=== PATIENT | male | born 1975 | race African-American/Black ===

== ENCOUNTER 2019-08-19 15:38 | Inpatient (IN) | payer OTHER ==
[~2019-08-19] VITALS: Ht 195.6 cm; Wt 115.0 kg
[2019-08-19] MEDS ORDERED: NITROGLYCERIN SUBLINGUAL 0.4 MG BOTTLE OF 25. SL STA (16:07)
--- NOTE | 2019-08-19 16:14 | PHYS DOC ---
Past Medical History Past Medical History: High Cholesterol, Hypertension, CA Past Surgical History: Other Additional Past Surgical Histo: 2 cardiac stents Alcohol Use: None Drug Use: None Adult General Chief Complaint Chief Complaint: CHEST PAIN HPI HPI Patient is a 44 year old -year-old male that states she's been having chest pain for the last couple days that got severe this morning. The patient states that he's also been having left arm pain this been ongoing for several days. Rates his pain as 8 out of 10 in severity. The patient has a history of an CA, hypertension, and dyslipidemia. He quit smoking 2 years ago. Review of Systems Review of Systems Constitutional: Denies fever or chills [] Eyes: Denies change in visual acuity, redness, or eye pain [] HENT: Denies nasal congestion or sore throat [] Respiratory: Denies cough or shortness of breath [] Cardiovascular: No additional information not addressed in HPI [] GI: Denies abdominal pain, nausea, vomiting, bloody stools or diarrhea [] : Denies dysuria or hematuria [] Musculoskeletal: Reports L arm pain. Integument: Denies rash or skin lesions [] Neurologic: Denies headache, focal weakness or sensory changes [] Endocrine: Denies polyuria or polydipsia [] Complete systems were reviewed and found to be within normal limits, except as documented in this note. Current Medications Current Medications Current Medications Medications (Trade) Dose Ordered Sig/[facility] Start Time Stop Time Status Last Admin Dose Admin Aspirin (Children'S Aspirin) 324 mg 1X ONCE 08/19/19 16:15 08/19/19 16:14 DC Morphine Sulfate (Morphine Sulfate) 4 mg 1X ONCE 08/19/19 16:30 08/19/19 16:31 DC 08/19/19 16:29 4 MG Nitroglycerin (Nitrostat) 0.4 mg PRN Q5MIN STAT 08/19/19 16:07 08/19/19 16:14 DC Sodium Chloride 1,000 ml @ 1,000 mls/hr 1X ONCE 08/19/19 16:15 08/19/19 17:14 DC 08/19/19 16:29 1,000 MLS/HR Allergies Allergies Allergies Coded Allergies Type Severity Reaction Last Updated Verified No Known Drug Allergies 08/19/19 No Physical Exam Physical Exam Constitutional: Well developed, well nourished, no acute distress, non-toxic appearance. [] HENT: Normocephalic, atraumatic, bilateral external ears normal, oropharynx mo ist, no oral exudates, nose normal. [] Eyes: PERRLA, EOMI, conjunctiva normal, no discharge. [] Neck: Normal range of motion, no tenderness, supple, no stridor. [] Cardiovascular:Heart rate regular rhythm, no murmur [] Lungs & Thorax: Bilateral breath sounds clear to auscultation [] Abdomen: Bowel sounds normal, soft, no tenderness, no masses, no pulsatile masses. [] Skin: Warm, dry, no erythema, no rash. [] Back: No tenderness, no CVA tenderness. [] Extremities: No tenderness, no cyanosis, no clubbing, ROM intact, no edema. [] Neurologic: Alert and oriented X 3, normal motor function, normal sensory function, no focal deficits noted. [] Psychologic: Affect normal, judgement normal, mood normal. [] Current Patient Data Vital Signs Vital Signs Date Time Temp Pulse Resp B/P (MAP) Pulse Ox O2 Delivery O2 Flow Rate FiO2 08/19/19 16:29 15 99 Room Air 08/19/19 15:46 98.5 70 167/94 (118) 2.0 98.5 Lab Values Laboratory Tests Test 08/19/19 15:49 White Blood Count 6.6 x10^3/uL (4.0-11.0) Red Blood Count 4.96 x10^6/uL (4.30-5.70) Hemoglobin 15.3 g/dL (13.0-17.5) Hematocrit 45.4 % (39.0-53.0) Mean Corpuscular Volume 92 fL (79-100) Mean Corpuscular Hemoglobin 31 pg (25-35) Mean Corpuscular Hemoglobin Concent 34 g/dL (31-37) Red Cell Distribution Width 13.5 % (11.5-14.5) Platelet Count 196 x10^3/uL (140-400) Neutrophils (%) (Auto) 70 % (31-73) Lymphocytes (%) (Auto) 22 % (24-48) L Monocytes (%) (Auto) 6 % (0-9) Eosinophils (%) (Auto) 1 % (0-3) Basophils (%) (Auto) 0 % (0-3) Neutrophils # (Auto) 4.7 x10^3/uL (1.8-7.7) Lymphocytes # (Auto) 1.5 x10^3/uL (1.0-4.8) Monocytes # (Auto) 0.4 x10^3/uL (0.0-1.1) Eosinophils # (Auto) 0.1 x10^3/uL (0.0-0.7) Basophils # (Auto) 0.0 x10^3/uL (0.0-0.2) Prothrombin Time 12.6 SEC (11.7-14.0) Prothrombin Time INR 1.0 (0.8-1.1) Activated Partial Thromboplast Time 30 SEC (24-38) Sodium Level 142 mmol/L (136-145) Potassium Level 4.6 mmol/L (3.5-5.1) Chloride Level 106 mmol/L (98-107) Carbon Dioxide Level 31 mmol/L (21-32) Anion Gap 5 (6-14) L Blood Urea Nitrogen 11 mg/dL (8-26) Creatinine 1.0 mg/dL (0.7-1.3) Estimated GFR (Cockcroft-Gault) 97.8 BUN/Creatinine Ratio 11 (6-20) Glucose Level 120 mg/dL (70-99) H Calcium Level 9.6 mg/dL (8.5-10.1) Total Bilirubin 0.3 mg/dL (0.2-1.0) Aspartate Amino Transferase (AST) 31 U/L (15-37) Alanine Aminotransferase (ALT) 47 U/L (16-63) Alkaline Phosphatase 99 U/L (46-116) Creatine Kinase 296 U/L (39-308) Creatine Kinase MB (Mass) 1.2 ng/mL (0.0-3.6) Creatine Kinase MB Relative Index 0.4 % (0-4) Troponin I Quantitative 0.039 ng/mL (0.000-0.055) Total Protein 7.3 g/dL (6.4-8.2) Albumin 4.2 g/dL (3.4-5.0) Albumin/Globulin Ratio 1.4 (1.0-1.7) Laboratory Tests 08/19/19 15:49 Laboratory Tests 08/19/19 15:49 EKG EKG EKG interpreted by Dr. Joseph Leftward axis, Sinus with rate of 45. No STEMI.[] Radiology/Procedures Radiology/Procedures [][facility] [address] [place] [address] IMAGING REPORT Signed PATIENT: BANDAR PASTRANA ACCOUNT: [id number] : 1975 LOCATION: ER AGE: 44 SEX: M EXAM STATUS: REG ER ORD. PHYSICIAN: CHRISTOPHER LAZCANO APRN REASON: chest pain PROCEDURE: CHEST PA & LATERAL CHEST PA LATERAL INDICATION: Chest pain. COMPARISON STUDY: None. FINDINGS: Lungs: Low lung volume. No consolidation. Prominent interstitial markings. Pleura: No pleural effusion or pneumothorax. Heart and Mediastinum: Mild cardiomegaly. The great vessels of the thorax are normal. Bones and Soft Tissues: The bones and soft tissues are within normal limits. IMPRESSION: Low lung volume with prominent interstitial markings, which may reflect mild interstitial edema. No confluent consolidation. Electronically signed by: Olena Kemp MD (08/19/2019 4:50 PM) [facility] DICTATED and SIGNED BY: OLENA KEMP MD DATE: 08/19/19 672 Course & Med Decision Making Course & Med Decision Making Pertinent Labs and Imaging studies reviewed. (See chart for details) Will get labs, chest x-ray, EKG, Patient was given asa and nitro x 4 on ambulance which did not help his pain. Initial labs are negative. Discussed with Dr. Coles and he accepts admission to hospital. Consulted Cards and ordered serial Cardiac Enzymes. Dragon Disclaimer Dragon Disclaimer This electronic medical record was generated, in whole or in part, using a voice recognition dictation system. Departure Departure Impression: Primary Impression: Chest pain Disposition: ADMITTED INPATIENT Admitting Physician: HIMJeffry Condition: GUARDED Referrals: NO PCP (PCP) The HEART Score for CP Pts HEART Score for Chest Pain: HEART Score for Chest Pain Response (Comments) Value History Highly Suspicious 2 ECG Normal 0 Age >45 - < 65 1 Risk Factors >3 Risk Factors or Hx CAD 2 Troponin < Normal Limit 0 Total 5 Risk Factors: Risk Factors: DM, Current or recent (<one month) smoker, HTN, HLP, family history of CAD, obesity. Risk Scores: Score 0 - 3: 2.5% MACE over next 6 weeks - Discharge Home Score 4 - 6: 20.3% MACE over next 6 weeks - Admit for Clinical Observation Score 7 - 10: 72.7% MACE over next 6 weeks - Early Invasive Strategies Problem Qualifiers Primary Impression: Chest pain Chest pain type: unspecified Qualified Codes: R07.9 - Chest pain, unspecified CHRISTOPHER LAZCANO APRN Aug 19, 2019 16:14
[2019-08-19] MEDS ORDERED: IV NORMAL SALINE 1000ML BAG 1,000 ML IV ONE (16:15)
[2019-08-19] MEDS ORDERED: ASPIRIN CHEWABLE 81 MG TABLET. PO ONE (16:15)
[2019-08-19 16:17] LABS: BASO % 0 % (0-3); EOS # 0.1 x10^3/uL (0.0-0.7); EOS % 1 % (0-3); HEMATOCRIT 45.4 % (39.0-53.0); HEMOGLOBIN 15.3 g/dL (13.0-17.5); LYMPH # 1.5 x10^3/uL (1.0-4.8); LYMPH % 22 % (24-48); MEAN CORPUSCULAR HEMOGLOBIN 31 pg (25-35); MEAN CORPUSCULAR HGB CONC 34 g/dL (31-37); MEAN CORPUSCULAR VOLUME 92 fL (79-100); MONO # 0.4 x10^3/uL (0.0-1.1); MONO % 6 % (0-9); NEUT # 4.7 x10^3/uL (1.8-7.7); NEUT % 70 % (31-73); PLATELET COUNT 196 x10^3/uL (140-400); RED BLOOD COUNT 4.96 x10^6/uL (4.30-5.70); RED CELL DISTRIBUTION WIDTH 13.5 % (11.5-14.5); WHITE BLOOD COUNT 6.6 x10^3/uL (4.0-11.0)
[2019-08-19 16:23] LABS: CALCIUM 9.6 mg/dL (8.5-10.1); GFR 97.8; POTASSIUM 4.6 mmol/L (3.5-5.1)
--- NOTE | 2019-08-19 16:24 | EKG ---
[facility] [address] [place] [address] Test Date: 2019-08-19 Test Time: 15:42:38 Pat Name: BANDAR PASTRANA Department: Room: Gender: M Quick Print Operator: : 1975 Requested By: CHRISTOPHER LAZCANO Order Number: [id number] Reading MD: Kiko Payne MD Measurements Intervals [place] Rate: 69 P: 0 DE: 168 QRS: -18 QRSD: 104 T: 59 QT: 410 QTc: 440 Interpretive Statements SINUS RHYTHM NON-SPECIFIC ST/T CHANGES Electronically Signed On 08-19-2019 22:57:34 CDT by Kiko Payne MD
[2019-08-19 16:26] LABS: PROTHROMBIN TIME PATIENT 12.6 SEC (11.7-14.0)
[2019-08-19 16:29] LABS: ALBUMIN 4.2 g/dL (3.4-5.0); ALBUMIN/GLOBULIN RATIO 1.4 (1.0-1.7); TOTAL BILIRUBIN 0.3 mg/dL (0.2-1.0); TOTAL PROTEIN 7.3 g/dL (6.4-8.2)
[2019-08-19] MEDS ORDERED: MORPHINE SULFATE 4 MG/ML VIAL. IV ONE (16:30)
--- NOTE | 2019-08-19 16:53 | RAD ---
CHEST PA LATERAL INDICATION: Chest pain. COMPARISON STUDY: None. FINDINGS: Lungs: Low lung volume. No consolidation. Prominent interstitial markings. Pleura: No pleural effusion or pneumothorax. Heart and Mediastinum: Mild cardiomegaly. The great vessels of the thorax are normal. Bones and Soft Tissues: The bones and soft tissues are within normal limits. IMPRESSION: Low lung volume with prominent interstitial markings, which may reflect mild interstitial edema. No confluent consolidation. Electronically signed by: Sam Kemp MD (08/19/2019 4:50 PM) [facility]
[2019-08-19] MEDS ORDERED: ONDANSETRON PF 4 MG/2 ML VIAL. IVP PRN ×2 (17:30→20:45)
--- NOTE | 2019-08-19 17:34 | PDOC1 ---
History and Physical Date of Admission Date of Admission DATE: 08/19/19 TIME: 17:34 History of Present Illness History of Present Illness Mr Gan is a 44 yo M inmate w/ PMHx HLD, HTN, CAD with prior IL and x2 stent who arrives with 2 corrections officers with progressive sharp chest pain. Pain is left sided in his chest 8/10 in intensity, sharp in quality. He notes radiation into his left arm and jaw as well as associated nausea. He has been having chest pain for the last couple days that got severe this morning. 2 nights ago the pain began and it remitted with x2 NTG and yesterday with x1 NTG, this morning took 2x NTG but the pain immediately returned. He was sent to ED for further care and received 4 additional NTG en route. He felt his pain improved with fentanyl and morphine. He quit smoking 2 years ago. He does not use illicit drugs EKG shows sinus rhythm with leftward axis. No ST segmental changes. Initial troponin was 0.039, second was 0.09 and CXR shows low lung volumes. Due to his prior history and elevated troponin he will be admitted for further care Past Medical History Cardiovascular: CAD, HTN, Hyperlipidemia Pulmonary: No pertinent hx GI: No pertinent hx Heme/Onc: No pertinent hx Hepatobiliary: No pertinent hx Psych: No pertinent hx Rheumatologic: No pertinent hx Infectious disease: No pertinent hx ENT: No pertinent hx Renal/: No pertinent hx Endocrine: No pertinent hx Dermatology: No pertinent hx Past Surgical History Past Surgical History: No pertinent history Family History Family History: High Cholestrol, Hypertension Social History Smoke: Quit ALCOHOL: none Drugs: None Current Problem List Problem List Problems Medical Problems: (1) Chest pain Status: Acute Current Medications Current Medications Current Medications Sodium Chloride 1,000 ml @ 1,000 mls/hr 1X ONCE IV Last administered on 08/19/19at 16:29; Start 08/19/19 at 16:15; Stop 08/19/19 at 17:14; Status DC Aspirin (Children'S Aspirin) 324 mg 1X ONCE PO ; Start 08/19/19 at 16:15; Stop 08/19/19 at 16:14; Status DC Nitroglycerin (Nitrostat) 0.4 mg PRN Q5MIN STAT SL ; Start 08/19/19 at 16:07; Stop 08/19/19 at 16:14; Status DC Morphine Sulfate (Morphine Sulfate) 4 mg 1X ONCE IV Last administered on 08/19/19at 16:29; Start 08/19/19 at 16:30; Stop 08/19/19 at 16:31; Status DC Ondansetron HCl (Zofran) 4 mg PRN Q8HRS PRN IVP NAUSEA/VOMITING; Start 08/19/19 at 17:30; Stop 08/20/19 at 17:29 Allergies Allergies: Coded Allergies: No Known Drug Allergies (Unverified , 08/19/19) ROS General: YES: Fatigue, Malaise; No: Chills, Night Sweats, Appetite, Other PSYCHOLOGICAL ROS: No: Anxiety, Behavioral Disorder, Concentration difficultie, Decreased libido, Depression, Disorientation, Hallucinations, Hostility, Irritablity, Memory difficulties, Mood Swings, Obsessive thoughts, Physical abuse, Sexual abuse, Sleep disturbances, Suicidal ideation, Other Eyes: No Blurry vision, No Decreased vision, No Double vision, No Dry eyes, No Excessive tearing, No Eye Pain, No Itchy Eyes, No Loss of vision, No Photophobia, No Scotomata, No Uses contacts, No Uses glasses, No Other HEENT: No: Heacaches, Visual Changes, Hearing change, Nasal congestion, Nasal discharge, Oral lesions, Sinus pain, Sore Throat, Epistaxis, Sneezing, Snoring, Tinnitus, Vertigo, Vocal changes, Other ALLERGY AND IMMUNOLOGY: No: Hives, Insect Bite Sensitivity, Itchy/Watery Eyes, Nasal Congestion, Post Nasal Drip, Seasonal Allergies, Other Hematological and Lymphatic: No: Bleeding Problems, Blood Clots, Blood Transfusions, Brusing, Night Sweats, Pallor, Swollen Lymph Nodes, Other ENDOCRINE: No: Breast Changes, Galactorrhea, Hair Pattern Changes, Hot Flashes, Malaise/lethargy, Mood Swings, Palpitations, Polydipsia/polyuria, Skin Changes, Temperature Intolerance, Unexpected Weight Changes, Other Breast: No New/Changing Breast Lumps, No Nipple changes, No Nipple discharge, No Other Respiratory: YES: Shortness of breath; No: Cough, Hemoptysis, Orthopnea, Pleuritic Pain, SOB with excertion, Sputum Changes, Stridor, Tachypnea, Wheezing, Other Cardiovascular: yes Chest Pain; No Palpitations, No Orthopnea, No Paroxysmal Noc. Dyspnea, No Edema, No Lt Headedness, No Other Gastrointestinal: Yes Nausea; No Vomiting, No Abdominal Pain, No Diarrhea, No Constipation, No Melena, No Hematochezia, No Other Genitourinary: No Dysuria, No Frequency, No Incontinence, No Hematuria, No Retention, No Discharge, No Urgency, No Pain, No Flank Pain, No Other, No , No , No , No , No , No , No Musculoskeletal: No Gait Disturbance, No Joint Pain, No Joint Stiffness, No Joint Swelling, No Muscle Pain, No Muscular Weakness, No Pain In:, No Swelling In:, No Other Neurological: No Behavorial Changes, No Bowel/Bladder ControlChng, No Confusion, No Dizziness, No Gait Disturbance, No Headaches, No Impaired Coord/balance, No Memory Loss, No Numbness/Tingling, No Seizures, No Speech Problems, No Tremors, No Visual Changes, No Weakness, No Other Skin: No Dry Skin, No Eczema, No Hair Changes, No Lumps, No Mole Changes, No Mottling, No Nail Changes, No Pruritus, No Rash, No Skin Lesion Changes, No Other, No Acne Physical Exam General: Alert, Oriented X3, Cooperative, No acute distress HEENT: Atraumatic, PERRLA, EOMI, Mucous membr. moist/pink Lungs: Clear to auscultation, Normal air movement Heart: S1S2, RRR, no gallops, no murmurs Abdomen: Normal bowel sounds, Soft, No tenderness, No hepatosplenomegaly, No masses Rectal Exam: not examined Extremities: No clubbing, No cyanosis, No edema, Normal pulses, No tenderness/swelling Skin: No rashes, No breakdown, No significant lesion Neuro: Normal gait, Normal speech, Strength at 5/5 X4 ext, Normal tone, Sensation intact, Cranial nerves 3-12 NL, Reflexes 2+ Psych/Mental Status: Mental status NL, Mood NL Vitals Vitals Vital Signs Date Time Temp Pulse Resp B/P (MAP) Pulse Ox O2 Delivery O2 Flow Rate FiO2 08/19/19 16:29 15 99 Room Air 08/19/19 15:46 98.5 70 167/94 (118) 2.0 98.5 Labs Labs Laboratory Tests Test 08/19/19 15:49 White Blood Count 6.6 x10^3/uL (4.0-11.0) Red Blood Count 4.96 x10^6/uL (4.30-5.70) Hemoglobin 15.3 g/dL (13.0-17.5) Hematocrit 45.4 % (39.0-53.0) Mean Corpuscular Volume 92 fL (79-100) Mean Corpuscular Hemoglobin 31 pg (25-35) Mean Corpuscular Hemoglobin Concent 34 g/dL (31-37) Red Cell Distribution Width 13.5 % (11.5-14.5) Platelet Count 196 x10^3/uL (140-400) Neutrophils (%) (Auto) 70 % (31-73) Lymphocytes (%) (Auto) 22 % (24-48) Monocytes (%) (Auto) 6 % (0-9) Eosinophils (%) (Auto) 1 % (0-3) Basophils (%) (Auto) 0 % (0-3) Neutrophils # (Auto) 4.7 x10^3/uL (1.8-7.7) Lymphocytes # (Auto) 1.5 x10^3/uL (1.0-4.8) Monocytes # (Auto) 0.4 x10^3/uL (0.0-1.1) Eosinophils # (Auto) 0.1 x10^3/uL (0.0-0.7) Basophils # (Auto) 0.0 x10^3/uL (0.0-0.2) Prothrombin Time 12.6 SEC (11.7-14.0) Prothromb Time International Ratio 1.0 (0.8-1.1) Activated Partial Thromboplast Time 30 SEC (24-38) Sodium Level 142 mmol/L (136-145) Potassium Level 4.6 mmol/L (3.5-5.1) Chloride Level 106 mmol/L (98-107) Carbon Dioxide Level 31 mmol/L (21-32) Anion Gap 5 (6-14) Blood Urea Nitrogen 11 mg/dL (8-26) Creatinine 1.0 mg/dL (0.7-1.3) Estimated GFR (Cockcroft-Gault) 97.8 BUN/Creatinine Ratio 11 (6-20) Glucose Level 120 mg/dL (70-99) Calcium Level 9.6 mg/dL (8.5-10.1) Total Bilirubin 0.3 mg/dL (0.2-1.0) Aspartate Amino Transf (AST/SGOT) 31 U/L (15-37) Alanine Aminotransferase (ALT/SGPT) 47 U/L (16-63) Alkaline Phosphatase 99 U/L (46-116) Creatine Kinase 296 U/L (39-308) Creatine Kinase MB (Mass) 1.2 ng/mL (0.0-3.6) Creatine Kinase MB Relative Index 0.4 % (0-4) Troponin I Quantitative 0.039 ng/mL (0.000-0.055) Total Protein 7.3 g/dL (6.4-8.2) Albumin 4.2 g/dL (3.4-5.0) Albumin/Globulin Ratio 1.4 (1.0-1.7) Laboratory Tests Test 08/19/19 15:49 White Blood Count 6.6 x10^3/uL (4.0-11.0) Red Blood Count 4.96 x10^6/uL (4.30-5.70) Hemoglobin 15.3 g/dL (13.0-17.5) Hematocrit 45.4 % (39.0-53.0) Mean Corpuscular Volume 92 fL (79-100) Mean Corpuscular Hemoglobin 31 pg (25-35) Mean Corpuscular Hemoglobin Concent 34 g/dL (31-37) Red Cell Distribution Width 13.5 % (11.5-14.5) Platelet Count 196 x10^3/uL (140-400) Neutrophils (%) (Auto) 70 % (31-73) Lymphocytes (%) (Auto) 22 % (24-48) Monocytes (%) (Auto) 6 % (0-9) Eosinophils (%) (Auto) 1 % (0-3) Basophils (%) (Auto) 0 % (0-3) Neutrophils # (Auto) 4.7 x10^3/uL (1.8-7.7) Lymphocytes # (Auto) 1.5 x10^3/uL (1.0-4.8) Monocytes # (Auto) 0.4 x10^3/uL (0.0-1.1) Eosinophils # (Auto) 0.1 x10^3/uL (0.0-0.7) Basophils # (Auto) 0.0 x10^3/uL (0.0-0.2) Prothrombin Time 12.6 SEC (11.7-14.0) Prothromb Time International Ratio 1.0 (0.8-1.1) Activated Partial Thromboplast Time 30 SEC (24-38) Sodium Level 142 mmol/L (136-145) Potassium Level 4.6 mmol/L (3.5-5.1) Chloride Level 106 mmol/L (98-107) Carbon Dioxide Level 31 mmol/L (21-32) Anion Gap 5 (6-14) Blood Urea Nitrogen 11 mg/dL (8-26) Creatinine 1.0 mg/dL (0.7-1.3) Estimated GFR (Cockcroft-Gault) 97.8 BUN/Creatinine Ratio 11 (6-20) Glucose Level 120 mg/dL (70-99) Calcium Level 9.6 mg/dL (8.5-10.1) Total Bilirubin 0.3 mg/dL (0.2-1.0) Aspartate Amino Transf (AST/SGOT) 31 U/L (15-37) Alanine Aminotransferase (ALT/SGPT) 47 U/L (16-63) Alkaline Phosphatase 99 U/L (46-116) Creatine Kinase 296 U/L (39-308) Creatine Kinase MB (Mass) 1.2 ng/mL (0.0-3.6) Creatine Kinase MB Relative Index 0.4 % (0-4) Troponin I Quantitative 0.039 ng/mL (0.000-0.055) Total Protein 7.3 g/dL (6.4-8.2) Albumin 4.2 g/dL (3.4-5.0) Albumin/Globulin Ratio 1.4 (1.0-1.7) Images Images CXR - Low lung volume with prominent interstitial markings, which may reflect mild interstitial edema. No confluent consolidation. VTE Prophylaxis Ordered VTE Prophylaxis Devices: No VTE Pharmacological Prophylaxi: Yes Assessment/Plan Assessment/Plan A/P: Chest pain - with high risk ACS and elevated troponin this is NSTEMI, heparin GT T, asa, O2, morphine, NTG prn. NPO after midnight, consult cardiology, trend out trops Elevated fasting blood glucose - no DM in history, will check TSH and A1c, fasting lipids as well HTN - will cont BP meds, monitor HLD - cont statin, check fasting lipids CAD - with 2 prior stents Abnormal CXR - low lung volumes could be poor inspiratory effort. He is not hypoxic, will check BNP. No immediate indication for diuretics FEN -NPO PPX - heparin GTT, Protonix IV x1 FULL CODE Dispo - Inpatient for high risk ACS/NSTEMI ADA HERNANDEZ MD Aug 19, 2019 17:34
[2019-08-19] MEDS ORDERED: HEPARIN for IV BOLUS 10,000 UNIT/10 ML VIAL. IV ONE (18:43)
[2019-08-19] MEDS ORDERED: HEPARIN for IV BOLUS 10,000 UNIT/10 ML VIAL. IV PRN (18:43)
[2019-08-19] MEDS ORDERED: HEPARIN 25,000UTS/500ML PREMIX 500 ML IV PRN (18:45)
[2019-08-19 19:50] VITALS: BP 160/85
--- NOTE | 2019-08-19 19:52 | NUR ---
A 44 YO MALE ADMITTED WITH CHEST PAIN, ADMISSION PACKET GIVEN, ORIENTED TO UNIT AND STAFF, CALL LIGHT IN PLACE WILL CONT TO MONITOR PT STATUS AND SAFETY. PT IS FROM [facility] WITH 2GUARDS WITH SHACKLES ON ARMS AND ANKLES. PMRN
[2019-08-19] MEDS ORDERED: ASPI-630 PO (20:40)
[2019-08-19] MEDS ORDERED: ATOR40TA PO (20:40)
[2019-08-19] MEDS ORDERED: METO25TA4 PO (20:40)
[2019-08-19] MEDS ORDERED: BISM262T6 PO (20:40)
[2019-08-19] MEDS ORDERED: CALC200T3 PO (20:40)
[2019-08-19] MEDS ORDERED: NITR0.4T22 SL (20:40)
[2019-08-19] MEDS ORDERED: NITROGLYCERIN SUBLINGUAL 0.4 MG BOTTLE OF 25. SL PRN (20:45)
[2019-08-19] MEDS ORDERED: CALCIUM CARBONATE 500 MG TAB.CHEW PO PRN (20:45)
[2019-08-19] MEDS ORDERED: DEXTROSE 50% 25 GM / 50ML DISP.SYRIN. IV PRN (21:00)
[2019-08-19] MEDS ORDERED: PANTOPRAZOLE IV PUSH 40 MG VIAL. IVP ONE (21:00)
[2019-08-19] MEDS: ATORVASTATIN CALCIUM 40 MG TABLET. PO SCH (22:16)
[2019-08-19] MEDS: METOPROLOL TART IMMED RELEASE 25 MG TABLET. PO SCH (22:17)
[2019-08-19] MEDS: MORPHINE SULFATE 4 MG/ML VIAL. IV PRN (22:18)
[2019-08-19 22:53] VITALS: BP 129/79
[2019-08-19] MEDS ORDERED: NITROGLYCERIN PREMIX 250 ML IV PRN (23:00)
--- NOTE | 2019-08-19 23:00 | NUR ---
DR MCKENZIE NOTIFIED OF ELEVATED TROPONIN ORDER GIVEN TO START NITRO GTT AT 20, KEEP SBP LESS THAN 140, 02 AT 2L, HEPARIN GTT INFUSING PER ORDER, VSS STABLE AT THIS TIME, PT C/O PRESSURE WILL CONT TO MONITOR PT. PMRN
[2019-08-19 23:53] VITALS: BP 124/75
[2019-08-20] VITALS (21 sets, daily range): BP systolic 98–147; BP diastolic 55–89
[2019-08-20] MEDS ORDERED: ACETAMINOPHEN 325 MG TABLET. PO PRN ×2 (00:15→17:15)
[2019-08-20 07:48] LABS: CALCIUM 9.1 mg/dL (8.5-10.1); CREATININE 0.9 mg/dL (0.7-1.3); GFR 110.4; POTASSIUM 3.8 mmol/L (3.5-5.1)
[2019-08-20 07:53] LABS: CHOLESTEROL/HDL RATIO 3.4
[2019-08-20] MEDS ORDERED: INSULIN LISPRO 300 UNITS/3 ML VIAL. SQ SCH (08:00)
[2019-08-20] MEDS: BISMUTH SUBSALICYLATE 262 MG/15 ML ORAL.SUSP 236ML BOTTLE. PO SCH (08:03)
[2019-08-20 08:51] LABS: HEMOGLOBIN 14.7 g/dL (13.0-17.5); RED BLOOD COUNT 4.83 x10^6/uL (4.30-5.70); RED CELL DISTRIBUTION WIDTH 13.6 % (11.5-14.5); WHITE BLOOD COUNT 7.6 x10^3/uL (4.0-11.0)
--- NOTE | 2019-08-20 08:51 | PDOC2 ---
CARDIAC CONSULT DATE OF CONSULT Date of Consult DATE: 08/20/19 TIME: 08:39 REASON FOR CONSULT Reason for Consult: Chest pain REFERRING PHYSICIAN Referring Physician: Gunjan SOURCE Source: Chart review, Patient HISTORY OF PRESENT ILLNESS HISTORY OF PRESENT ILLNESS This is a 44 yo male admitted for complains of chest pain. In the last 1-2 months he has been having exertional CP and [place]. In the last 2 days these have intensified. Reports that yesterday he had mid chest pressure that radiated to his left arm in the morning and it went away, it came back and stayed. He received 2 NTG which helped then returned then another NTG and stayed on. Associated symptoms include nausea, SOA, diaphoresis. No recent falls, injury, bleeding problems nor blood clots. He had 2 stents in 2016 and stress test in 2017 in [place]. He has been taking BP meds, ASA and statin. He resides in the correctional facility. PAST MEDICAL HISTORY Cardiovascular: CAD, HTN, Hyperlipidemia Pulmonary: No pertinent hx CENTRAL NERVOUS SYSTEM: Other (No pertinent history) GI: No pertinent hx Heme/Onc: No pertinent hx Hepatobiliary: No pertinent hx Psych: No pertinent hx Musculoskeletal: Other (none pertinent ) Rheumatologic: No pertinent hx Infectious disease: No pertinent hx ENT: No pertinent hx Renal/: No pertinent hx Endocrine: No pertinent hx Dermatology: No pertinent hx PAST SURGICAL HISTORY Past Surgical History: Other (PCI) FAMILY HISTORY Family History noncontributory SOCIAL HISTORY Smoke: Quit ALCOHOL: none Drugs: None Lives: Alone (correctional facility) CURRENT MEDICATIONS CURRENT MEDICATIONS Current Medications Medications (Trade) Dose Ordered Sig/Elisa Route PRN Reason Start Time Stop Time Status Last Admin Dose Admin Sodium Chloride 1,000 ml @ 1,000 mls/hr 1X ONCE IV 08/19/19 16:15 08/19/19 17:14 DC 08/19/19 16:29 Morphine Sulfate (Morphine Sulfate) 4 mg 1X ONCE IV 08/19/19 16:30 08/19/19 16:31 DC 08/19/19 16:29 Heparin Sodium (Porcine) (Heparin Sodium) 4,000 unit 1X ONCE IV 08/19/19 18:43 08/19/19 18:46 DC 08/19/19 18:50 Heparin Sodium/ Dextrose 500 ml @ 20 mls/hr CONT PRN IV PER PROTOCOL 08/19/19 18:45 08/19/19 18:51 Atorvastatin Calcium (Lipitor) 40 mg QHS PO 08/19/19 21:00 08/19/19 22:16 Metoprolol Tartrate (Lopressor) 25 mg BID PO 08/19/19 21:00 08/19/19 22:17 Morphine Sulfate (Morphine Sulfate) 4 mg PRN Q2HR PRN IV MODERATE TO SEVERE PAIN 08/19/19 20:45 08/19/19 22:18 Pantoprazole Sodium (PROTONIX VIAL for IV PUSH) 40 mg 1X ONCE IVP 08/19/19 21:00 08/19/19 21:01 DC 08/19/19 22:46 Nitroglycerin/ Dextrose 250 ml @ 1.5 mls/hr CONT PRN IV SEE I/O RECORD 08/19/19 23:00 08/19/19 23:26 ALLERGIES ALLERGIES: Coded Allergies: No Known Drug Allergies (Unverified , 08/19/19) ROS Review of System 14 point ROS evaluated with pertinent positives noted per HPI PHYSICAL EXAM General: Alert, Oriented X3, Cooperative, No acute distress HEENT: Atraumatic, Mucous membr. moist/pink Lungs: Clear to auscultation, Normal air movement Heart: Regular rate (SR), Normal S1, Normal S2, No murmurs Abdomen: Soft, No tenderness Extremities: No cyanosis, No edema Skin: No breakdown Neuro: Normal speech, Sensation intact Psych/Mental Status: Mental status NL, Other (flat affect) MUSCULOSKELETAL: Osteoarthritic changes both hands VITALS/I&O VITALS/I&O: Vital Signs Date Time Temp Pulse Resp B/P (MAP) Pulse Ox O2 Delivery O2 Flow Rate FiO2 08/20/19 07:24 98.3 66 18 108/67 (81) 97 Nasal Cannula 2.0 98.3 I & O 08/19/19 08/19/19 08/20/19 15:00 23:00 07:00 Intake Total 540 ml 550 ml Output Total 625 ml Balance -85 ml 550 ml LABS Lab: Laboratory Tests Test 08/19/19 15:49 08/19/19 18:12 08/19/19 20:40 08/20/19 00:00 White Blood Count 6.6 x10^3/uL (4.0-11.0) Red Blood Count 4.96 x10^6/uL (4.30-5.70) Hemoglobin 15.3 g/dL (13.0-17.5) Hematocrit 45.4 % (39.0-53.0) Mean Corpuscular Volume 92 fL (79-100) Mean Corpuscular Hemoglobin 31 pg (25-35) Mean Corpuscular Hemoglobin Concent 34 g/dL (31-37) Red Cell Distribution Width 13.5 % (11.5-14.5) Platelet Count 196 x10^3/uL (140-400) Neutrophils (%) (Auto) 70 % (31-73) Lymphocytes (%) (Auto) 22 % (24-48) L Monocytes (%) (Auto) 6 % (0-9) Eosinophils (%) (Auto) 1 % (0-3) Basophils (%) (Auto) 0 % (0-3) Neutrophils # (Auto) 4.7 x10^3/uL (1.8-7.7) Lymphocytes # (Auto) 1.5 x10^3/uL (1.0-4.8) Monocytes # (Auto) 0.4 x10^3/uL (0.0-1.1) Eosinophils # (Auto) 0.1 x10^3/uL (0.0-0.7) Basophils # (Auto) 0.0 x10^3/uL (0.0-0.2) Prothrombin Time 12.6 SEC (11.7-14.0) Prothrombin Time INR 1.0 (0.8-1.1) Activated Partial Thromboplast Time 30 SEC (24-38) Sodium Level 142 mmol/L (136-145) Potassium Level 4.6 mmol/L (3.5-5.1) Chloride Level 106 mmol/L (98-107) Carbon Dioxide Level 31 mmol/L (21-32) Anion Gap 5 (6-14) L Blood Urea Nitrogen 11 mg/dL (8-26) Creatinine 1.0 mg/dL (0.7-1.3) Estimated GFR (Cockcroft-Gault) 97.8 BUN/Creatinine Ratio 11 (6-20) Glucose Level 120 mg/dL (70-99) H Calcium Level 9.6 mg/dL (8.5-10.1) Total Bilirubin 0.3 mg/dL (0.2-1.0) Aspartate Amino Transferase (AST) 31 U/L (15-37) Alanine Aminotransferase (ALT) 47 U/L (16-63) Alkaline Phosphatase 99 U/L (46-116) Creatine Kinase 296 U/L (39-308) 301 U/L (39-308) 341 U/L (39-308) H Creatine Kinase MB (Mass) 1.2 ng/mL (0.0-3.6) 2.2 ng/mL (0.0-3.6) 12.3 ng/mL (0.0-3.6) H Creatine Kinase MB Relative Index 0.4 % (0-4) 0.7 % (0-4) 3.6 % (0-4) Troponin I Quantitative 0.039 ng/mL (0.000-0.055) 0.093 ng/mL (0.000-0.055) 0.733 ng/mL (0.000-0.055) OD-Ftc-D-Type Natriuretic Peptide 8 pg/mL (0-124) Total Protein 7.3 g/dL (6.4-8.2) Albumin 4.2 g/dL (3.4-5.0) Albumin/Globulin Ratio 1.4 (1.0-1.7) Thyroid Stimulating Hormone (TSH) 1.734 uIU/mL (0.358-3.74) Heparin Anti-Xa Act, Unfractionated 0.48 IU/mL (0.30-0.70) Test 08/20/19 06:25 08/20/19 07:32 Heparin Anti-Xa Act, Unfractionated 0.54 IU/mL (0.30-0.70) Sodium Level 143 mmol/L (136-145) Potassium Level 3.8 mmol/L (3.5-5.1) Chloride Level 108 mmol/L (98-107) H Carbon Dioxide Level 27 mmol/L (21-32) Anion Gap 8 (6-14) Blood Urea Nitrogen 10 mg/dL (8-26) Creatinine 0.9 mg/dL (0.7-1.3) Estimated GFR (Cockcroft-Gault) 110.4 Glucose Level 90 mg/dL (70-99) Calcium Level 9.1 mg/dL (8.5-10.1) Triglycerides Level 91 mg/dL (0-150) Cholesterol Level 135 mg/dL (0-200) LDL Cholesterol, Calculated 77 mg/dL (0-100) VLDL Cholesterol, Calculated 18 mg/dL (0-40) Non-HDL Cholesterol Calculated 95 mg/dL (0-129) HDL Cholesterol 40 mg/dL (40-60) Cholesterol/HDL Ratio 3.4 Glucose (Fingerstick) 90 mg/dL (70-99) Laboratory Tests 08/19/19 15:49 Laboratory Tests 08/19/19 15:49 08/20/19 06:25 ASSESSMENT/PLAN ASSESSMENT/PLAN 1. NSTEMI 2. CAD: past stents 3. HTN: controlled 4. HLP: controlled 5. Obesity Recommendations 1. ASA, Heparin drip 2. TTE 3. LHC today, risks and benefits discussed, agreeable to proceed. 4. Continue with statin and BB. ANA SHARMA APRN Aug 20, 2019 08:51
[2019-08-20] MEDS ORDERED: ASPIRIN CHEWABLE 81 MG TABLET. PO SCH (09:00)
[2019-08-20] MEDS: METOPROLOL TART IMMED RELEASE 25 MG TABLET. PO SCH ×2 (09:22→21:03)
--- NOTE | 2019-08-20 11:20 | CARD ---
MR#: [id number] Date of Study: 08/20/2019 Ordering Physician: ADA HERNANDEZ, Referring Physician: ADA HERNANDEZ, Tech: Tammy Biswas APPROVED REPORT EXAM: Two-dimensional and M-mode echocardiogram with Doppler and color Doppler. Other Information Quality : AverageHR: 66bpm INDICATION Non STEMI 2D DIMENSIONS RVDd3.2 (2.9-3.5cm)Left Atrium(2D)4.2 (1.6-4.0cm) IVSd1.3 (0.7-1.1cm)Aortic Root(2D)3.4 (2.0-3.7cm) LVDd5.0 (3.9-5.9cm)LVOT Diameter2.3 (1.8-2.4cm) PWd1.2 (0.7-1.1cm)LVDs3.8 (2.5-4.0cm) FS (%) 23.1 %SV54.1 ml Aortic Valve AoV Peak Wyatt.96.5cm/sAoV VTI18.3cm AO Peak GR.3.7mmHgLVOT VTI 20.53cm AO Mean GR.3mmHg Mitral Valve MV E Pyxvcaxy50.6cm/sMV DECEL [id number] MV A Uamvcfry56.7cm/sE/A Ratio1.1 TDI Lateral E' P. V10.17cm/sMedial E' P. V5.92cm/s E/Lateral E'4.8E/Medial E'8.2 Pulmonary Vein S1 Grskqbzh22.9cm/sS2 Esjruiyt24.80cm/s D2 Acjibcuj87.8cm/sPVa [id number] LEFT VENTRICLE The left ventricle is normal size. There is mild concentric left ventricular hypertrophy. The left ve ntricular systolic function is low normal. The Ejection Fraction is 50-55%. There is normal LV segmen corby wall motion. Transmitral Doppler flow pattern is Grade I-abnormal relaxation pattern. RIGHT VENTRICLE The right ventricle is borderline dilated. There is normal right ventricular wall thickness. The righ t ventricular systolic function is normal. ATRIA The left atrium size is normal. The right atrium size is normal. The interatrial septum is intact wit h no evidence for an atrial septal defect or patent foramen ovale as noted on 2-D or Doppler imaging. AORTIC VALVE The aortic valve is normal in structure and function. Doppler and Color Flow revealed no significant aortic regurgitation. There is no significant aortic valvular stenosis. MITRAL VALVE The mitral valve is normal in structure and function. There is no evidence of mitral valve prolapse. There is no mitral valve stenosis. Doppler and Color Flow revealed trace mitral valve regurgitation. TRICUSPID VALVE The tricuspid valve is normal in structure and function. Doppler and Color Flow revealed no tricuspid valve regurgitation noted. There is no tricuspid valve prolapse or vegetation. There is no tricuspid valve stenosis. PULMONIC VALVE The pulmonary valve is normal in structure and function. Doppler and Color Flow revealed trace pulmon ic valvular regurgitation. GREAT VESSELS The aortic root is normal in size. The IVC was not visualized. PERICARDIAL EFFUSION There is no evidence of significant pericardial effusion. Critical Notification Critical Value: No <Conclusion> The left ventricle is normal size. The left ventricular systolic function is low normal. The Ejection Fraction is 50-55%. There is normal LV segmental wall motion. There is mild concentric left ventricular hypertrophy. There is no significant aortic valvular stenosis. Doppler and Color Flow revealed no significant aortic regurgitation. Doppler and Color Flow revealed trace mitral valve regurgitation. Doppler and Color Flow revealed no tricuspid valve regurgitation noted. Signed by : Hernandez Vann MD Electronically Approved : 08/20/2019 11:20:13
[2019-08-20] MEDS: ANTI-COAG MONITOR BY PHARMACY. MC PRN (13:42)
[2019-08-20] MEDS ORDERED: LIDOCAINE 1% Multi-Dose 20 ML VIAL. ONE (14:07)
[2019-08-20] MEDS ORDERED: IOHEXOL 300 MG/ML 100ML VIAL. ONE (14:19)
[2019-08-20] MEDS ORDERED: fentaNYL PF VIAL 100 MCG/2 ML VIAL ONE (14:21)
[2019-08-20] MEDS ORDERED: MIDAZOLAM HCL/PF 2 MG/2 ML VIAL. ONE ×2 (14:22→14:53)
[2019-08-20] MEDS ORDERED: HEPARIN for IV BOLUS 10,000 UNIT/10 ML VIAL. ONE (15:37)
[2019-08-20] MEDS ORDERED: HEPARIN 25,000UTS/500ML PREMIX 500 ML IV ONE (15:37)
[2019-08-20] MEDS ORDERED: HEPARIN for IV BOLUS 10,000 UNIT/10 ML VIAL. IV PRN (15:45)
[2019-08-20] MEDS ORDERED: HEPARIN for IV BOLUS 10,000 UNIT/10 ML VIAL. IV ONE (15:45)
[2019-08-20] MEDS ORDERED: TIROFIBAN 12.5MG -0.9% NS 250 ML IV ONE (15:48)
[2019-08-20] MEDS ORDERED: MIDAZOLAM HCL/PF 2 MG/2 ML VIAL. IV ONE (16:00)
[2019-08-20] MEDS ORDERED: LIDOCAINE 1% Multi-Dose 20 ML VIAL. INJ ONE (16:00)
[2019-08-20] MEDS ORDERED: fentaNYL PF VIAL 100 MCG/2 ML VIAL IV ONE (16:00)
[2019-08-20] MEDS ORDERED: IOHEXOL 300 MG/ML 100ML VIAL. IART ONE (16:00)
[2019-08-20] MEDS: TIROFIBAN 12.5MG -0.9% NS 250 ML IV PRN ×2 (16:02→23:02)
[2019-08-20] MEDS: HEPARIN 25,000UTS/500ML PREMIX 500 ML IV PRN ×2 (16:04→19:31)
--- NOTE | 2019-08-20 17:04 | CARD ---
MR#: [id number] Date of Study: 08/20/2019 Ordering Physician: ANA SHARMA, Referring Physician: ANA SHARMA Tech: Keturah Baez RT (R) APPROVED REPORT Procedures Selective coronary angiogram The patient is a 44-year-old male with a history of coronary artery disease and previous stents. He d eveloped chest pain at his correctional facility and was transferred to the hospital. He was initiall y treated with heparin and nitroglycerin and became pain free. Peak troponin was 0.8. In this setting heart catheterization was recommended. Risks and benefits were discussed with the patient. He agreed to proceed. After informed consent was obtained the patient was brought to the heart catheterization lab. The are a of the right femoral artery was prepared the usual manner with Betadine, sterile draping and local anesthetic. An 18-gauge needle was used to enter the right femoral artery, a wire placed and a 6 Fren ch sheath placed over the wire. With the assistance of a J-wire, a 6 Qatari JL4 and then a 6 Qatari J L 5 diagnostic catheters were advanced to the ascending aorta and used to engage the left system. Seq uential injections in various views were obtained. A 6 Qatari Nathan right diagnostic catheter was then used to engage the right coronary artery system. Sequential injections in various views were obt ained. Imaging showed a proximal 70% lesion in a left circumflex branch. However it also showed a mid sized right coronary artery with a severe mid lesion and very heavy thrombus burden post-lesion. Leeann ges were reviewed and discussed. At this time we'll not proceed with attempted intervention the right coronary artery due to the significantly high risk of distal embolization with such a large thrombus load. The sheath was removed and sealed with an angioseal product. We'll treat with heparin, IIb III a inhibitors and platelet inhibitors. We'll closely monitor the patient. We'll then returned to the l for revascularize of the right coronary artery in several days. Results of the test and plan were discussed with the patient. Risks and benefits were also discussed. He remains pain-free in the labor atory. Findings. Hemodynamics. Aortic root pressure of 102/70. Coronaries. Left main. Left main was a large vessel with no lesions. Left anterior descending. The LAD was a moderate size vessel with normal distribution. It had a mid w idely patent stent. In another area it had a mid 35-40% lesion. Left circumflex. The left circumflex is a moderate size vessel. In a branch vessel there was a 60-70% lesion. Right coronary artery. The right coronary was a moderate size vessel. As noted above it had a severe mid lesion with a very heavy thrombus burden. <Conclusion> Severe right coronary artery lesion as above. Patent LAD stent and moderate disease in the remaining LAD. Borderline lesion in a left circumflex branch. Signed by : Hernandez Vann MD Electronically Approved : 08/20/2019 17:04:01
[2019-08-20] MEDS ORDERED: IV NORMAL SALINE 1000ML BAG 1,000 ML IV SCH (17:08)
[2019-08-20] MEDS ORDERED: fentaNYL PF VIAL 100 MCG/2 ML VIAL IV PRN (17:15)
[2019-08-20] MEDS ORDERED: NITROGLYCERIN SUBLINGUAL 0.4 MG BOTTLE OF 25. SL PRN (17:15)
[2019-08-20] MEDS ORDERED: 0.9 % SODIUM CHLORIDE 10 ML DISP.SYRIN. IV PRN (17:15)
[2019-08-20] MEDS ORDERED: TICAGRELOR 90 MG TABLET. PO ONE (17:30)
--- NOTE | 2019-08-20 18:12 | PDOC ---
PROGRESS NOTES Chief Complaint Chief Complaint Chest pain - NSTEMI, heparin GTT, cardiac cath today dm2 HTN - will cont BP meds, monitor HLD - cont statin, check fasting lipids CAD - with 2 prior stents History of Present Illness History of Present Illness pain better ready for cath no new complaints guards assist with history, pt at [facility] lucían[place] Vitals Vitals Vital Signs Date Time Temp Pulse Resp B/P (MAP) Pulse Ox O2 Delivery O2 Flow Rate FiO2 08/20/19 18:00 91 147/64 (91) 97 Nasal Cannula 2.0 08/20/19 16:07 16 08/20/19 10:26 98.3 98.3 Physical Exam General: Alert, Oriented X3, Cooperative, No acute distress Heart: Regular rate (SR), Normal S1, Normal S2, No murmurs Abdomen: Soft, No tenderness Extremities: No cyanosis, No edema Skin: No breakdown Labs LABS Laboratory Tests Test 08/19/19 18:12 08/19/19 20:40 08/20/19 00:00 08/20/19 06:25 Creatine Kinase 301 U/L (39-308) 341 U/L (39-308) Creatine Kinase MB (Mass) 2.2 ng/mL (0.0-3.6) 12.3 ng/mL (0.0-3.6) Creatine Kinase MB Relative Index 0.7 % (0-4) 3.6 % (0-4) Troponin I Quantitative 0.093 ng/mL (0.000-0.055) 0.733 ng/mL (0.000-0.055) Heparin Anti-Xa Act, Unfractionated 0.48 IU/mL (0.30-0.70) 0.54 IU/mL (0.30-0.70) White Blood Count 7.6 x10^3/uL (4.0-11.0) Red Blood Count 4.83 x10^6/uL (4.30-5.70) Hemoglobin 14.7 g/dL (13.0-17.5) Hematocrit 44.0 % (39.0-53.0) Mean Corpuscular Volume 91 fL (79-100) Mean Corpuscular Hemoglobin 30 pg (25-35) Mean Corpuscular Hemoglobin Concent 33 g/dL (31-37) Red Cell Distribution Width 13.6 % (11.5-14.5) Platelet Count 199 x10^3/uL (140-400) Sodium Level 143 mmol/L (136-145) Potassium Level 3.8 mmol/L (3.5-5.1) Chloride Level 108 mmol/L (98-107) Carbon Dioxide Level 27 mmol/L (21-32) Anion Gap 8 (6-14) Blood Urea Nitrogen 10 mg/dL (8-26) Creatinine 0.9 mg/dL (0.7-1.3) Estimated GFR (Cockcroft-Gault) 110.4 Glucose Level 90 mg/dL (70-99) Calcium Level 9.1 mg/dL (8.5-10.1) Triglycerides Level 91 mg/dL (0-150) Cholesterol Level 135 mg/dL (0-200) LDL Cholesterol, Calculated 77 mg/dL (0-100) VLDL Cholesterol, Calculated 18 mg/dL (0-40) Non-HDL Cholesterol Calculated 95 mg/dL (0-129) HDL Cholesterol 40 mg/dL (40-60) Cholesterol/HDL Ratio 3.4 Test 08/20/19 07:32 08/20/19 11:25 Glucose (Fingerstick) 90 mg/dL (70-99) 92 mg/dL (70-99) Assessment and Plan Assessmemt and Plan Problems Medical Problems: (1) Chest pain Status: Acute Comment Review of Relevant I have reviewed the following items hernan (where applicable) has been applied. Labs Laboratory Tests Test 08/19/19 15:49 08/19/19 18:12 08/19/19 20:40 08/20/19 00:00 White Blood Count 6.6 x10^3/uL (4.0-11.0) Red Blood Count 4.96 x10^6/uL (4.30-5.70) Hemoglobin 15.3 g/dL (13.0-17.5) Hematocrit 45.4 % (39.0-53.0) Mean Corpuscular Volume 92 fL (79-100) Mean Corpuscular Hemoglobin 31 pg (25-35) Mean Corpuscular Hemoglobin Concent 34 g/dL (31-37) Red Cell Distribution Width 13.5 % (11.5-14.5) Platelet Count 196 x10^3/uL (140-400) Neutrophils (%) (Auto) 70 % (31-73) Lymphocytes (%) (Auto) 22 % (24-48) Monocytes (%) (Auto) 6 % (0-9) Eosinophils (%) (Auto) 1 % (0-3) Basophils (%) (Auto) 0 % (0-3) Neutrophils # (Auto) 4.7 x10^3/uL (1.8-7.7) Lymphocytes # (Auto) 1.5 x10^3/uL (1.0-4.8) Monocytes # (Auto) 0.4 x10^3/uL (0.0-1.1) Eosinophils # (Auto) 0.1 x10^3/uL (0.0-0.7) Basophils # (Auto) 0.0 x10^3/uL (0.0-0.2) Prothrombin Time 12.6 SEC (11.7-14.0) Prothromb Time International Ratio 1.0 (0.8-1.1) Activated Partial Thromboplast Time 30 SEC (24-38) Sodium Level 142 mmol/L (136-145) Potassium Level 4.6 mmol/L (3.5-5.1) Chloride Level 106 mmol/L (98-107) Carbon Dioxide Level 31 mmol/L (21-32) Anion Gap 5 (6-14) Blood Urea Nitrogen 11 mg/dL (8-26) Creatinine 1.0 mg/dL (0.7-1.3) Estimated GFR (Cockcroft-Gault) 97.8 BUN/Creatinine Ratio 11 (6-20) Glucose Level 120 mg/dL (70-99) Calcium Level 9.6 mg/dL (8.5-10.1) Total Bilirubin 0.3 mg/dL (0.2-1.0) Aspartate Amino Transf (AST/SGOT) 31 U/L (15-37) Alanine Aminotransferase (ALT/SGPT) 47 U/L (16-63) Alkaline Phosphatase 99 U/L (46-116) Creatine Kinase 296 U/L (39-308) 301 U/L (39-308) 341 U/L (39-308) Creatine Kinase MB (Mass) 1.2 ng/mL (0.0-3.6) 2.2 ng/mL (0.0-3.6) 12.3 ng/mL (0.0-3.6) Creatine Kinase MB Relative Index 0.4 % (0-4) 0.7 % (0-4) 3.6 % (0-4) Troponin I Quantitative 0.039 ng/mL (0.000-0.055) 0.093 ng/mL (0.000-0.055) 0.733 ng/mL (0.000-0.055) SX-Jwn-O-Type Natriuretic Peptide 8 pg/mL (0-124) Total Protein 7.3 g/dL (6.4-8.2) Albumin 4.2 g/dL (3.4-5.0) Albumin/Globulin Ratio 1.4 (1.0-1.7) Thyroid Stimulating Hormone (TSH) 1.734 uIU/mL (0.358-3.74) Heparin Anti-Xa Act, Unfractionated 0.48 IU/mL (0.30-0.70) Test 08/20/19 06:25 08/20/19 07:32 08/20/19 11:25 White Blood Count 7.6 x10^3/uL (4.0-11.0) Red Blood Count 4.83 x10^6/uL (4.30-5.70) Hemoglobin 14.7 g/dL (13.0-17.5) Hematocrit 44.0 % (39.0-53.0) Mean Corpuscular Volume 91 fL (79-100) Mean Corpuscular Hemoglobin 30 pg (25-35) Mean Corpuscular Hemoglobin Concent 33 g/dL (31-37) Red Cell Distribution Width 13.6 % (11.5-14.5) Platelet Count 199 x10^3/uL (140-400) Heparin Anti-Xa Act, Unfractionated 0.54 IU/mL (0.30-0.70) Sodium Level 143 mmol/L (136-145) Potassium Level 3.8 mmol/L (3.5-5.1) Chloride Level 108 mmol/L (98-107) Carbon Dioxide Level 27 mmol/L (21-32) Anion Gap 8 (6-14) Blood Urea Nitrogen 10 mg/dL (8-26) Creatinine 0.9 mg/dL (0.7-1.3) Estimated GFR (Cockcroft-Gault) 110.4 Glucose Level 90 mg/dL (70-99) Calcium Level 9.1 mg/dL (8.5-10.1) Triglycerides Level 91 mg/dL (0-150) Cholesterol Level 135 mg/dL (0-200) LDL Cholesterol, Calculated 77 mg/dL (0-100) VLDL Cholesterol, Calculated 18 mg/dL (0-40) Non-HDL Cholesterol Calculated 95 mg/dL (0-129) HDL Cholesterol 40 mg/dL (40-60) Cholesterol/HDL Ratio 3.4 Glucose (Fingerstick) 90 mg/dL (70-99) 92 mg/dL (70-99) Laboratory Tests Test 08/19/19 18:12 08/19/19 20:40 08/20/19 00:00 08/20/19 06:25 Creatine Kinase 301 U/L (39-308) 341 U/L (39-308) Creatine Kinase MB (Mass) 2.2 ng/mL (0.0-3.6) 12.3 ng/mL (0.0-3.6) Creatine Kinase MB Relative Index 0.7 % (0-4) 3.6 % (0-4) Troponin I Quantitative 0.093 ng/mL (0.000-0.055) 0.733 ng/mL (0.000-0.055) Heparin Anti-Xa Act, Unfractionated 0.48 IU/mL (0.30-0.70) 0.54 IU/mL (0.30-0.70) White Blood Count 7.6 x10^3/uL (4.0-11.0) Red Blood Count 4.83 x10^6/uL (4.30-5.70) Hemoglobin 14.7 g/dL (13.0-17.5) Hematocrit 44.0 % (39.0-53.0) Mean Corpuscular Volume 91 fL (79-100) Mean Corpuscular Hemoglobin 30 pg (25-35) Mean Corpuscular Hemoglobin Concent 33 g/dL (31-37) Red Cell Distribution Width 13.6 % (11.5-14.5) Platelet Count 199 x10^3/uL (140-400) Sodium Level 143 mmol/L (136-145) Potassium Level 3.8 mmol/L (3.5-5.1) Chloride Level 108 mmol/L (98-107) Carbon Dioxide Level 27 mmol/L (21-32) Anion Gap 8 (6-14) Blood Urea Nitrogen 10 mg/dL (8-26) Creatinine 0.9 mg/dL (0.7-1.3) Estimated GFR (Cockcroft-Gault) 110.4 Glucose Level 90 mg/dL (70-99) Calcium Level 9.1 mg/dL (8.5-10.1) Triglycerides Level 91 mg/dL (0-150) Cholesterol Level 135 mg/dL (0-200) LDL Cholesterol, Calculated 77 mg/dL (0-100) VLDL Cholesterol, Calculated 18 mg/dL (0-40) Non-HDL Cholesterol Calculated 95 mg/dL (0-129) HDL Cholesterol 40 mg/dL (40-60) Cholesterol/HDL Ratio 3.4 Test 08/20/19 07:32 08/20/19 11:25 Glucose (Fingerstick) 90 mg/dL (70-99) 92 mg/dL (70-99) Medications Current Medications Sodium Chloride 1,000 ml @ 1,000 mls/hr 1X ONCE IV Last administered on 08/19/19at 16:29; Start 08/19/19 at 16:15; Stop 08/19/19 at 17:14; Status DC Aspirin (Children'S Aspirin) 324 mg 1X ONCE PO ; Start 08/19/19 at 16:15; Stop 08/19/19 at 16:14; Status DC Nitroglycerin (Nitrostat) 0.4 mg PRN Q5MIN STAT SL ; Start 08/19/19 at 16:07; Stop 08/19/19 at 16:14; Status DC Morphine Sulfate (Morphine Sulfate) 4 mg 1X ONCE IV Last administered on 08/19/19at 16:29; Start 08/19/19 at 16:30; Stop 08/19/19 at 16:31; Status DC Ondansetron HCl (Zofran) 4 mg PRN Q8HRS PRN IVP NAUSEA/VOMITING; Start 08/19/19 at 17:30; Stop 08/19/19 at 20:45; Status DC Heparin Sodium (Porcine) (Heparin Sodium) 4,000 unit 1X ONCE IV Last administered on 08/19/19at 18:50; Start 08/19/19 at 18:43; Stop 08/19/19 at 18:46; Status DC Heparin Sodium/ Dextrose 500 ml @ 20 mls/hr CONT PRN IV PER PROTOCOL Last administered on 08/19/19at 18:51; Start 08/19/19 at 18:45; Stop 08/20/19 at 15:59; Status DC Heparin Sodium (Porcine) (Heparin Sodium) 2,850 unit PRN Q6HRS PRN IV FOR UFH LEVEL LESS THAN 0.2; Start 08/19/19 at 18:43 Ondansetron HCl (Zofran) 4 mg PRN Q6HRS PRN IVP NAUSEA/VOMITING; Start 08/19/19 at 20:45 Aspirin (Children'S Aspirin) 81 mg DAILY PO Last administered on 08/20/19at 09:22; Start 08/20/19 at 09:00; Stop 08/20/19 at 17:14; Status DC Atorvastatin Calcium (Lipitor) 40 mg QHS PO Last administered on 08/19/19at 22:16; Start 08/19/19 at 21:00 Calcium Carbonate/ Glycine (Tums) 500 mg PRN BID PRN PO INDIGESTION; Start 08/19/19 at 20:45 Metoprolol Tartrate (Lopressor) 25 mg BID PO Last administered on 08/20/19at 09:22; Start 08/19/19 at 21:00 Nitroglycerin (Nitrostat) 0.4 mg PRN Q5MIN PRN SL chest pain; Start 08/19/19 at 20:45 Bismuth Subsalicylate (Pepto-Bismol) 262 mg DAILY PO ; Start 08/20/19 at 09:00 Morphine Sulfate (Morphine Sulfate) 4 mg PRN Q2HR PRN IV MODERATE TO SEVERE PAIN Last administered on 08/19/19at 22:18; Start 08/19/19 at 20:45 Pantoprazole Sodium (PROTONIX VIAL for IV PUSH) 40 mg 1X ONCE IVP Last administered on 08/19/19at 22:46; Start 08/19/19 at 21:00; Stop 08/19/19 at 21:0 1; Status DC Insulin Human Lispro (HumaLOG) 0-5 UNITS TIDWMEALS SQ ; Start 08/20/19 at 08:00; Stop 08/20/19 at 11:41; Status DC Dextrose (Dextrose 50%-Water Syringe) 12.5 gm PRN Q15MIN PRN IV SEE COMMENTS; Start 08/19/19 at 21:00; Stop 08/20/19 at 11:41; Status DC Nitroglycerin/ Dextrose 250 ml @ 1.5 mls/hr CONT PRN IV SEE I/O RECORD Last administered on 08/19/19at 23:26; Start 08/19/19 at 23:00 Acetaminophen (Tylenol) 650 mg PRN Q6HRS PRN PO PAIN; Start 08/20/19 at 00:15; Stop 08/20/19 at 17:15; Status DC Info (Anti-Coagulation Monitoring By Pharmacy) 1 each PRN DAILY PRN MC SEE COMMENTS Last administered on 08/20/19at 13:42; Start 08/20/19 at 13:30 Lidocaine HCl (Lidocaine 1% 20ml Vial) 20 ml STK-MED ONCE .ROUTE ; Start 08/20/19 at 14:07; Stop 08/20/19 at 14:07; Status DC Heparin Sodium/ Sodium Chloride 1,000 ml @ As Directed STK-MED ONCE .ROUTE ; Start 08/20/19 at 14:07; Stop 08/20/19 at 14:07; Status DC Iohexol (Omnipaque 300 Mg/ml) 100 ml STK-MED ONCE .ROUTE ; Start 08/20/19 at 14:19; Stop 08/20/19 at 14:20; Status DC Fentanyl Citrate (Fentanyl 2ml Vial) 100 mcg STK-MED ONCE .ROUTE ; Start 08/20/19 at 14:21; Stop 08/20/19 at 14:22; Status DC Midazolam HCl (Versed) 2 mg STK-MED ONCE .ROUTE ; Start 08/20/19 at 14:22; Stop 08/20/19 at 14:22; Status DC Midazolam HCl (Versed) 2 mg STK-MED ONCE .ROUTE ; Start 08/20/19 at 14:53; Stop 08/20/19 at 14:53; Status DC Heparin Sodium/ Dextrose 500 ml @ As Directed STK-MED ONCE IV ; Start 08/20/19 at 15:37; Stop 08/20/19 at 15:37; Status DC Heparin Sodium (Porcine) (Heparin Sodium) 10,000 unit STK-MED ONCE .ROUTE ; Start 08/20/19 at 15:37; Stop 08/20/19 at 15:38; Status DC Tirofiban/Sodium Chloride 250 ml @ As Directed STK-MED ONCE IV ; Start 08/20/19 at 15:48; Stop 08/20/19 at 15:48; Status DC Heparin Sodium/ Dextrose 500 ml @ 0 mls/hr CONT PRN IV PER PROTOCOL Last administered on 08/20/19at 16:04; Start 08/20/19 at 15:45 Heparin Sodium (Porcine) (Heparin Sodium) 3,050 unit PRN Q6HRS PRN IV FOR UFH LEVEL LESS THAN 0.2; Start 08/20/19 at 15:45 Heparin Sodium (Porcine) (Heparin Sodium) 3,000 unit 1X ONCE IV Last administered on 08/20/19at 16:03; Start 08/20/19 at 15:45; Stop 08/20/19 at 16:00; Status DC Tirofiban/Sodium Chloride 250 ml @ 0 mls/hr CONT PRN IV SEE COMMENTS Last administered on 08/20/19at 16:02; Start 08/20/19 at 15:45; Stop 08/21/19 at 09:44 Heparin Sodium/ Sodium Chloride (HEPARIN for ARTERIAL LINE FLUSH) 1,000 unit 1X ONCE IART Last administered on 08/20/19 16:04; Start 08/20/19 at 16:00; Stop 08/20/19 at 16:01; Status DC Heparin Sodium/ Sodium Chloride (HEPARIN for ARTERIAL LINE FLUSH) 1,000 unit 1X ONCE IART Last administered on 08/20/19 16:05; Start 08/20/19 at 16:00; Stop 08/20/19 at 16:01; Status DC Midazolam HCl (Versed) 2 mg 1X ONCE IV Last administered on 08/20/19 16:06; Start 08/20/19 at 16:00; Stop 08/20/19 at 16:01; Status DC Fentanyl Citrate (Fentanyl 2ml Vial) 100 mcg 1X ONCE IV Last administered on 08/20/19 16:06; Start 08/20/19 at 16:00; Stop 08/20/19 at 16:01; Status DC Iohexol (Omnipaque 300 Mg/ml) 100 ml 1X ONCE IART Last administered on 08/20/19at 16:05; Start 08/20/19 at 16:00; Stop 08/20/19 at 16:01; Status DC Lidocaine HCl (Lidocaine 1% 20ml Vial) 20 ml 1X ONCE INJ Last administered on 08/20/19at 16:05; Start 08/20/19 at 16:00; Stop 08/20/19 at 16:01; Status DC Sodium Chloride (Normal Saline Flush) 3 ml QSHIFT PRN IV AFTER MEDS AND BLOOD DRAWS; Start 08/20/19 at 17:15 Sodium Chloride 1,000 ml @ 60 mls/hr [id number] IV ; Start 08/20/19 at 17:08; Stop 08/20/19 at 23:07 Aspirin (Ecotrin) 81 mg DAILYWBKFT PO ; Start 08/21/19 at 08:00 Acetaminophen (Tylenol) 650 mg PRN Q6HRS PRN PO MILD PAIN 1-3; Start 08/20/19 at 17:15 Fentanyl Citrate (Fentanyl 2ml Vial) 50 mcg PRN Q1HR PRN IV Moderate or severe pain; Start 08/20/19 at 17:15 Nitroglycerin (Nitrostat) 0.4 mg PRN Q5MIN PRN SL CHEST PAIN; Start 08/20/19 at 17:15 Ticagrelor (Brilinta) 180 mg 1X ONCE PO ; Start 08/20/19 at 17:30; Stop 08/20/19 at 17:31; Status DC Ticagrelor (Brilinta) 90 mg BID PO ; Start 08/21/19 at 09:00 Active Scripts Active Reported Tums (Calcium Carbonate) 200 Mg Tab.chew 500 Mg PO PRN BID PRN NITROGLYCERIN SubLingual (Nitroglycerin) 0.4 Mg Tab.subl 1 Tab SL UD Metoprolol Tartrate 25 Mg Tablet 1 Tab PO BID Bismatrol (Bismuth Subsalicylate) 262 Mg Tab.chew 262 Mg PO DAILY Lipitor (Atorvastatin Calcium) 40 Mg Tablet 1 Tab PO QHS Aspirin 81 Mg Tab.chew 1 Tab PO DAILY Vitals/I & O Vital Sign - Last 24 Hours 08/19/19 08/19/19 08/19/19 08/19/19 19:00 19:30 19:50 20:15 Temp 98.8 98.8 Pulse 68 68 70 Resp 18 B/P (MAP) 151/78 (102) 150/84 (106) 160/85 (110) Pulse Ox 99 99 98 O2 Delivery Nasal Cannula Nasal Cannula Room Air Nasal Cannula O2 Flow Rate 1.0 1.0 1.0 08/19/19 08/19/19 08/19/19 08/19/19 22:17 22:18 22:53 23:53 Temp 98.4 98.4 Pulse 69 71 70 Resp 18 B/P (MAP) 160/85 129/79 (96) 124/75 (91) Pulse Ox 98 O2 Delivery Nasal Cannula Nasal Cannula O2 Flow Rate 1.0 2.0 2.0 08/20/19 08/20/19 08/20/19 08/20/19 00:23 01:25 03:00 03:23 Temp 98.3 98.3 Pulse 76 66 70 67 Resp 18 B/P (MAP) 127/78 (94) 136/80 (98) 119/72 (88) 125/71 (89) Pulse Ox 98 O2 Delivery Nasal Cannula Nasal Cannula Nasal Cannula Nasal Cannula O2 Flow Rate 2.0 2.0 2.0 08/20/19 08/20/19 08/20/19 08/20/19 04:48 05:23 06:23 07:24 Temp 98.3 98.3 Pulse 63 61 66 66 Resp 18 B/P (MAP) 112/68 (83) 98/55 (69) 108/67 (81) 108/67 (81) Pulse Ox 97 O2 Delivery Nasal Cannula Nasal Cannula Nasal Cannula Nasal Cannula O2 Flow Rate 2.0 2.0 2.0 2.0 08/20/19 08/20/19 08/20/19 08/20/19 08:00 09:22 10:26 16:06 Temp 98.3 98.3 Pulse 72 64 Resp 18 21 B/P (MAP) 114/76 114/76 (89) Pulse Ox 97 97 O2 Delivery Room Air Nasal Cannula Nasal Cannula O2 Flow Rate 2.0 2.0 08/20/19 08/20/19 08/20/19 08/20/19 16:07 16:15 16:30 16:45 Pulse 72 84 84 74 Resp 16 B/P (MAP) 118/80 (93) 119/82 (94) 132/89 (103) Pulse Ox 98 99 98 97 O2 Delivery Nasal Cannula Nasal Cannula Nasal Cannula Nasal Cannula O2 Flow Rate 2.0 2.0 2.0 2.0 08/20/19 08/20/19 08/20/19 17:00 17:30 18:00 Pulse 73 76 91 B/P (MAP) 135/84 (101) 123/75 (91) 147/64 (91) Pulse Ox 99 97 97 O2 Delivery Nasal Cannula Nasal Cannula Nasal Cannula O2 Flow Rate 2.0 2.0 2.0 Intake and Output 08/19/19 08/19/19 08/20/19 15:00 23:00 07:00 Intake Total 540 ml 550 ml Output Total 625 ml Balance -85 ml 550 ml YASEMIN ALBERTO MD Aug 20, 2019 18:12
[2019-08-20] MEDS: ATORVASTATIN CALCIUM 40 MG TABLET. PO SCH (21:03)
[2019-08-20 23:12] LABS: HEMOGLOBIN A1C 5.9 % (4.8-5.6)
[2019-08-21] VITALS (24 sets, daily range): BP systolic 100–150; BP diastolic 54–86
[2019-08-21] MEDS: MORPHINE SULFATE 4 MG/ML VIAL. IV PRN (00:04)
[2019-08-21 01:38] LABS: BASO % 1 % (0-3); EOS # 0.1 x10^3/uL (0.0-0.7); EOS % 2 % (0-3); HEMATOCRIT 43.1 % (39.0-53.0); HEMOGLOBIN 14.4 g/dL (13.0-17.5); LYMPH # 2.6 x10^3/uL (1.0-4.8); LYMPH % 41 % (24-48); MEAN CORPUSCULAR HEMOGLOBIN 30 pg (25-35); MEAN CORPUSCULAR HGB CONC 33 g/dL (31-37); MEAN CORPUSCULAR VOLUME 91 fL (79-100); MONO # 0.5 x10^3/uL (0.0-1.1); MONO % 8 % (0-9); NEUT % 48 % (31-73); PLATELET COUNT 185 x10^3/uL (140-400); RED BLOOD COUNT 4.75 x10^6/uL (4.30-5.70); RED CELL DISTRIBUTION WIDTH 13.8 % (11.5-14.5); WHITE BLOOD COUNT 6.2 x10^3/uL (4.0-11.0)
[2019-08-21 01:49] LABS: CALCIUM 8.8 mg/dL (8.5-10.1); GFR 97.8; POTASSIUM 3.8 mmol/L (3.5-5.1)
[2019-08-21] MEDS: ASPIRIN ENTERIC COATED 81 MG TABLET.DR. PO SCH (08:06)
[2019-08-21] MEDS: BISMUTH SUBSALICYLATE 262 MG/15 ML ORAL.SUSP 236ML BOTTLE. PO SCH (08:07)
[2019-08-21] MEDS: METOPROLOL TART IMMED RELEASE 25 MG TABLET. PO SCH ×2 (08:07→20:25)
[2019-08-21] MEDS: TICAGRELOR 90 MG TABLET. PO SCH ×2 (08:07→20:25)
[2019-08-21] MEDS: ANTI-COAG MONITOR BY PHARMACY. MC PRN (08:33)
[2019-08-21] MEDS: HEPARIN 25,000UTS/500ML PREMIX 500 ML IV PRN (09:36)
[2019-08-21] MEDS: TIROFIBAN 12.5MG -0.9% NS 250 ML IV PRN ×2 (09:37→19:05)
[2019-08-21] MEDS ORDERED: POTASSIUM CHLORIDE 20 MEQ TABLET.ER. PO ONE (09:45)
--- NOTE | 2019-08-21 14:24 | PDOC ---
PROGRESS NOTES Chief Complaint Chief Complaint Chest pain - NSTEMI, heparin GTT, dm2 HTN - will cont BP meds, monitor HLD - cont statin, check fasting lipids CAD - with 2 prior stents obese, BMI 32 History of Present Illness History of Present Illness cath yesterday, unable to stent RCA, plan to re-try on friday cont Aggrastat. pt pain is better, feels well pain better could not sleep, would like an ambien tonight, guards assist with history, pt at [facility] [place] Vitals Vitals Vital Signs Date Time Temp Pulse Resp B/P (MAP) Pulse Ox O2 Delivery O2 Flow Rate FiO2 08/21/19 12:00 Room Air 08/21/19 11:00 86 27 142/69 (93) 92 08/21/19 08:00 98.6 98.6 08/21/19 05:00 2.0 Physical Exam General: Alert, Oriented X3, Cooperative, No acute distress Heart: Regular rate (SR), Normal S1, Normal S2, No murmurs Abdomen: Soft, No tenderness Extremities: No cyanosis, No edema Skin: No breakdown Labs LABS Laboratory Tests Test 08/20/19 19:00 08/21/19 01:25 08/21/19 08:20 Heparin Anti-Xa Act, Unfractionated 0.63 IU/mL (0.30-0.70) 0.58 IU/mL (0.30-0.70) 0.40 IU/mL (0.30-0.70) White Blood Count 6.2 x10^3/uL (4.0-11.0) Red Blood Count 4.75 x10^6/uL (4.30-5.70) Hemoglobin 14.4 g/dL (13.0-17.5) Hematocrit 43.1 % (39.0-53.0) Mean Corpuscular Volume 91 fL (79-100) Mean Corpuscular Hemoglobin 30 pg (25-35) Mean Corpuscular Hemoglobin Concent 33 g/dL (31-37) Red Cell Distribution Width 13.8 % (11.5-14.5) Platelet Count 185 x10^3/uL (140-400) Neutrophils (%) (Auto) 48 % (31-73) Lymphocytes (%) (Auto) 41 % (24-48) Monocytes (%) (Auto) 8 % (0-9) Eosinophils (%) (Auto) 2 % (0-3) Basophils (%) (Auto) 1 % (0-3) Neutrophils # (Auto) 3.0 x10^3/uL (1.8-7.7) Lymphocytes # (Auto) 2.6 x10^3/uL (1.0-4.8) Monocytes # (Auto) 0.5 x10^3/uL (0.0-1.1) Eosinophils # (Auto) 0.1 x10^3/uL (0.0-0.7) Basophils # (Auto) 0.0 x10^3/uL (0.0-0.2) Sodium Level 141 mmol/L (136-145) Potassium Level 3.8 mmol/L (3.5-5.1) Chloride Level 106 mmol/L (98-107) Carbon Dioxide Level 28 mmol/L (21-32) Anion Gap 7 (6-14) Blood Urea Nitrogen 10 mg/dL (8-26) Creatinine 1.0 mg/dL (0.7-1.3) Estimated GFR (Cockcroft-Gault) 97.8 Glucose Level 95 mg/dL (70-99) Calcium Level 8.8 mg/dL (8.5-10.1) Magnesium Level 2.0 mg/dL (1.8-2.4) Assessment and Plan Assessmemt and Plan Problems Medical Problems: (1) Chest pain Status: Acute Comment Review of Relevant I have reviewed the following items hernan (where applicable) has been applied. Labs Laboratory Tests Test 08/19/19 15:49 08/19/19 18:12 08/19/19 20:40 08/20/19 00:00 White Blood Count 6.6 x10^3/uL (4.0-11.0) Red Blood Count 4.96 x10^6/uL (4.30-5.70) Hemoglobin 15.3 g/dL (13.0-17.5) Hematocrit 45.4 % (39.0-53.0) Mean Corpuscular Volume 92 fL (79-100) Mean Corpuscular Hemoglobin 31 pg (25-35) Mean Corpuscular Hemoglobin Concent 34 g/dL (31-37) Red Cell Distribution Width 13.5 % (11.5-14.5) Platelet Count 196 x10^3/uL (140-400) Neutrophils (%) (Auto) 70 % (31-73) Lymphocytes (%) (Auto) 22 % (24-48) Monocytes (%) (Auto) 6 % (0-9) Eosinophils (%) (Auto) 1 % (0-3) Basophils (%) (Auto) 0 % (0-3) Neutrophils # (Auto) 4.7 x10^3/uL (1.8-7.7) Lymphocytes # (Auto) 1.5 x10^3/uL (1.0-4.8) Monocytes # (Auto) 0.4 x10^3/uL (0.0-1.1) Eosinophils # (Auto) 0.1 x10^3/uL (0.0-0.7) Basophils # (Auto) 0.0 x10^3/uL (0.0-0.2) Prothrombin Time 12.6 SEC (11.7-14.0) Prothromb Time International Ratio 1.0 (0.8-1.1) Activated Partial Thromboplast Time 30 SEC (24-38) Sodium Level 142 mmol/L (136-145) Potassium Level 4.6 mmol/L (3.5-5.1) Chloride Level 106 mmol/L (98-107) Carbon Dioxide Level 31 mmol/L (21-32) Anion Gap 5 (6-14) Blood Urea Nitrogen 11 mg/dL (8-26) Creatinine 1.0 mg/dL (0.7-1.3) Estimated GFR (Cockcroft-Gault) 97.8 BUN/Creatinine Ratio 11 (6-20) Glucose Level 120 mg/dL (70-99) Hemoglobin A1c 5.9 % (4.8-5.6) Calcium Level 9.6 mg/dL (8.5-10.1) Total Bilirubin 0.3 mg/dL (0.2-1.0) Aspartate Amino Transf (AST/SGOT) 31 U/L (15-37) Alanine Aminotransferase (ALT/SGPT) 47 U/L (16-63) Alkaline Phosphatase 99 U/L (46-116) Creatine Kinase 296 U/L (39-308) 301 U/L (39-308) 341 U/L (39-308) Creatine Kinase MB (Mass) 1.2 ng/mL (0.0-3.6) 2.2 ng/mL (0.0-3.6) 12.3 ng/mL (0.0-3.6) Creatine Kinase MB Relative Index 0.4 % (0-4) 0.7 % (0-4) 3.6 % (0-4) Troponin I Quantitative 0.039 ng/mL (0.000-0.055) 0.093 ng/mL (0.000-0.055) 0.733 ng/mL (0.000-0.055) CW-Bim-R-Type Natriuretic Peptide 8 pg/mL (0-124) Total Protein 7.3 g/dL (6.4-8.2) Albumin 4.2 g/dL (3.4-5.0) Albumin/Globulin Ratio 1.4 (1.0-1.7) Thyroid Stimulating Hormone (TSH) 1.734 uIU/mL (0.358-3.74) Heparin Anti-Xa Act, Unfractionated 0.48 IU/mL (0.30-0.70) Test 08/20/19 06:25 08/20/19 07:32 08/20/19 11:25 08/20/19 19:00 White Blood Count 7.6 x10^3/uL (4.0-11.0) Red Blood Count 4.83 x10^6/uL (4.30-5.70) Hemoglobin 14.7 g/dL (13.0-17.5) Hematocrit 44.0 % (39.0-53.0) Mean Corpuscular Volume 91 fL (79-100) Mean Corpuscular Hemoglobin 30 pg (25-35) Mean Corpuscular Hemoglobin Concent 33 g/dL (31-37) Red Cell Distribution Width 13.6 % (11.5-14.5) Platelet Count 199 x10^3/uL (140-400) Heparin Anti-Xa Act, Unfractionated 0.54 IU/mL (0.30-0.70) 0.63 IU/mL (0.30-0.70) Sodium Level 143 mmol/L (136-145) Potassium Level 3.8 mmol/L (3.5-5.1) Chloride Level 108 mmol/L (98-107) Carbon Dioxide Level 27 mmol/L (21-32) Anion Gap 8 (6-14) Blood Urea Nitrogen 10 mg/dL (8-26) Creatinine 0.9 mg/dL (0.7-1.3) Estimated GFR (Cockcroft-Gault) 110.4 Glucose Level 90 mg/dL (70-99) Calcium Level 9.1 mg/dL (8.5-10.1) Triglycerides Level 91 mg/dL (0-150) Cholesterol Level 135 mg/dL (0-200) LDL Cholesterol, Calculated 77 mg/dL (0-100) VLDL Cholesterol, Calculated 18 mg/dL (0-40) Non-HDL Cholesterol Calculated 95 mg/dL (0-129) HDL Cholesterol 40 mg/dL (40-60) Cholesterol/HDL Ratio 3.4 Glucose (Fingerstick) 90 mg/dL (70-99) 92 mg/dL (70-99) Test 08/21/19 01:25 08/21/19 08:20 White Blood Count 6.2 x10^3/uL (4.0-11.0) Red Blood Count 4.75 x10^6/uL (4.30-5.70) Hemoglobin 14.4 g/dL (13.0-17.5) Hematocrit 43.1 % (39.0-53.0) Mean Corpuscular Volume 91 fL (79-100) Mean Corpuscular Hemoglobin 30 pg (25-35) Mean Corpuscular Hemoglobin Concent 33 g/dL (31-37) Red Cell Distribution Width 13.8 % (11.5-14.5) Platelet Count 185 x10^3/uL (140-400) Neutrophils (%) (Auto) 48 % (31-73) Lymphocytes (%) (Auto) 41 % (24-48) Monocytes (%) (Auto) 8 % (0-9) Eosinophils (%) (Auto) 2 % (0-3) Basophils (%) (Auto) 1 % (0-3) Neutrophils # (Auto) 3.0 x10^3/uL (1.8-7.7) Lymphocytes # (Auto) 2.6 x10^3/uL (1.0-4.8) Monocytes # (Auto) 0.5 x10^3/uL (0.0-1.1) Eosinophils # (Auto) 0.1 x10^3/uL (0.0-0.7) Basophils # (Auto) 0.0 x10^3/uL (0.0-0.2) Heparin Anti-Xa Act, Unfractionated 0.58 IU/mL (0.30-0.70) 0.40 IU/mL (0.30-0.70) Sodium Level 141 mmol/L (136-145) Potassium Level 3.8 mmol/L (3.5-5.1) Chloride Level 106 mmol/L (98-107) Carbon Dioxide Level 28 mmol/L (21-32) Anion Gap 7 (6-14) Blood Urea Nitrogen 10 mg/dL (8-26) Creatinine 1.0 mg/dL (0.7-1.3) Estimated GFR (Cockcroft-Gault) 97.8 Glucose Level 95 mg/dL (70-99) Calcium Level 8.8 mg/dL (8.5-10.1) Magnesium Level 2.0 mg/dL (1.8-2.4) Laboratory Tests Test 08/20/19 19:00 08/21/19 01:25 08/21/19 08:20 Heparin Anti-Xa Act, Unfractionated 0.63 IU/mL (0.30-0.70) 0.58 IU/mL (0.30-0.70) 0.40 IU/mL (0.30-0.70) White Blood Count 6.2 x10^3/uL (4.0-11.0) Red Blood Count 4.75 x10^6/uL (4.30-5.70) Hemoglobin 14.4 g/dL (13.0-17.5) Hematocrit 43.1 % (39.0-53.0) Mean Corpuscular Volume 91 fL (79-100) Mean Corpuscular Hemoglobin 30 pg (25-35) Mean Corpuscular Hemoglobin Concent 33 g/dL (31-37) Red Cell Distribution Width 13.8 % (11.5-14.5) Platelet Count 185 x10^3/uL (140-400) Neutrophils (%) (Auto) 48 % (31-73) Lymphocytes (%) (Auto) 41 % (24-48) Monocytes (%) (Auto) 8 % (0-9) Eosinophils (%) (Auto) 2 % (0-3) Basophils (%) (Auto) 1 % (0-3) Neutrophils # (Auto) 3.0 x10^3/uL (1.8-7.7) Lymphocytes # (Auto) 2.6 x10^3/uL (1.0-4.8) Monocytes # (Auto) 0.5 x10^3/uL (0.0-1.1) Eosinophils # (Auto) 0.1 x10^3/uL (0.0-0.7) Basophils # (Auto) 0.0 x10^3/uL (0.0-0.2) Sodium Level 141 mmol/L (136-145) Potassium Level 3.8 mmol/L (3.5-5.1) Chloride Level 106 mmol/L (98-107) Carbon Dioxide Level 28 mmol/L (21-32) Anion Gap 7 (6-14) Blood Urea Nitrogen 10 mg/dL (8-26) Creatinine 1.0 mg/dL (0.7-1.3) Estimated GFR (Cockcroft-Gault) 97.8 Glucose Level 95 mg/dL (70-99) Calcium Level 8.8 mg/dL (8.5-10.1) Magnesium Level 2.0 mg/dL (1.8-2.4) Medications Current Medications Sodium Chloride 1,000 ml @ 1,000 mls/hr 1X ONCE IV Last administered on 08/19/19at 16:29; Start 08/19/19 at 16:15; Stop 08/19/19 at 17:14; Status DC Aspirin (Children'S Aspirin) 324 mg 1X ONCE PO ; Start 08/19/19 at 16:15; Stop 08/19/19 at 16:14; Status DC Nitroglycerin (Nitrostat) 0.4 mg PRN Q5MIN STAT SL ; Start 08/19/19 at 16:07; Stop 08/19/19 at 16:14; Status DC Morphine Sulfate (Morphine Sulfate) 4 mg 1X ONCE IV Last administered on 08/19/19at 16:29; Start 08/19/19 at 16:30; Stop 08/19/19 at 16:31; Status DC Ondansetron HCl (Zofran) 4 mg PRN Q8HRS PRN IVP NAUSEA/VOMITING; Start 08/19/19 at 17:30; Stop 08/19/19 at 20:45; Status DC Heparin Sodium (Porcine) (Heparin Sodium) 4,000 unit 1X ONCE IV Last administered on 08/19/19at 18:50; Start 08/19/19 at 18:43; Stop 08/19/19 at 18:46; Status DC Heparin Sodium/ Dextrose 500 ml @ 20 mls/hr CONT PRN IV PER PROTOCOL Last administered on 08/19/19at 18:51; Start 08/19/19 at 18:45; Stop 08/20/19 at 15:59; Status DC Heparin Sodium (Porcine) (Heparin Sodium) 2,850 unit PRN Q6HRS PRN IV FOR UFH LEVEL LESS THAN 0.2; Start 08/19/19 at 18:43 Ondansetron HCl (Zofran) 4 mg PRN Q6HRS PRN IVP NAUSEA/VOMITING; Start 08/19/19 at 20:45 Aspirin (Children'S Aspirin) 81 mg DAILY PO Last administered on 08/20/19at 09:22; Start 08/20/19 at 09:00; Stop 08/20/19 at 17:14; Status DC Atorvastatin Calcium (Lipitor) 40 mg QHS PO Last administered on 08/20/19at 21:03; Start 08/19/19 at 21:00 Calcium Carbonate/ Glycine (Tums) 500 mg PRN BID PRN PO INDIGESTION; Start 08/19/19 at 20:45 Metoprolol Tartrate (Lopressor) 25 mg BID PO Last administered on 08/21/19at 08:07; Start 08/19/19 at 21:00 Nitroglycerin (Nitrostat) 0.4 mg PRN Q5MIN PRN SL chest pain; Start 08/19/19 at 20:45; Stop 08/21/19 at 08:39; Status DC Bismuth Subsalicylate (Pepto-Bismol) 262 mg DAILY PO ; Start 08/20/19 at 09:00 Morphine Sulfate (Morphine Sulfate) 4 mg PRN Q2HR PRN IV MODERATE PAIN Last administered on 08/21/19at 00:04; Start 08/19/19 at 20:45 Pantoprazole Sodium (PROTONIX VIAL for IV PUSH) 40 mg 1X ONCE IVP Last administered on 08/19/19at 22:46; Start 08/19/19 at 21:00; Stop 08/19/19 at 21:01; Status DC Insulin Human Lispro (HumaLOG) 0-5 UNITS TIDWMEALS SQ ; Start 08/20/19 at 08:00; Stop 08/20/19 at 11:41; Status DC Dextrose (Dextrose 50%-Water Syringe) 12.5 gm PRN Q15MIN PRN IV SEE COMMENTS; Start 08/19/19 at 21:00; Stop 08/20/19 at 11:41; Status DC Nitroglycerin/ Dextrose 250 ml @ 1.5 mls/hr CONT PRN IV SEE I/O RECORD Last administered on 08/19/19at 23:26; Start 08/19/19 at 23:00 Acetaminophen (Tylenol) 650 mg PRN Q6HRS PRN PO PAIN; Start 08/20/19 at 00:15; Stop 08/20/19 at 17:15; Status DC Info (Anti-Coagulation Monitoring By Pharmacy) 1 each PRN DAILY PRN MC SEE COMMENTS Last administered on 08/21/19at 08:33; Start 08/20/19 at 13:30 Lidocaine HCl (Lidocaine 1% 20ml Vial) 20 ml STK-MED ONCE .ROUTE ; Start 08/20/19 at 14:07; Stop 08/20/19 at 14:07; Status DC Heparin Sodium/ Sodium Chloride 1,000 ml @ As Directed STK-MED ONCE .ROUTE ; Start 08/20/19 at 14:07; Stop 08/20/19 at 14:07; Status DC Iohexol (Omnipaque 300 Mg/ml) 100 ml STK-MED ONCE .ROUTE ; Start 08/20/19 at 14:19; Stop 08/20/19 at 14:20; Status DC Fentanyl Citrate (Fentanyl 2ml Vial) 100 mcg STK-MED ONCE .ROUTE ; Start 08/20/19 at 14:21; Stop 08/20/19 at 14:22; Status DC Midazolam HCl (Versed) 2 mg STK-MED ONCE .ROUTE ; Start 08/20/19 at 14:22; Stop 08/20/19 at 14:22; Status DC Midazolam HCl (Versed) 2 mg STK-MED ONCE .ROUTE ; Start 08/20/19 at 14:53; Stop 08/20/19 at 14:53; Status DC Heparin Sodium/ Dextrose 500 ml @ As Directed STK-MED ONCE IV ; Start 08/20/19 at 15:37; Stop 08/20/19 at 15:37; Status DC Heparin Sodium (Porcine) (Heparin Sodium) 10,000 unit STK-MED ONCE .ROUTE ; Start 08/20/19 at 15:37; Stop 08/20/19 at 15:38; Status DC Tirofiban/Sodium Chloride 250 ml @ As Directed STK-MED ONCE IV ; Start 08/20/19 at 15:48; Stop 08/20/19 at 15:48; Status DC Heparin Sodium/ Dextrose 500 ml @ 0 mls/hr CONT PRN IV PER PROTOCOL Last administered on 08/21/19at 09:36; Start 08/20/19 at 15:45 Heparin Sodium (Porcine) (Heparin Sodium) 3,050 unit PRN Q6HRS PRN IV FOR UFH LEVEL LESS THAN 0.2; Start 08/20/19 at 15:45 Heparin Sodium (Porcine) (Heparin Sodium) 3,000 unit 1X ONCE IV Last administered on 08/20/19at 16:03; Start 08/20/19 at 15:45; Stop 08/20/19 at 16:00; Status DC Tirofiban/Sodium Chloride 250 ml @ 0 mls/hr CONT PRN IV SEE COMMENTS Last administered on 08/21/19at 09:37; Start 08/20/19 at 15:45; Stop 08/21/19 at 09:44; Status DC Heparin Sodium/ Sodium Chloride (HEPARIN for ARTERIAL LINE FLUSH) 1,000 unit 1X ONCE IART Last administered on 08/20/19at 16:04; Start 08/20/19 at 16:00; Stop 08/20/19 at 16:01; Status DC Heparin Sodium/ Sodium Chloride (HEPARIN for ARTERIAL LINE FLUSH) 1,000 unit 1X ONCE IART Last administered on 08/20/19at 16:05; Start 08/20/19 at 16:00; Stop 08/20/19 at 16:01; Status DC Midazolam HCl (Versed) 2 mg 1X ONCE IV Last administered on 08/20/19at 16:06; Start 08/20/19 at 16:00; Stop 08/20/19 at 16:01; Status DC Fentanyl Citrate (Fentanyl 2ml Vial) 100 mcg 1X ONCE IV Last administered on 08/20/19 16:06; Start 08/20/19 at 16:00; Stop 08/20/19 at 16:01; Status DC Iohexol (Omnipaque 300 Mg/ml) 100 ml 1X ONCE IART Last administered on 08/20/19at 16:05; Start 08/20/19 at 16:00; Stop 08/20/19 at 16:01; Status DC Lidocaine HCl (Lidocaine 1% 20ml Vial) 20 ml 1X ONCE INJ Last administered on 08/20/19at 16:05; Start 08/20/19 at 16:00; Stop 08/20/19 at 16:01; Status DC Sodium Chloride (Normal Saline Flush) 3 ml QSHIFT PRN IV AFTER MEDS AND BLOOD DRAWS; Start 08/20/19 at 17:15 Sodium Chloride 1,000 ml @ 60 mls/hr [id number] IV Last administered on 08/20/19at 19:34; Start 08/20/19 at 17:08; Stop 08/20/19 at 23:07; Status DC Aspirin (Ecotrin) 81 mg [id number] PO Last administered on 08/21/19at 08:06; Start 08/21/19 at 08:00 Acetaminophen (Tylenol) 650 mg PRN Q6HRS PRN PO MILD PAIN 1-3; Start 08/20/19 at 17:15 Fentanyl Citrate (Fentanyl 2ml Vial) 50 mcg PRN Q1HR PRN IV Severe pain; Start 08/20/19 at 17:15 Nitroglycerin (Nitrostat) 0.4 mg PRN Q5MIN PRN SL CHEST PAIN; Start 08/20/19 at 17:15 Ticagrelor (Brilinta) 180 mg 1X ONCE PO Last administered on 08/20/19at 18:45; Start 08/20/19 at 17:30; Stop 08/20/19 at 17:31; Status DC Ticagrelor (Brilinta) 90 mg BID PO Last administered on 08/21/19at 08:07; Start 08/21/19 at 09:00 Potassium Chloride (Klor-Con) 20 meq 1X ONCE PO Last administered on 08/21/19at 10:33; Start 08/21/19 at 09:45; Stop 08/21/19 at 09:46; Status DC Zolpidem Tartrate (Ambien) 5 mg HS PO ; Start 08/21/19 at 21:00 Active Scripts Active Reported Tums (Calcium Carbonate) 200 Mg Tab.chew 500 Mg PO PRN BID PRN NITROGLYCERIN SubLingual (Nitroglycerin) 0.4 Mg Tab.subl 1 Tab SL UD Metoprolol Tartrate 25 Mg Tablet 1 Tab PO BID Bismatrol (Bismuth Subsalicylate) 262 Mg Tab.chew 262 Mg PO DAILY Lipitor (Atorvastatin Calcium) 40 Mg Tablet 1 Tab PO QHS Aspirin 81 Mg Tab.chew 1 Tab PO DAILY Vitals/I & O Vital Sign - Last 24 Hours 08/20/19 08/20/19 08/20/19 08/20/19 16:06 16:07 16:15 16:30 Pulse 72 84 84 Resp 21 16 B/P (MAP) 118/80 (93) 119/82 (94) Pulse Ox 97 98 99 98 O2 Delivery Nasal Cannula Nasal Cannula Nasal Cannula Nasal Cannula O2 Flow Rate 2.0 2.0 2.0 2.0 08/20/19 08/20/19 08/20/19 08/20/19 16:45 17:00 17:30 18:00 Pulse 74 73 76 91 B/P (MAP) 132/89 (103) 135/84 (101) 123/75 (91) 147/64 (91) Pulse Ox 97 99 97 97 O2 Delivery Nasal Cannula Nasal Cannula Nasal Cannula Nasal Cannula O2 Flow Rate 2.0 2.0 2.0 2.0 08/20/19 08/20/19 08/20/19 08/20/19 19:00 19:20 20:00 20:00 Temp 99.1 99.1 Pulse 80 84 Resp 16 B/P (MAP) 130/74 (92) 119/74 (89) Pulse Ox 96 96 O2 Delivery Nasal Cannula Nasal Cannula Room Air O2 Flow Rate 2.0 2.0 2.0 08/20/19 08/20/19 08/20/19 08/20/19 21:00 21:03 22:00 23:00 Pulse 76 75 76 78 Resp 18 18 18 B/P (MAP) 123/68 (86) 123/68 137/74 (95) 133/75 (94) Pulse Ox 97 97 98 O2 Delivery Nasal Cannula Nasal Cannula Nasal Cannula O2 Flow Rate 2.0 2.0 2.0 08/21/19 08/21/19 08/21/19 08/21/19 00:00 00:00 00:04 00:34 Temp 98.7 98.7 Pulse 68 Resp 18 20 16 B/P (MAP) 131/75 (93) Pulse Ox 97 O2 Delivery Room Air Nasal Cannula O2 Flow Rate 2.0 2.0 08/21/19 08/21/19 08/21/19 08/21/19 01:00 02:00 03:00 04:00 Temp 98.4 98.4 Pulse 84 68 72 70 Resp 16 16 16 16 B/P (MAP) 123/73 (90) 105/57 (73) 117/72 (87) 140/71 (94) Pulse Ox 96 95 93 95 O2 Delivery Nasal Cannula Nasal Cannula Nasal Cannula Nasal Cannula O2 Flow Rate 2.0 2.0 2.0 2.0 08/21/19 08/21/19 08/21/19 08/21/19 04:00 05:00 06:00 07:00 Pulse 70 72 66 Resp 18 18 8 B/P (MAP) 125/79 (94) 100/54 (69) 140/73 (95) Pulse Ox 96 94 94 O2 Delivery Room Air Nasal Cannula Room Air Room Air O2 Flow Rate 2.0 2.0 08/21/19 08/21/19 08/21/19 08/21/19 08:00 08:00 08:07 09:00 Temp 98.6 98.6 Pulse 76 70 Resp 14 8 B/P (MAP) 140/76 (97) 140/73 122/61 (81) Pulse Ox 97 92 O2 Delivery Room Air Room Air Room Air 08/21/19 08/21/19 08/21/19 10:00 11:00 12:00 Pulse 70 86 Resp 11 27 B/P (MAP) 126/68 (87) 142/69 (93) Pulse Ox 92 92 O2 Delivery Room Air Room Air Room Air Intake and Output 08/20/19 08/20/19 08/21/19 14:59 22:59 06:59 Intake Total 0 ml 1305 ml 865 ml Output Total 800 ml Balance 0 ml 1305 ml 65 ml YASEMIN ALBERTO MD Aug 21, 2019 14:24
--- NOTE | 2019-08-21 14:28 | PDOC ---
PROGRESS NOTES Subjective Subjective Patient seen and examined Objective Objective Vital Signs Date Time Temp Pulse Resp B/P (MAP) Pulse Ox O2 Delivery O2 Flow Rate FiO2 08/21/19 12:00 Room Air 08/21/19 11:00 86 27 142/69 (93) 92 08/21/19 08:00 98.6 98.6 08/21/19 05:00 2.0 Intake and Output 08/21/19 06:59 Intake Total 2170 ml Output Total 800 ml Balance 1370 ml Intake Oral 840 ml IV Total 1330 ml Output Urine Total 800 ml Physical Exam Abdomen: Normal bowel sounds Heart: Regular rate General: No acute distress HEENT: Atraumatic Lungs: Clear to auscultation Assessment Assessment Problems Medical Problems: (1) Chest pain Status: Acute 1. Non-ST elevated myocardial infarction. Peak troponin of 0.7. Catheter yesterday with severe RCA lesion with heavy thrombus burden. Deferred intervention until Friday. Continue treatment with heparin, 2B3A inhibitor and platelet inhibitors. Remains pain-free. 2. Hypertension. Continue IV nitroglycerin. 3. Hyperlipidemia. Continue statin. Comment Review of Relevant I have reviewed the following items hernan (where applicable) has been applied. Labs Laboratory Tests Test 08/19/19 15:49 08/19/19 18:12 08/19/19 20:40 08/20/19 00:00 White Blood Count 6.6 x10^3/uL (4.0-11.0) Red Blood Count 4.96 x10^6/uL (4.30-5.70) Hemoglobin 15.3 g/dL (13.0-17.5) Hematocrit 45.4 % (39.0-53.0) Mean Corpuscular Volume 92 fL (79-100) Mean Corpuscular Hemoglobin 31 pg (25-35) Mean Corpuscular Hemoglobin Concent 34 g/dL (31-37) Red Cell Distribution Width 13.5 % (11.5-14.5) Platelet Count 196 x10^3/uL (140-400) Neutrophils (%) (Auto) 70 % (31-73) Lymphocytes (%) (Auto) 22 % (24-48) Monocytes (%) (Auto) 6 % (0-9) Eosinophils (%) (Auto) 1 % (0-3) Basophils (%) (Auto) 0 % (0-3) Neutrophils # (Auto) 4.7 x10^3/uL (1.8-7.7) Lymphocytes # (Auto) 1.5 x10^3/uL (1.0-4.8) Monocytes # (Auto) 0.4 x10^3/uL (0.0-1.1) Eosinophils # (Auto) 0.1 x10^3/uL (0.0-0.7) Basophils # (Auto) 0.0 x10^3/uL (0.0-0.2) Prothrombin Time 12.6 SEC (11.7-14.0) Prothromb Time International Ratio 1.0 (0.8-1.1) Activated Partial Thromboplast Time 30 SEC (24-38) Sodium Level 142 mmol/L (136-145) Potassium Level 4.6 mmol/L (3.5-5.1) Chloride Level 106 mmol/L (98-107) Carbon Dioxide Level 31 mmol/L (21-32) Anion Gap 5 (6-14) Blood Urea Nitrogen 11 mg/dL (8-26) Creatinine 1.0 mg/dL (0.7-1.3) Estimated GFR (Cockcroft-Gault) 97.8 BUN/Creatinine Ratio 11 (6-20) Glucose Level 120 mg/dL (70-99) Hemoglobin A1c 5.9 % (4.8-5.6) Calcium Level 9.6 mg/dL (8.5-10.1) Total Bilirubin 0.3 mg/dL (0.2-1.0) Aspartate Amino Transf (AST/SGOT) 31 U/L (15-37) Alanine Aminotransferase (ALT/SGPT) 47 U/L (16-63) Alkaline Phosphatase 99 U/L (46-116) Creatine Kinase 296 U/L (39-308) 301 U/L (39-308) 341 U/L (39-308) Creatine Kinase MB (Mass) 1.2 ng/mL (0.0-3.6) 2.2 ng/mL (0.0-3.6) 12.3 ng/mL (0.0-3.6) Creatine Kinase MB Relative Index 0.4 % (0-4) 0.7 % (0-4) 3.6 % (0-4) Troponin I Quantitative 0.039 ng/mL (0.000-0.055) 0.093 ng/mL (0.000-0.055) 0.733 ng/mL (0.000-0.055) HO-Dzm-R-Type Natriuretic Peptide 8 pg/mL (0-124) Total Protein 7.3 g/dL (6.4-8.2) Albumin 4.2 g/dL (3.4-5.0) Albumin/Globulin Ratio 1.4 (1.0-1.7) Thyroid Stimulating Hormone (TSH) 1.734 uIU/mL (0.358-3.74) Heparin Anti-Xa Act, Unfractionated 0.48 IU/mL (0.30-0.70) Test 08/20/19 06:25 08/20/19 07:32 08/20/19 11:25 08/20/19 19:00 White Blood Count 7.6 x10^3/uL (4.0-11.0) Red Blood Count 4.83 x10^6/uL (4.30-5.70) Hemoglobin 14.7 g/dL (13.0-17.5) Hematocrit 44.0 % (39.0-53.0) Mean Corpuscular Volume 91 fL (79-100) Mean Corpuscular Hemoglobin 30 pg (25-35) Mean Corpuscular Hemoglobin Concent 33 g/dL (31-37) Red Cell Distribution Width 13.6 % (11.5-14.5) Platelet Count 199 x10^3/uL (140-400) Heparin Anti-Xa Act, Unfractionated 0.54 IU/mL (0.30-0.70) 0.63 IU/mL (0.30-0.70) Sodium Level 143 mmol/L (136-145) Potassium Level 3.8 mmol/L (3.5-5.1) Chloride Level 108 mmol/L (98-107) Carbon Dioxide Level 27 mmol/L (21-32) Anion Gap 8 (6-14) Blood Urea Nitrogen 10 mg/dL (8-26) Creatinine 0.9 mg/dL (0.7-1.3) Estimated GFR (Cockcroft-Gault) 110.4 Glucose Level 90 mg/dL (70-99) Calcium Level 9.1 mg/dL (8.5-10.1) Triglycerides Level 91 mg/dL (0-150) Cholesterol Level 135 mg/dL (0-200) LDL Cholesterol, Calculated 77 mg/dL (0-100) VLDL Cholesterol, Calculated 18 mg/dL (0-40) Non-HDL Cholesterol Calculated 95 mg/dL (0-129) HDL Cholesterol 40 mg/dL (40-60) Cholesterol/HDL Ratio 3.4 Glucose (Fingerstick) 90 mg/dL (70-99) 92 mg/dL (70-99) Test 08/21/19 01:25 08/21/19 08:20 White Blood Count 6.2 x10^3/uL (4.0-11.0) Red Blood Count 4.75 x10^6/uL (4.30-5.70) Hemoglobin 14.4 g/dL (13.0-17.5) Hematocrit 43.1 % (39.0-53.0) Mean Corpuscular Volume 91 fL (79-100) Mean Corpuscular Hemoglobin 30 pg (25-35) Mean Corpuscular Hemoglobin Concent 33 g/dL (31-37) Red Cell Distribution Width 13.8 % (11.5-14.5) Platelet Count 185 x10^3/uL (140-400) Neutrophils (%) (Auto) 48 % (31-73) Lymphocytes (%) (Auto) 41 % (24-48) Monocytes (%) (Auto) 8 % (0-9) Eosinophils (%) (Auto) 2 % (0-3) Basophils (%) (Auto) 1 % (0-3) Neutrophils # (Auto) 3.0 x10^3/uL (1.8-7.7) Lymphocytes # (Auto) 2.6 x10^3/uL (1.0-4.8) Monocytes # (Auto) 0.5 x10^3/uL (0.0-1.1) Eosinophils # (Auto) 0.1 x10^3/uL (0.0-0.7) Basophils # (Auto) 0.0 x10^3/uL (0.0-0.2) Heparin Anti-Xa Act, Unfractionated 0.58 IU/mL (0.30-0.70) 0.40 IU/mL (0.30-0.70) Sodium Level 141 mmol/L (136-145) Potassium Level 3.8 mmol/L (3.5-5.1) Chloride Level 106 mmol/L (98-107) Carbon Dioxide Level 28 mmol/L (21-32) Anion Gap 7 (6-14) Blood Urea Nitrogen 10 mg/dL (8-26) Creatinine 1.0 mg/dL (0.7-1.3) Estimated GFR (Cockcroft-Gault) 97.8 Glucose Level 95 mg/dL (70-99) Calcium Level 8.8 mg/dL (8.5-10.1) Magnesium Level 2.0 mg/dL (1.8-2.4) Laboratory Tests Test 08/20/19 19:00 08/21/19 01:25 08/21/19 08:20 Heparin Anti-Xa Act, Unfractionated 0.63 IU/mL (0.30-0.70) 0.58 IU/mL (0.30-0.70) 0.40 IU/mL (0.30-0.70) White Blood Count 6.2 x10^3/uL (4.0-11.0) Red Blood Count 4.75 x10^6/uL (4.30-5.70) Hemoglobin 14.4 g/dL (13.0-17.5) Hematocrit 43.1 % (39.0-53.0) Mean Corpuscular Volume 91 fL (79-100) Mean Corpuscular Hemoglobin 30 pg (25-35) Mean Corpuscular Hemoglobin Concent 33 g/dL (31-37) Red Cell Distribution Width 13.8 % (11.5-14.5) Platelet Count 185 x10^3/uL (140-400) Neutrophils (%) (Auto) 48 % (31-73) Lymphocytes (%) (Auto) 41 % (24-48) Monocytes (%) (Auto) 8 % (0-9) Eosinophils (%) (Auto) 2 % (0-3) Basophils (%) (Auto) 1 % (0-3) Neutrophils # (Auto) 3.0 x10^3/uL (1.8-7.7) Lymphocytes # (Auto) 2.6 x10^3/uL (1.0-4.8) Monocytes # (Auto) 0.5 x10^3/uL (0.0-1.1) Eosinophils # (Auto) 0.1 x10^3/uL (0.0-0.7) Basophils # (Auto) 0.0 x10^3/uL (0.0-0.2) Sodium Level 141 mmol/L (136-145) Potassium Level 3.8 mmol/L (3.5-5.1) Chloride Level 106 mmol/L (98-107) Carbon Dioxide Level 28 mmol/L (21-32) Anion Gap 7 (6-14) Blood Urea Nitrogen 10 mg/dL (8-26) Creatinine 1.0 mg/dL (0.7-1.3) Estimated GFR (Cockcroft-Gault) 97.8 Glucose Level 95 mg/dL (70-99) Calcium Level 8.8 mg/dL (8.5-10.1) Magnesium Level 2.0 mg/dL (1.8-2.4) Medications Current Medications Sodium Chloride 1,000 ml @ 1,000 mls/hr 1X ONCE IV Last administered on 08/19/19at 16:29; Start 08/19/19 at 16:15; Stop 08/19/19 at 17:14; Status DC Aspirin (Children'S Aspirin) 324 mg 1X ONCE PO ; Start 08/19/19 at 16:15; Stop 08/19/19 at 16:14; Status DC Nitroglycerin (Nitrostat) 0.4 mg PRN Q5MIN STAT SL ; Start 08/19/19 at 16:07; Stop 08/19/19 at 16:14; Status DC Morphine Sulfate (Morphine Sulfate) 4 mg 1X ONCE IV Last administered on 08/19/19at 16:29; Start 08/19/19 at 16:30; Stop 08/19/19 at 16:31; Status DC Ondansetron HCl (Zofran) 4 mg PRN Q8HRS PRN IVP NAUSEA/VOMITING; Start 08/19/19 at 17:30; Stop 08/19/19 at 20:45; Status DC Heparin Sodium (Porcine) (Heparin Sodium) 4,000 unit 1X ONCE IV Last administered on 08/19/19at 18:50; Start 08/19/19 at 18:43; Stop 08/19/19 at 18:46; Status DC Heparin Sodium/ Dextrose 500 ml @ 20 mls/hr CONT PRN IV PER PROTOCOL Last administered on 08/19/19at 18:51; Start 08/19/19 at 18:45; Stop 08/20/19 at 15:59; Status DC Heparin Sodium (Porcine) (Heparin Sodium) 2,850 unit PRN Q6HRS PRN IV FOR UFH LEVEL LESS THAN 0.2; Start 08/19/19 at 18:43 Ondansetron HCl (Zofran) 4 mg PRN Q6HRS PRN IVP NAUSEA/VOMITING; Start 08/19/19 at 20:45 Aspirin (Children'S Aspirin) 81 mg DAILY PO Last administered on 08/20/19at 09:22; Start 08/20/19 at 09:00; Stop 08/20/19 at 17:14; Status DC Atorvastatin Calcium (Lipitor) 40 mg QHS PO Last administered on 08/20/19at 21:03; Start 08/19/19 at 21:00 Calcium Carbonate/ Glycine (Tums) 500 mg PRN BID PRN PO INDIGESTION; Start 08/19/19 at 20:45 Metoprolol Tartrate (Lopressor) 25 mg BID PO Last administered on 08/21/19at 08:07; Start 08/19/19 at 21:00 Nitroglycerin (Nitrostat) 0.4 mg PRN Q5MIN PRN SL chest pain; Start 08/19/19 at 20:45; Stop 08/21/19 at 08:39; Status DC Bismuth Subsalicylate (Pepto-Bismol) 262 mg DAILY PO ; Start 08/20/19 at 09:00 Morphine Sulfate (Morphine Sulfate) 4 mg PRN Q2HR PRN IV MODERATE PAIN Last administered on 08/21/19at 00:04; Start 08/19/19 at 20:45 Pantoprazole Sodium (PROTONIX VIAL for IV PUSH) 40 mg 1X ONCE IVP Last adminis tered on 08/19/19at 22:46; Start 08/19/19 at 21:00; Stop 08/19/19 at 21:01; Status DC Insulin Human Lispro (HumaLOG) 0-5 UNITS TIDWMEALS SQ ; Start 08/20/19 at 08:00; Stop 08/20/19 at 11:41; Status DC Dextrose (Dextrose 50%-Water Syringe) 12.5 gm PRN Q15MIN PRN IV SEE COMMENTS; Start 08/19/19 at 21:00; Stop 08/20/19 at 11:41; Status DC Nitroglycerin/ Dextrose 250 ml @ 1.5 mls/hr CONT PRN IV SEE I/O RECORD Last administered on 08/19/19at 23:26; Start 08/19/19 at 23:00 Acetaminophen (Tylenol) 650 mg PRN Q6HRS PRN PO PAIN; Start 08/20/19 at 00:15; Stop 08/20/19 at 17:15; Status DC Info (Anti-Coagulation Monitoring By Pharmacy) 1 each PRN DAILY PRN MC SEE COMMENTS Last administered on 08/21/19at 08:33; Start 08/20/19 at 13:30 Lidocaine HCl (Lidocaine 1% 20ml Vial) 20 ml STK-MED ONCE .ROUTE ; Start 08/20/19 at 14:07; Stop 08/20/19 at 14:07; Status DC Heparin Sodium/ Sodium Chloride 1,000 ml @ As Directed STK-MED ONCE .ROUTE ; Start 08/20/19 at 14:07; Stop 08/20/19 at 14:07; Status DC Iohexol (Omnipaque 300 Mg/ml) 100 ml STK-MED ONCE .ROUTE ; Start 08/20/19 at 14:19; Stop 08/20/19 at 14:20; Status DC Fentanyl Citrate (Fentanyl 2ml Vial) 100 mcg STK-MED ONCE .ROUTE ; Start 08/20/19 at 14:21; Stop 08/20/19 at 14:22; Status DC Midazolam HCl (Versed) 2 mg STK-MED ONCE .ROUTE ; Start 08/20/19 at 14:22; Stop 08/20/19 at 14:22; Status DC Midazolam HCl (Versed) 2 mg STK-MED ONCE .ROUTE ; Start 08/20/19 at 14:53; Stop 08/20/19 at 14:53; Status DC Heparin Sodium/ Dextrose 500 ml @ As Directed STK-MED ONCE IV ; Start 08/20/19 at 15:37; Stop 08/20/19 at 15:37; Status DC Heparin Sodium (Porcine) (Heparin Sodium) 10,000 unit STK-MED ONCE .ROUTE ; Start 08/20/19 at 15:37; Stop 08/20/19 at 15:38; Status DC Tirofiban/Sodium Chloride 250 ml @ As Directed STK-MED ONCE IV ; Start 08/20/19 at 15:48; Stop 08/20/19 at 15:48; Status DC Heparin Sodium/ Dextrose 500 ml @ 0 mls/hr CONT PRN IV PER PROTOCOL Last administered on 08/21/19at 09:36; Start 08/20/19 at 15:45 Heparin Sodium (Porcine) (Heparin Sodium) 3,050 unit PRN Q6HRS PRN IV FOR UFH LEVEL LESS THAN 0.2; Start 08/20/19 at 15:45 Heparin Sodium (Porcine) (Heparin Sodium) 3,000 unit 1X ONCE IV Last administered on 08/20/19at 16:03; Start 08/20/19 at 15:45; Stop 08/20/19 at 16:00; Status DC Tirofiban/Sodium Chloride 250 ml @ 0 mls/hr CONT PRN IV SEE COMMENTS Last administered on 08/21/19at 09:37; Start 08/20/19 at 15:45; Stop 08/21/19 at 09:44; Status DC Heparin Sodium/ Sodium Chloride (HEPARIN for ARTERIAL LINE FLUSH) 1,000 unit 1X ONCE IART Last administered on 08/20/19 16:04; Start 08/20/19 at 16:00; Stop 08/20/19 at 16:01; Status DC Heparin Sodium/ Sodium Chloride (HEPARIN for ARTERIAL LINE FLUSH) 1,000 unit 1X ONCE IART Last administered on 08/20/19 16:05; Start 08/20/19 at 16:00; Stop 08/20/19 at 16:01; Status DC Midazolam HCl (Versed) 2 mg 1X ONCE IV Last administered on 08/20/19 16:06; Start 08/20/19 at 16:00; Stop 08/20/19 at 16:01; Status DC Fentanyl Citrate (Fentanyl 2ml Vial) 100 mcg 1X ONCE IV Last administered on 08/20/19 16:06; Start 08/20/19 at 16:00; Stop 08/20/19 at 16:01; Status DC Iohexol (Omnipaque 300 Mg/ml) 100 ml 1X ONCE IART Last administered on 08/20/19at 16:05; Start 08/20/19 at 16:00; Stop 08/20/19 at 16:01; Status DC Lidocaine HCl (Lidocaine 1% 20ml Vial) 20 ml 1X ONCE INJ Last administered on 08/20/19at 16:05; Start 08/20/19 at 16:00; Stop 08/20/19 at 16:01; Status DC Sodium Chloride (Normal Saline Flush) 3 ml QSHIFT PRN IV AFTER MEDS AND BLOOD DRAWS; Start 08/20/19 at 17:15 Sodium Chloride 1,000 ml @ 60 mls/hr [id number] IV Last administered on 08/20/19at 19:34; Start 08/20/19 at 17:08; Stop 08/20/19 at 23:07; Status DC Aspirin (Ecotrin) 81 mg [id number] PO Last administered on 08/21/19at 08:06; Start 08/21/19 at 08:00 Acetaminophen (Tylenol) 650 mg PRN Q6HRS PRN PO MILD PAIN 1-3; Start 08/20/19 at 17:15 Fentanyl Citrate (Fentanyl 2ml Vial) 50 mcg PRN Q1HR PRN IV Severe pain; Start 08/20/19 at 17:15 Nitroglycerin (Nitrostat) 0.4 mg PRN Q5MIN PRN SL CHEST PAIN; Start 08/20/19 at 17:15 Ticagrelor (Brilinta) 180 mg 1X ONCE PO Last administered on 08/20/19at 18:45; Start 08/20/19 at 17:30; Stop 08/20/19 at 17:31; Status DC Ticagrelor (Brilinta) 90 mg BID PO Last administered on 08/21/19at 08:07; Start 08/21/19 at 09:00 Potassium Chloride (Klor-Con) 20 meq 1X ONCE PO Last administered on 08/21/19at 10:33; Start 08/21/19 at 09:45; Stop 08/21/19 at 09:46; Status DC Zolpidem Tartrate (Ambien) 5 mg HS PO ; Start 08/21/19 at 21:00 Active Scripts Active Reported Tums (Calcium Carbonate) 200 Mg Tab.chew 500 Mg PO PRN BID PRN NITROGLYCERIN SubLingual (Nitroglycerin) 0.4 Mg Tab.subl 1 Tab SL UD Metoprolol Tartrate 25 Mg Tablet 1 Tab PO BID Bismatrol (Bismuth Subsalicylate) 262 Mg Tab.chew 262 Mg PO DAILY Lipitor (Atorvastatin Calcium) 40 Mg Tablet 1 Tab PO QHS Aspirin 81 Mg Tab.chew 1 Tab PO DAILY Vitals/I & O Vital Sign - Last 24 Hours 08/20/19 08/20/19 08/20/19 08/20/19 16:06 16:07 16:15 16:30 Pulse 72 84 84 Resp 21 16 B/P (MAP) 118/80 (93) 119/82 (94) Pulse Ox 97 98 99 98 O2 Delivery Nasal Cannula Nasal Cannula Nasal Cannula Nasal Cannula O2 Flow Rate 2.0 2.0 2.0 2.0 08/20/19 08/20/19 08/20/19 08/20/19 16:45 17:00 17:30 18:00 Pulse 74 73 76 91 B/P (MAP) 132/89 (103) 135/84 (101) 123/75 (91) 147/64 (91) Pulse Ox 97 99 97 97 O2 Delivery Nasal Cannula Nasal Cannula Nasal Cannula Nasal Cannula O2 Flow Rate 2.0 2.0 2.0 2.0 08/20/19 08/20/19 08/20/19 08/20/19 19:00 19:20 20:00 20:00 Temp 99.1 99.1 Pulse 80 84 Resp 16 B/P (MAP) 130/74 (92) 119/74 (89) Pulse Ox 96 96 O2 Delivery Nasal Cannula Nasal Cannula Room Air O2 Flow Rate 2.0 2.0 2.0 08/20/19 08/20/19 08/20/19 08/20/19 21:00 21:03 22:00 23:00 Pulse 76 75 76 78 Resp 18 18 18 B/P (MAP) 123/68 (86) 123/68 137/74 (95) 133/75 (94) Pulse Ox 97 97 98 O2 Delivery Nasal Cannula Nasal Cannula Nasal Cannula O2 Flow Rate 2.0 2.0 2.0 08/21/19 08/21/19 08/21/19 08/21/19 00:00 00:00 00:04 00:34 Temp 98.7 98.7 Pulse 68 Resp 18 20 16 B/P (MAP) 131/75 (93) Pulse Ox 97 O2 Delivery Room Air Nasal Cannula O2 Flow Rate 2.0 2.0 08/21/19 08/21/19 08/21/19 08/21/19 01:00 02:00 03:00 04:00 Temp 98.4 98.4 Pulse 84 68 72 70 Resp 16 16 16 16 B/P (MAP) 123/73 (90) 105/57 (73) 117/72 (87) 140/71 (94) Pulse Ox 96 95 93 95 O2 Delivery Nasal Cannula Nasal Cannula Nasal Cannula Nasal Cannula O2 Flow Rate 2.0 2.0 2.0 2.0 08/21/19 08/21/19 08/21/19 08/21/19 04:00 05:00 06:00 07:00 Pulse 70 72 66 Resp 18 18 8 B/P (MAP) 125/79 (94) 100/54 (69) 140/73 (95) Pulse Ox 96 94 94 O2 Delivery Room Air Nasal Cannula Room Air Room Air O2 Flow Rate 2.0 2.0 08/21/19 08/21/19 08/21/19 08/21/19 08:00 08:00 08:07 09:00 Temp 98.6 98.6 Pulse 76 70 Resp 14 8 B/P (MAP) 140/76 (97) 140/73 122/61 (81) Pulse Ox 97 92 O2 Delivery Room Air Room Air Room Air 08/21/19 08/21/19 08/21/19 10:00 11:00 12:00 Pulse 70 86 Resp 11 27 B/P (MAP) 126/68 (87) 142/69 (93) Pulse Ox 92 92 O2 Delivery Room Air Room Air Room Air Intake and Output 08/20/19 08/20/19 08/21/19 14:59 22:59 06:59 Intake Total 0 ml 1305 ml 865 ml Output Total 800 ml Balance 0 ml 1305 ml 65 ml HARISH GONZALEZ MD Aug 21, 2019 14:28
[2019-08-21] MEDS: ATORVASTATIN CALCIUM 40 MG TABLET. PO SCH (20:25)
[2019-08-21] MEDS: ZOLPIDEM 5 MG TABLET. PO SCH (20:25)
[2019-08-22] VITALS (24 sets, daily range): BP systolic 97–152; BP diastolic 58–88
[2019-08-22] MEDS: HEPARIN 25,000UTS/500ML PREMIX 500 ML IV PRN ×2 (02:33→18:40)
[2019-08-22 04:51] LABS: BASO % 0 % (0-3); EOS # 0.1 x10^3/uL (0.0-0.7); EOS % 2 % (0-3); HEMATOCRIT 42.8 % (39.0-53.0); LYMPH # 2.3 x10^3/uL (1.0-4.8); LYMPH % 40 % (24-48); MEAN CORPUSCULAR HEMOGLOBIN 30 pg (25-35); MEAN CORPUSCULAR HGB CONC 33 g/dL (31-37); MEAN CORPUSCULAR VOLUME 92 fL (79-100); MONO # 0.4 x10^3/uL (0.0-1.1); MONO % 7 % (0-9); NEUT % 50 % (31-73); PLATELET COUNT 194 x10^3/uL (140-400); RED BLOOD COUNT 4.63 x10^6/uL (4.30-5.70); WHITE BLOOD COUNT 5.9 x10^3/uL (4.0-11.0)
[2019-08-22 05:28] LABS: ALBUMIN 3.4 g/dL (3.4-5.0); ALBUMIN/GLOBULIN RATIO 1.1 (1.0-1.7); CALCIUM 8.9 mg/dL (8.5-10.1); CREATININE 1.1 mg/dL (0.7-1.3); GFR 87.6; TOTAL BILIRUBIN 0.2 mg/dL (0.2-1.0); TOTAL PROTEIN 6.5 g/dL (6.4-8.2)
[2019-08-22] MEDS: METOPROLOL TART IMMED RELEASE 25 MG TABLET. PO SCH ×2 (08:10→21:42)
[2019-08-22] MEDS: ASPIRIN ENTERIC COATED 81 MG TABLET.DR. PO SCH (08:10)
[2019-08-22] MEDS: TICAGRELOR 90 MG TABLET. PO SCH ×2 (08:10→21:41)
[2019-08-22] MEDS: BISMUTH SUBSALICYLATE 262 MG/15 ML ORAL.SUSP 236ML BOTTLE. PO SCH (08:11)
[2019-08-22] MEDS: TIROFIBAN 12.5MG -0.9% NS 250 ML IV PRN ×2 (08:19→19:44)
[2019-08-22] MEDS: ANTI-COAG MONITOR BY PHARMACY. MC PRN (10:49)
--- NOTE | 2019-08-22 14:36 | PDOC ---
PROGRESS NOTES Chief Complaint Chief Complaint Chest pain - NSTEMI, heparin GTT, dm2 HTN - will cont BP meds, monitor HLD - cont statin, check fasting lipids CAD - with 2 prior stents obese, BMI 32 History of Present Illness History of Present Illness plan to repreat cardiac cath tomorrow, , unable to stent RCA, cont Aggrastat. pt pain is better, feels well pain better slept much better with ambien Vitals Vitals Vital Signs Date Time Temp Pulse Resp B/P (MAP) Pulse Ox O2 Delivery O2 Flow Rate FiO2 08/22/19 13:00 72 16 127/79 (95) 95 Room Air 08/22/19 12:00 98.2 98.2 Physical Exam General: No acute distress Heart: Regular rate Abdomen: Normal bowel sounds Extremities: No cyanosis, No edema Skin: No breakdown Labs LABS Laboratory Tests Test 08/21/19 20:40 08/22/19 00:25 08/22/19 05:30 Heparin Anti-Xa Act, Unfractionated 0.44 IU/mL (0.30-0.70) 0.44 IU/mL (0.30-0.70) 0.51 IU/mL (0.30-0.70) White Blood Count 5.9 x10^3/uL (4.0-11.0) Red Blood Count 4.63 x10^6/uL (4.30-5.70) Hemoglobin 14.0 g/dL (13.0-17.5) Hematocrit 42.8 % (39.0-53.0) Mean Corpuscular Volume 92 fL (79-100) Mean Corpuscular Hemoglobin 30 pg (25-35) Mean Corpuscular Hemoglobin Concent 33 g/dL (31-37) Red Cell Distribution Width 14.0 % (11.5-14.5) Platelet Count 194 x10^3/uL (140-400) Neutrophils (%) (Auto) 50 % (31-73) Lymphocytes (%) (Auto) 40 % (24-48) Monocytes (%) (Auto) 7 % (0-9) Eosinophils (%) (Auto) 2 % (0-3) Basophils (%) (Auto) 0 % (0-3) Neutrophils # (Auto) 3.0 x10^3/uL (1.8-7.7) Lymphocytes # (Auto) 2.3 x10^3/uL (1.0-4.8) Monocytes # (Auto) 0.4 x10^3/uL (0.0-1.1) Eosinophils # (Auto) 0.1 x10^3/uL (0.0-0.7) Basophils # (Auto) 0.0 x10^3/uL (0.0-0.2) Sodium Level 143 mmol/L (136-145) Potassium Level 4.0 mmol/L (3.5-5.1) Chloride Level 107 mmol/L (98-107) Carbon Dioxide Level 26 mmol/L (21-32) Anion Gap 10 (6-14) Blood Urea Nitrogen 10 mg/dL (8-26) Creatinine 1.1 mg/dL (0.7-1.3) Estimated GFR (Cockcroft-Gault) 87.6 BUN/Creatinine Ratio 9 (6-20) Glucose Level 176 mg/dL (70-99) Calcium Level 8.9 mg/dL (8.5-10.1) Total Bilirubin 0.2 mg/dL (0.2-1.0) Aspartate Amino Transf (AST/SGOT) 61 U/L (15-37) Alanine Aminotransferase (ALT/SGPT) 39 U/L (16-63) Alkaline Phosphatase 88 U/L (46-116) Total Protein 6.5 g/dL (6.4-8.2) Albumin 3.4 g/dL (3.4-5.0) Albumin/Globulin Ratio 1.1 (1.0-1.7) Assessment and Plan Assessmemt and Plan Problems Medical Problems: (1) Chest pain Status: Acute Comment Review of Relevant I have reviewed the following items hernan (where applicable) has been applied. Labs Laboratory Tests Test 08/20/19 19:00 08/21/19 01:25 08/21/19 08:20 08/21/19 14:20 Heparin Anti-Xa Act, Unfractionated 0.63 IU/mL (0.30-0.70) 0.58 IU/mL (0.30-0.70) 0.40 IU/mL (0.30-0.70) 0.26 IU/mL (0.30-0.70) White Blood Count 6.2 x10^3/uL (4.0-11.0) Red Blood Count 4.75 x10^6/uL (4.30-5.70) Hemoglobin 14.4 g/dL (13.0-17.5) Hematocrit 43.1 % (39.0-53.0) Mean Corpuscular Volume 91 fL (79-100) Mean Corpuscular Hemoglobin 30 pg (25-35) Mean Corpuscular Hemoglobin Concent 33 g/dL (31-37) Red Cell Distribution Width 13.8 % (11.5-14.5) Platelet Count 185 x10^3/uL (140-400) Neutrophils (%) (Auto) 48 % (31-73) Lymphocytes (%) (Auto) 41 % (24-48) Monocytes (%) (Auto) 8 % (0-9) Eosinophils (%) (Auto) 2 % (0-3) Basophils (%) (Auto) 1 % (0-3) Neutrophils # (Auto) 3.0 x10^3/uL (1.8-7.7) Lymphocytes # (Auto) 2.6 x10^3/uL (1.0-4.8) Monocytes # (Auto) 0.5 x10^3/uL (0.0-1.1) Eosinophils # (Auto) 0.1 x10^3/uL (0.0-0.7) Basophils # (Auto) 0.0 x10^3/uL (0.0-0.2) Sodium Level 141 mmol/L (136-145) Potassium Level 3.8 mmol/L (3.5-5.1) Chloride Level 106 mmol/L (98-107) Carbon Dioxide Level 28 mmol/L (21-32) Anion Gap 7 (6-14) Blood Urea Nitrogen 10 mg/dL (8-26) Creatinine 1.0 mg/dL (0.7-1.3) Estimated GFR (Cockcroft-Gault) 97.8 Glucose Level 95 mg/dL (70-99) Calcium Level 8.8 mg/dL (8.5-10.1) Magnesium Level 2.0 mg/dL (1.8-2.4) Test 08/21/19 20:40 08/22/19 00:25 08/22/19 05:30 Heparin Anti-Xa Act, Unfractionated 0.44 IU/mL (0.30-0.70) 0.44 IU/mL (0.30-0.70) 0.51 IU/mL (0.30-0.70) White Blood Count 5.9 x10^3/uL (4.0-11.0) Red Blood Count 4.63 x10^6/uL (4.30-5.70) Hemoglobin 14.0 g/dL (13.0-17.5) Hematocrit 42.8 % (39.0-53.0) Mean Corpuscular Volume 92 fL (79-100) Mean Corpuscular Hemoglobin 30 pg (25-35) Mean Corpuscular Hemoglobin Concent 33 g/dL (31-37) Red Cell Distribution Width 14.0 % (11.5-14.5) Platelet Count 194 x10^3/uL (140-400) Neutrophils (%) (Auto) 50 % (31-73) Lymphocytes (%) (Auto) 40 % (24-48) Monocytes (%) (Auto) 7 % (0-9) Eosinophils (%) (Auto) 2 % (0-3) Basophils (%) (Auto) 0 % (0-3) Neutrophils # (Auto) 3.0 x10^3/uL (1.8-7.7) Lymphocytes # (Auto) 2.3 x10^3/uL (1.0-4.8) Monocytes # (Auto) 0.4 x10^3/uL (0.0-1.1) Eosinophils # (Auto) 0.1 x10^3/uL (0.0-0.7) Basophils # (Auto) 0.0 x10^3/uL (0.0-0.2) Sodium Level 143 mmol/L (136-145) Potassium Level 4.0 mmol/L (3.5-5.1) Chloride Level 107 mmol/L (98-107) Carbon Dioxide Level 26 mmol/L (21-32) Anion Gap 10 (6-14) Blood Urea Nitrogen 10 mg/dL (8-26) Creatinine 1.1 mg/dL (0.7-1.3) Estimated GFR (Cockcroft-Gault) 87.6 BUN/Creatinine Ratio 9 (6-20) Glucose Level 176 mg/dL (70-99) Calcium Level 8.9 mg/dL (8.5-10.1) Total Bilirubin 0.2 mg/dL (0.2-1.0) Aspartate Amino Transf (AST/SGOT) 61 U/L (15-37) Alanine Aminotransferase (ALT/SGPT) 39 U/L (16-63) Alkaline Phosphatase 88 U/L (46-116) Total Protein 6.5 g/dL (6.4-8.2) Albumin 3.4 g/dL (3.4-5.0) Albumin/Globulin Ratio 1.1 (1.0-1.7) Laboratory Tests Test 08/21/19 20:40 08/22/19 00:25 08/22/19 05:30 Heparin Anti-Xa Act, Unfractionated 0.44 IU/mL (0.30-0.70) 0.44 IU/mL (0.30-0.70) 0.51 IU/mL (0.30-0.70) White Blood Count 5.9 x10^3/uL (4.0-11.0) Red Blood Count 4.63 x10^6/uL (4.30-5.70) Hemoglobin 14.0 g/dL (13.0-17.5) Hematocrit 42.8 % (39.0-53.0) Mean Corpuscular Volume 92 fL (79-100) Mean Corpuscular Hemoglobin 30 pg (25-35) Mean Corpuscular Hemoglobin Concent 33 g/dL (31-37) Red Cell Distribution Width 14.0 % (11.5-14.5) Platelet Count 194 x10^3/uL (140-400) Neutrophils (%) (Auto) 50 % (31-73) Lymphocytes (%) (Auto) 40 % (24-48) Monocytes (%) (Auto) 7 % (0-9) Eosinophils (%) (Auto) 2 % (0-3) Basophils (%) (Auto) 0 % (0-3) Neutrophils # (Auto) 3.0 x10^3/uL (1.8-7.7) Lymphocytes # (Auto) 2.3 x10^3/uL (1.0-4.8) Monocytes # (Auto) 0.4 x10^3/uL (0.0-1.1) Eosinophils # (Auto) 0.1 x10^3/uL (0.0-0.7) Basophils # (Auto) 0.0 x10^3/uL (0.0-0.2) Sodium Level 143 mmol/L (136-145) Potassium Level 4.0 mmol/L (3.5-5.1) Chloride Level 107 mmol/L (98-107) Carbon Dioxide Level 26 mmol/L (21-32) Anion Gap 10 (6-14) Blood Urea Nitrogen 10 mg/dL (8-26) Creatinine 1.1 mg/dL (0.7-1.3) Estimated GFR (Cockcroft-Gault) 87.6 BUN/Creatinine Ratio 9 (6-20) Glucose Level 176 mg/dL (70-99) Calcium Level 8.9 mg/dL (8.5-10.1) Total Bilirubin 0.2 mg/dL (0.2-1.0) Aspartate Amino Transf (AST/SGOT) 61 U/L (15-37) Alanine Aminotransferase (ALT/SGPT) 39 U/L (16-63) Alkaline Phosphatase 88 U/L (46-116) Total Protein 6.5 g/dL (6.4-8.2) Albumin 3.4 g/dL (3.4-5.0) Albumin/Globulin Ratio 1.1 (1.0-1.7) Medications Current Medications Sodium Chloride 1,000 ml @ 1,000 mls/hr 1X ONCE IV Last administered on 08/19/19at 16:29; Start 08/19/19 at 16:15; Stop 08/19/19 at 17:14; Status DC Aspirin (Children'S Aspirin) 324 mg 1X ONCE PO ; Start 08/19/19 at 16:15; Stop 08/19/19 at 16:14; Status DC Nitroglycerin (Nitrostat) 0.4 mg PRN Q5MIN STAT SL ; Start 08/19/19 at 16:07; Stop 08/19/19 at 16:14; Status DC Morphine Sulfate (Morphine Sulfate) 4 mg 1X ONCE IV Last administered on 08/19/19at 16:29; Start 08/19/19 at 16:30; Stop 08/19/19 at 16:31; Status DC Ondansetron HCl (Zofran) 4 mg PRN Q8HRS PRN IVP NAUSEA/VOMITING; Start 08/19/19 at 17:30; Stop 08/19/19 at 20:45; Status DC Heparin Sodium (Porcine) (Heparin Sodium) 4,000 unit 1X ONCE IV Last administered on 08/19/19at 18:50; Start 08/19/19 at 18:43; Stop 08/19/19 at 18:46; Status DC Heparin Sodium/ Dextrose 500 ml @ 20 mls/hr CONT PRN IV PER PROTOCOL Last administered on 08/19/19at 18:51; Start 08/19/19 at 18:45; Stop 08/20/19 at 15:59; Status DC Heparin Sodium (Porcine) (Heparin Sodium) 2,850 unit PRN Q6HRS PRN IV FOR UFH LEVEL LESS THAN 0.2; Start 08/19/19 at 18:43 Ondansetron HCl (Zofran) 4 mg PRN Q6HRS PRN IVP NAUSEA/VOMITING; Start 08/19/19 at 20:45 Aspirin (Children'S Aspirin) 81 mg DAILY PO Last administered on 08/20/19at 09:22; Start 08/20/19 at 09:00; Stop 08/20/19 at 17:14; Status DC Atorvastatin Calcium (Lipitor) 40 mg QHS PO Last administered on 08/21/19at 20:25; Start 08/19/19 at 21:00 Calcium Carbonate/ Glycine (Tums) 500 mg PRN BID PRN PO INDIGESTION; Start 08/19/19 at 20:45 Metoprolol Tartrate (Lopressor) 25 mg BID PO Last administered on 08/22/19at 08:10; Start 08/19/19 at 21:00 Nitroglycerin (Nitrostat) 0.4 mg PRN Q5MIN PRN SL chest pain; Start 08/19/19 at 20:45; Stop 08/21/19 at 08:39; Status DC Bismuth Subsalicylate (Pepto-Bismol) 262 mg DAILY PO ; Start 08/20/19 at 09:00 Morphine Sulfate (Morphine Sulfate) 4 mg PRN Q2HR PRN IV MODERATE PAIN Last administered on 08/21/19at 00:04; Start 08/19/19 at 20:45 Pantoprazole Sodium (PROTONIX VIAL for IV PUSH) 40 mg 1X ONCE IVP Last administered on 08/19/19at 22:46; Start 08/19/19 at 21:00; Stop 08/19/19 at 21:01; Status DC Insulin Human Lispro (HumaLOG) 0-5 UNITS TIDWMEALS SQ ; Start 08/20/19 at 08:00; Stop 08/20/19 at 11:41; Status DC Dextrose (Dextrose 50%-Water Syringe) 12.5 gm PRN Q15MIN PRN IV SEE COMMENTS; Start 08/19/19 at 21:00; Stop 08/20/19 at 11:41; Status DC Nitroglycerin/ Dextrose 250 ml @ 1.5 mls/hr CONT PRN IV SEE I/O RECORD Last administered on 08/19/19at 23:26; Start 08/19/19 at 23:00 Acetaminophen (Tylenol) 650 mg PRN Q6HRS PRN PO PAIN; Start 08/20/19 at 00:15; Stop 08/20/19 at 17:15; Status DC Info (Anti-Coagulation Monitoring By Pharmacy) 1 each PRN DAILY PRN MC SEE C OMMENTS Last administered on 08/22/19at 10:49; Start 08/20/19 at 13:30 Lidocaine HCl (Lidocaine 1% 20ml Vial) 20 ml STK-MED ONCE .ROUTE ; Start 08/20/19 at 14:07; Stop 08/20/19 at 14:07; Status DC Heparin Sodium/ Sodium Chloride 1,000 ml @ As Directed STK-MED ONCE .ROUTE ; Start 08/20/19 at 14:07; Stop 08/20/19 at 14:07; Status DC Iohexol (Omnipaque 300 Mg/ml) 100 ml STK-MED ONCE .ROUTE ; Start 08/20/19 at 14:19; Stop 08/20/19 at 14:20; Status DC Fentanyl Citrate (Fentanyl 2ml Vial) 100 mcg STK-MED ONCE .ROUTE ; Start 08/20/19 at 14:21; Stop 08/20/19 at 14:22; Status DC Midazolam HCl (Versed) 2 mg STK-MED ONCE .ROUTE ; Start 08/20/19 at 14:22; Stop 08/20/19 at 14:22; Status DC Midazolam HCl (Versed) 2 mg STK-MED ONCE .ROUTE ; Start 08/20/19 at 14:53; Stop 08/20/19 at 14:53; Status DC Heparin Sodium/ Dextrose 500 ml @ As Directed STK-MED ONCE IV ; Start 08/20/19 at 15:37; Stop 08/20/19 at 15:37; Status DC Heparin Sodium (Porcine) (Heparin Sodium) 10,000 unit STK-MED ONCE .ROUTE ; Start 08/20/19 at 15:37; Stop 08/20/19 at 15:38; Status DC Tirofiban/Sodium Chloride 250 ml @ As Directed STK-MED ONCE IV ; Start 08/20/19 at 15:48; Stop 08/20/19 at 15:48; Status DC Heparin Sodium/ Dextrose 500 ml @ 0 mls/hr CONT PRN IV PER PROTOCOL Last administered on 08/22/19at 02:33; Start 08/20/19 at 15:45 Heparin Sodium (Porcine) (Heparin Sodium) 3,050 unit PRN Q6HRS PRN IV FOR UFH LEVEL LESS THAN 0.2; Start 08/20/19 at 15:45 Heparin Sodium (Porcine) (Heparin Sodium) 3,000 unit 1X ONCE IV Last administered on 08/20/19at 16:03; Start 08/20/19 at 15:45; Stop 08/20/19 at 16:00; Status DC Tirofiban/Sodium Chloride 250 ml @ 0 mls/hr CONT PRN IV SEE COMMENTS Last administered on 08/21/19at 09:37; Start 08/20/19 at 15:45; Stop 08/21/19 at 09:44; Status DC Heparin Sodium/ Sodium Chloride (HEPARIN for ARTERIAL LINE FLUSH) 1,000 unit 1X ONCE IART Last administered on 08/20/19at 16:04; Start 08/20/19 at 16:00; Stop 08/20/19 at 16:01; Status DC Heparin Sodium/ Sodium Chloride (HEPARIN for ARTERIAL LINE FLUSH) 1,000 unit 1X ONCE IART Last administered on 08/20/19at 16:05; Start 08/20/19 at 16:00; Stop 08/20/19 at 16:01; Status DC Midazolam HCl (Versed) 2 mg 1X ONCE IV Last administered on 08/20/19at 16:06; Start 08/20/19 at 16:00; Stop 08/20/19 at 16:01; Status DC Fentanyl Citrate (Fentanyl 2ml Vial) 100 mcg 1X ONCE IV Last administered on 08/20/19at 16:06; Start 08/20/19 at 16:00; Stop 08/20/19 at 16:01; Status DC Iohexol (Omnipaque 300 Mg/ml) 100 ml 1X ONCE IART Last administered on 08/20/19at 16:05; Start 08/20/19 at 16:00; Stop 08/20/19 at 16:01; Status DC Lidocaine HCl (Lidocaine 1% 20ml Vial) 20 ml 1X ONCE INJ Last administered on 08/20/19at 16:05; Start 08/20/19 at 16:00; Stop 08/20/19 at 16:01; Status DC Sodium Chloride (Normal Saline Flush) 3 ml QSHIFT PRN IV AFTER MEDS AND BLOOD DRAWS; Start 08/20/19 at 17:15 Sodium Chloride 1,000 ml @ 60 mls/hr [id number] IV Last administered on 08/20/19at 19:34; Start 08/20/19 at 17:08; Stop 08/20/19 at 23:07; Status DC Aspirin (Ecotrin) 81 mg [id number] PO Last administered on 08/22/19at 08:10; Start 08/21/19 at 08:00 Acetaminophen (Tylenol) 650 mg PRN Q6HRS PRN PO MILD PAIN 1-3; Start 08/20/19 at 17:15 Fentanyl Citrate (Fentanyl 2ml Vial) 50 mcg PRN Q1HR PRN IV Severe pain; Start 08/20/19 at 17:15 Nitroglycerin (Nitrostat) 0.4 mg PRN Q5MIN PRN SL CHEST PAIN; Start 08/20/19 at 17:15 Ticagrelor (Brilinta) 180 mg 1X ONCE PO Last administered on 08/20/19at 18:45; Start 08/20/19 at 17:30; Stop 08/20/19 at 17:31; Status DC Ticagrelor (Brilinta) 90 mg BID PO Last administered on 08/22/19at 08:10; Start 08/21/19 at 09:00 Potassium Chloride (Klor-Con) 20 meq 1X ONCE PO Last administered on 08/21/19at 10:33; Start 08/21/19 at 09:45; Stop 08/21/19 at 09:46; Status DC Zolpidem Tartrate (Ambien) 5 mg HS PO Last administered on 08/21/19at 20:25; Start 08/21/19 at 21:00 Tirofiban/Sodium Chloride 250 ml @ 0 mls/hr CONT PRN IV PER PROTOCOL Last administered on 08/22/19at 08:19; Start 08/21/19 at 17:00 Active Scripts Active Reported Tums (Calcium Carbonate) 200 Mg Tab.chew 500 Mg PO PRN BID PRN NITROGLYCERIN SubLingual (Nitroglycerin) 0.4 Mg Tab.subl 1 Tab SL UD Metoprolol Tartrate 25 Mg Tablet 1 Tab PO BID Bismatrol (Bismuth Subsalicylate) 262 Mg Tab.chew 262 Mg PO DAILY Lipitor (Atorvastatin Calcium) 40 Mg Tablet 1 Tab PO QHS Aspirin 81 Mg Tab.chew 1 Tab PO DAILY Vitals/I & O Vital Sign - Last 24 Hours 08/21/19 08/21/19 08/21/19 08/21/19 15:00 16:00 16:00 17:00 Temp 98.2 98.2 Pulse 72 76 76 Resp 11 16 11 B/P (MAP) 135/70 (91) 121/71 (88) 127/81 (96) Pulse Ox 97 96 97 O2 Delivery Room Air Room Air Room Air Room Air 08/21/19 08/21/19 08/21/19 08/21/19 18:00 19:00 20:00 20:00 Temp 98.8 98.8 Pulse 83 77 81 Resp 14 15 9 B/P (MAP) 125/74 (91) 135/69 (91) 150/77 (101) Pulse Ox 94 95 97 O2 Delivery Room Air Room Air Room Air Room Air 08/21/19 08/21/19 08/21/19 08/21/19 20:25 21:00 22:00 23:00 Pulse 84 81 86 88 Resp 16 13 17 B/P (MAP) 150/77 112/67 (82) 133/75 (94) 110/86 (94) Pulse Ox 93 95 97 O2 Delivery Room Air Room Air Room Air 08/22/19 08/22/19 08/22/19 08/22/19 00:00 00:00 01:00 02:00 Temp 98.7 98.7 Pulse 90 91 79 Resp 14 17 15 B/P (MAP) 97/58 (71) 112/71 (85) 107/66 (80) Pulse Ox 93 91 91 O2 Delivery Room Air Room Air Room Air Room Air 08/22/19 08/22/19 08/22/19 08/22/19 03:00 04:00 04:00 05:00 Temp 98.8 98.8 Pulse 81 77 93 Resp 16 18 25 B/P (MAP) 113/74 (87) 115/72 (86) 140/81 (100) Pulse Ox 91 95 93 O2 Delivery Room Air Room Air Room Air Room Air 08/22/19 08/22/19 08/22/19 08/22/19 06:00 07:00 08:00 08:00 Pulse 68 80 72 Resp 26 18 17 B/P (MAP) 130/79 (96) 115/81 (92) 140/87 (104) Pulse Ox 94 94 94 O2 Delivery Room Air Room Air Room Air Room Air 08/22/19 08/22/19 08/22/19 08/22/19 08:10 09:00 10:00 11:00 Pulse 76 102 86 Resp 15 25 14 B/P (MAP) 140/87 134/65 (88) 117/67 (84) 117/61 (79) Pulse Ox 93 100 96 O2 Delivery Room Air Room Air Room Air 08/22/19 08/22/19 08/22/19 12:00 12:00 13:00 Temp 98.2 98.2 Pulse 76 72 Resp 19 16 B/P (MAP) 113/68 (83) 127/79 (95) Pulse Ox 94 95 O2 Delivery Room Air Room Air Room Air Intake and Output 08/21/19 08/21/19 08/22/19 15:00 23:00 07:00 Intake Total 480 ml 723.3 ml 630.1 ml Output Total 1200 ml 1675 ml 0 ml Balance -720 ml -951.7 ml 630.1 ml YASEMIN ALBERTO MD Aug 22, 2019 14:35
--- NOTE | 2019-08-22 14:55 | PDOC ---
PROGRESS NOTES Subjective Subjective Patient seen and examined Objective Objective Vital Signs Date Time Temp Pulse Resp B/P (MAP) Pulse Ox O2 Delivery O2 Flow Rate FiO2 08/22/19 13:00 72 16 127/79 (95) 95 Room Air 08/22/19 12:00 98.2 98.2 08/21/19 05:00 2.0 Intake and Output 08/22/19 07:00 Intake Total 1833.4 ml Output Total 2875 ml Balance -1041.6 ml Intake Oral 720 ml IV Total 1113.4 ml Output Urine Total 2875 ml Physical Exam Abdomen: Normal bowel sounds Heart: Regular rate General: No acute distress Lungs: Clear to auscultation Assessment Assessment Problems Medical Problems: (1) Chest pain Status: Acute 1. Non-ST elevated myocardial infarction. Peak troponin of 0.7. Catheterization friday with severe RCA lesion with heavy thrombus burden. Deferred intervention until Friday. Continue treatment with heparin, 2B3A inhibitor and platelet inhibitors. Remains pain-free. 2. Hypertension. Continue IV nitroglycerin. 3. Hyperlipidemia. Continue statin. Comment Review of Relevant I have reviewed the following items hernan (where applicable) has been applied. Labs Laboratory Tests Test 08/20/19 19:00 08/21/19 01:25 08/21/19 08:20 08/21/19 14:20 Heparin Anti-Xa Act, Unfractionated 0.63 IU/mL (0.30-0.70) 0.58 IU/mL (0.30-0.70) 0.40 IU/mL (0.30-0.70) 0.26 IU/mL (0.30-0.70) White Blood Count 6.2 x10^3/uL (4.0-11.0) Red Blood Count 4.75 x10^6/uL (4.30-5.70) Hemoglobin 14.4 g/dL (13.0-17.5) Hematocrit 43.1 % (39.0-53.0) Mean Corpuscular Volume 91 fL (79-100) Mean Corpuscular Hemoglobin 30 pg (25-35) Mean Corpuscular Hemoglobin Concent 33 g/dL (31-37) Red Cell Distribution Width 13.8 % (11.5-14.5) Platelet Count 185 x10^3/uL (140-400) Neutrophils (%) (Auto) 48 % (31-73) Lymphocytes (%) (Auto) 41 % (24-48) Monocytes (%) (Auto) 8 % (0-9) Eosinophils (%) (Auto) 2 % (0-3) Basophils (%) (Auto) 1 % (0-3) Neutrophils # (Auto) 3.0 x10^3/uL (1.8-7.7) Lymphocytes # (Auto) 2.6 x10^3/uL (1.0-4.8) Monocytes # (Auto) 0.5 x10^3/uL (0.0-1.1) Eosinophils # (Auto) 0.1 x10^3/uL (0.0-0.7) Basophils # (Auto) 0.0 x10^3/uL (0.0-0.2) Sodium Level 141 mmol/L (136-145) Potassium Level 3.8 mmol/L (3.5-5.1) Chloride Level 106 mmol/L (98-107) Carbon Dioxide Level 28 mmol/L (21-32) Anion Gap 7 (6-14) Blood Urea Nitrogen 10 mg/dL (8-26) Creatinine 1.0 mg/dL (0.7-1.3) Estimated GFR (Cockcroft-Gault) 97.8 Glucose Level 95 mg/dL (70-99) Calcium Level 8.8 mg/dL (8.5-10.1) Magnesium Level 2.0 mg/dL (1.8-2.4) Test 08/21/19 20:40 08/22/19 00:25 08/22/19 05:30 Heparin Anti-Xa Act, Unfractionated 0.44 IU/mL (0.30-0.70) 0.44 IU/mL (0.30-0.70) 0.51 IU/mL (0.30-0.70) White Blood Count 5.9 x10^3/uL (4.0-11.0) Red Blood Count 4.63 x10^6/uL (4.30-5.70) Hemoglobin 14.0 g/dL (13.0-17.5) Hematocrit 42.8 % (39.0-53.0) Mean Corpuscular Volume 92 fL (79-100) Mean Corpuscular Hemoglobin 30 pg (25-35) Mean Corpuscular Hemoglobin Concent 33 g/dL (31-37) Red Cell Distribution Width 14.0 % (11.5-14.5) Platelet Count 194 x10^3/uL (140-400) Neutrophils (%) (Auto) 50 % (31-73) Lymphocytes (%) (Auto) 40 % (24-48) Monocytes (%) (Auto) 7 % (0-9) Eosinophils (%) (Auto) 2 % (0-3) Basophils (%) (Auto) 0 % (0-3) Neutrophils # (Auto) 3.0 x10^3/uL (1.8-7.7) Lymphocytes # (Auto) 2.3 x10^3/uL (1.0-4.8) Monocytes # (Auto) 0.4 x10^3/uL (0.0-1.1) Eosinophils # (Auto) 0.1 x10^3/uL (0.0-0.7) Basophils # (Auto) 0.0 x10^3/uL (0.0-0.2) Sodium Level 143 mmol/L (136-145) Potassium Level 4.0 mmol/L (3.5-5.1) Chloride Level 107 mmol/L (98-107) Carbon Dioxide Level 26 mmol/L (21-32) Anion Gap 10 (6-14) Blood Urea Nitrogen 10 mg/dL (8-26) Creatinine 1.1 mg/dL (0.7-1.3) Estimated GFR (Cockcroft-Gault) 87.6 BUN/Creatinine Ratio 9 (6-20) Glucose Level 176 mg/dL (70-99) Calcium Level 8.9 mg/dL (8.5-10.1) Total Bilirubin 0.2 mg/dL (0.2-1.0) Aspartate Amino Transf (AST/SGOT) 61 U/L (15-37) Alanine Aminotransferase (ALT/SGPT) 39 U/L (16-63) Alkaline Phosphatase 88 U/L (46-116) Total Protein 6.5 g/dL (6.4-8.2) Albumin 3.4 g/dL (3.4-5.0) Albumin/Globulin Ratio 1.1 (1.0-1.7) Laboratory Tests Test 08/21/19 20:40 08/22/19 00:25 08/22/19 05:30 Heparin Anti-Xa Act, Unfractionated 0.44 IU/mL (0.30-0.70) 0.44 IU/mL (0.30-0.70) 0.51 IU/mL (0.30-0.70) White Blood Count 5.9 x10^3/uL (4.0-11.0) Red Blood Count 4.63 x10^6/uL (4.30-5.70) Hemoglobin 14.0 g/dL (13.0-17.5) Hematocrit 42.8 % (39.0-53.0) Mean Corpuscular Volume 92 fL (79-100) Mean Corpuscular Hemoglobin 30 pg (25-35) Mean Corpuscular Hemoglobin Concent 33 g/dL (31-37) Red Cell Distribution Width 14.0 % (11.5-14.5) Platelet Count 194 x10^3/uL (140-400) Neutrophils (%) (Auto) 50 % (31-73) Lymphocytes (%) (Auto) 40 % (24-48) Monocytes (%) (Auto) 7 % (0-9) Eosinophils (%) (Auto) 2 % (0-3) Basophils (%) (Auto) 0 % (0-3) Neutrophils # (Auto) 3.0 x10^3/uL (1.8-7.7) Lymphocytes # (Auto) 2.3 x10^3/uL (1.0-4.8) Monocytes # (Auto) 0.4 x10^3/uL (0.0-1.1) Eosinophils # (Auto) 0.1 x10^3/uL (0.0-0.7) Basophils # (Auto) 0.0 x10^3/uL (0.0-0.2) Sodium Level 143 mmol/L (136-145) Potassium Level 4.0 mmol/L (3.5-5.1) Chloride Level 107 mmol/L (98-107) Carbon Dioxide Level 26 mmol/L (21-32) Anion Gap 10 (6-14) Blood Urea Nitrogen 10 mg/dL (8-26) Creatinine 1.1 mg/dL (0.7-1.3) Estimated GFR (Cockcroft-Gault) 87.6 BUN/Creatinine Ratio 9 (6-20) Glucose Level 176 mg/dL (70-99) Calcium Level 8.9 mg/dL (8.5-10.1) Total Bilirubin 0.2 mg/dL (0.2-1.0) Aspartate Amino Transf (AST/SGOT) 61 U/L (15-37) Alanine Aminotransferase (ALT/SGPT) 39 U/L (16-63) Alkaline Phosphatase 88 U/L (46-116) Total Protein 6.5 g/dL (6.4-8.2) Albumin 3.4 g/dL (3.4-5.0) Albumin/Globulin Ratio 1.1 (1.0-1.7) Medications Current Medications Sodium Chloride 1,000 ml @ 1,000 mls/hr 1X ONCE IV Last administered on 08/19/19at 16:29; Start 08/19/19 at 16:15; Stop 08/19/19 at 17:14; Status DC Aspirin (Children'S Aspirin) 324 mg 1X ONCE PO ; Start 08/19/19 at 16:15; Stop 08/19/19 at 16:14; Status DC Nitroglycerin (Nitrostat) 0.4 mg PRN Q5MIN STAT SL ; Start 08/19/19 at 16:07; Stop 08/19/19 at 16:14; Status DC Morphine Sulfate (Morphine Sulfate) 4 mg 1X ONCE IV Last administered on 08/19/19at 16:29; Start 08/19/19 at 16:30; Stop 08/19/19 at 16:31; Status DC Ondansetron HCl (Zofran) 4 mg PRN Q8HRS PRN IVP NAUSEA/VOMITING; Start 08/19/19 at 17:30; Stop 08/19/19 at 20:45; Status DC Heparin Sodium (Porcine) (Heparin Sodium) 4,000 unit 1X ONCE IV Last admi nistered on 08/19/19at 18:50; Start 08/19/19 at 18:43; Stop 08/19/19 at 18:46; Status DC Heparin Sodium/ Dextrose 500 ml @ 20 mls/hr CONT PRN IV PER PROTOCOL Last administered on 08/19/19at 18:51; Start 08/19/19 at 18:45; Stop 08/20/19 at 15:59; Status DC Heparin Sodium (Porcine) (Heparin Sodium) 2,850 unit PRN Q6HRS PRN IV FOR UFH LEVEL LESS THAN 0.2; Start 08/19/19 at 18:43 Ondansetron HCl (Zofran) 4 mg PRN Q6HRS PRN IVP NAUSEA/VOMITING; Start 08/19/19 at 20:45 Aspirin (Children'S Aspirin) 81 mg DAILY PO Last administered on 08/20/19at 09:22; Start 08/20/19 at 09:00; Stop 08/20/19 at 17:14; Status DC Atorvastatin Calcium (Lipitor) 40 mg QHS PO Last administered on 08/21/19at 20:25; Start 08/19/19 at 21:00 Calcium Carbonate/ Glycine (Tums) 500 mg PRN BID PRN PO INDIGESTION; Start 08/19/19 at 20:45 Metoprolol Tartrate (Lopressor) 25 mg BID PO Last administered on 08/22/19at 08: 10; Start 08/19/19 at 21:00 Nitroglycerin (Nitrostat) 0.4 mg PRN Q5MIN PRN SL chest pain; Start 08/19/19 at 20:45; Stop 08/21/19 at 08:39; Status DC Bismuth Subsalicylate (Pepto-Bismol) 262 mg DAILY PO ; Start 08/20/19 at 09:00 Morphine Sulfate (Morphine Sulfate) 4 mg PRN Q2HR PRN IV MODERATE PAIN Last administered on 08/21/19at 00:04; Start 08/19/19 at 20:45 Pantoprazole Sodium (PROTONIX VIAL for IV PUSH) 40 mg 1X ONCE IVP Last administered on 08/19/19at 22:46; Start 08/19/19 at 21:00; Stop 08/19/19 at 21:01; Status DC Insulin Human Lispro (HumaLOG) 0-5 UNITS TIDWMEALS SQ ; Start 08/20/19 at 08:00; Stop 08/20/19 at 11:41; Status DC Dextrose (Dextrose 50%-Water Syringe) 12.5 gm PRN Q15MIN PRN IV SEE COMMENTS; Start 08/19/19 at 21:00; Stop 08/20/19 at 11:41; Status DC Nitroglycerin/ Dextrose 250 ml @ 1.5 mls/hr CONT PRN IV SEE I/O RECORD Last administered on 08/19/19at 23:26; Start 08/19/19 at 23:00 Acetaminophen (Tylenol) 650 mg PRN Q6HRS PRN PO PAIN; Start 08/20/19 at 00:15; Stop 08/20/19 at 17:15; Status DC Info (Anti-Coagulation Monitoring By Pharmacy) 1 each PRN DAILY PRN MC SEE COMMENTS Last administered on 08/22/19at 10:49; Start 08/20/19 at 13:30 Lidocaine HCl (Lidocaine 1% 20ml Vial) 20 ml STK-MED ONCE .ROUTE ; Start 08/20/19 at 14:07; Stop 08/20/19 at 14:07; Status DC Heparin Sodium/ Sodium Chloride 1,000 ml @ As Directed STK-MED ONCE .ROUTE ; Start 08/20/19 at 14:07; Stop 08/20/19 at 14:07; Status DC Iohexol (Omnipaque 300 Mg/ml) 100 ml STK-MED ONCE .ROUTE ; Start 08/20/19 at 14:19; Stop 08/20/19 at 14:20; Status DC Fentanyl Citrate (Fentanyl 2ml Vial) 100 mcg STK-MED ONCE .ROUTE ; Start 08/20/19 at 14:21; Stop 08/20/19 at 14:22; Status DC Midazolam HCl (Versed) 2 mg STK-MED ONCE .ROUTE ; Start 08/20/19 at 14:22; Stop 08/20/19 at 14:22; Status DC Midazolam HCl (Versed) 2 mg STK-MED ONCE .ROUTE ; Start 08/20/19 at 14:53; Stop 08/20/19 at 14:53; Status DC Heparin Sodium/ Dextrose 500 ml @ As Directed STK-MED ONCE IV ; Start 08/20/19 at 15:37; Stop 08/20/19 at 15:37; Status DC Heparin Sodium (Porcine) (Heparin Sodium) 10,000 unit STK-MED ONCE .ROUTE ; Start 08/20/19 at 15:37; Stop 08/20/19 at 15:38; Status DC Tirofiban/Sodium Chloride 250 ml @ As Directed STK-MED ONCE IV ; Start 08/20/19 at 15:48; Stop 08/20/19 at 15:48; Status DC Heparin Sodium/ Dextrose 500 ml @ 0 mls/hr CONT PRN IV PER PROTOCOL Last administered on 08/22/19at 02:33; Start 08/20/19 at 15:45 Heparin Sodium (Porcine) (Heparin Sodium) 3,050 unit PRN Q6HRS PRN IV FOR UFH LEVEL LESS THAN 0.2; Start 08/20/19 at 15:45 Heparin Sodium (Porcine) (Heparin Sodium) 3,000 unit 1X ONCE IV Last administered on 08/20/19at 16:03; Start 08/20/19 at 15:45; Stop 08/20/19 at 16:00; Status DC Tirofiban/Sodium Chloride 250 ml @ 0 mls/hr CONT PRN IV SEE COMMENTS Last administered on 08/21/19at 09:37; Start 08/20/19 at 15:45; Stop 08/21/19 at 09:44; Status DC Heparin Sodium/ Sodium Chloride (HEPARIN for ARTERIAL LINE FLUSH) 1,000 unit 1X ONCE IART Last administered on 08/20/19at 16:04; Start 08/20/19 at 16:00; Stop 08/20/19 at 16:01; Status DC Heparin Sodium/ Sodium Chloride (HEPARIN for ARTERIAL LINE FLUSH) 1,000 unit 1X ONCE IART Last administered on 08/20/19 16:05; Start 08/20/19 at 16:00; Stop 08/20/19 at 16:01; Status DC Midazolam HCl (Versed) 2 mg 1X ONCE IV Last administered on 08/20/19 16:06; Start 08/20/19 at 16:00; Stop 08/20/19 at 16:01; Status DC Fentanyl Citrate (Fentanyl 2ml Vial) 100 mcg 1X ONCE IV Last administered on 08/20/19 16:06; Start 08/20/19 at 16:00; Stop 08/20/19 at 16:01; Status DC Iohexol (Omnipaque 300 Mg/ml) 100 ml 1X ONCE IART Last administered on 08/20/19 16:05; Start 08/20/19 at 16:00; Stop 08/20/19 at 16:01; Status DC Lidocaine HCl (Lidocaine 1% 20ml Vial) 20 ml 1X ONCE INJ Last administered on 08/20/19 16:05; Start 08/20/19 at 16:00; Stop 08/20/19 at 16:01; Status DC Sodium Chloride (Normal Saline Flush) 3 ml QSHIFT PRN IV AFTER MEDS AND BLOOD DRAWS; Start 08/20/19 at 17:15 Sodium Chloride 1,000 ml @ 60 mls/hr [id number] IV Last administered on 08/20/19at 19:34; Start 08/20/19 at 17:08; Stop 08/20/19 at 23:07; Status DC Aspirin (Ecotrin) 81 mg DAILYWBKFT PO Last administered on 08/22/19at 08:10; Start 08/21/19 at 08:00 Acetaminophen (Tylenol) 650 mg PRN Q6HRS PRN PO MILD PAIN 1-3; Start 08/20/19 at 17:15 Fentanyl Citrate (Fentanyl 2ml Vial) 50 mcg PRN Q1HR PRN IV Severe pain; Start 08/20/19 at 17:15 Nitroglycerin (Nitrostat) 0.4 mg PRN Q5MIN PRN SL CHEST PAIN; Start 08/20/19 at 17:15 Ticagrelor (Brilinta) 180 mg 1X ONCE PO Last administered on 08/20/19at 18:45; Start 08/20/19 at 17:30; Stop 08/20/19 at 17:31; Status DC Ticagrelor (Brilinta) 90 mg BID PO Last administered on 08/22/19at 08:10; Start 08/21/19 at 09:00 Potassium Chloride (Klor-Con) 20 meq 1X ONCE PO Last administered on 08/21/19at 10:33; Start 08/21/19 at 09:45; Stop 08/21/19 at 09:46; Status DC Zolpidem Tartrate (Ambien) 5 mg HS PO Last administered on 08/21/19at 20:25; Start 08/21/19 at 21:00 Tirofiban/Sodium Chloride 250 ml @ 0 mls/hr CONT PRN IV PER PROTOCOL Last administered on 08/22/19at 08:19; Start 08/21/19 at 17:00 Active Scripts Active Reported Tums (Calcium Carbonate) 200 Mg Tab.chew 500 Mg PO PRN BID PRN NITROGLYCERIN SubLingual (Nitroglycerin) 0.4 Mg Tab.subl 1 Tab SL UD Metoprolol Tartrate 25 Mg Tablet 1 Tab PO BID Bismatrol (Bismuth Subsalicylate) 262 Mg Tab.chew 262 Mg PO DAILY Lipitor (Atorvastatin Calcium) 40 Mg Tablet 1 Tab PO QHS Aspirin 81 Mg Tab.chew 1 Tab PO DAILY Vitals/I & O Vital Sign - Last 24 Hours 08/21/19 08/21/19 08/21/19 08/21/19 15:00 16:00 16:00 17:00 Temp 98.2 98.2 Pulse 72 76 76 Resp 11 16 11 B/P (MAP) 135/70 (91) 121/71 (88) 127/81 (96) Pulse Ox 97 96 97 O2 Delivery Room Air Room Air Room Air Room Air 08/21/19 08/21/19 08/21/19 08/21/19 18:00 19:00 20:00 20:00 Temp 98.8 98.8 Pulse 83 77 81 Resp 14 15 9 B/P (MAP) 125/74 (91) 135/69 (91) 150/77 (101) Pulse Ox 94 95 97 O2 Delivery Room Air Room Air Room Air Room Air 08/21/19 08/21/19 08/21/19 08/21/19 20:25 21:00 22:00 23:00 Pulse 84 81 86 88 Resp 16 13 17 B/P (MAP) 150/77 112/67 (82) 133/75 (94) 110/86 (94) Pulse Ox 93 95 97 O2 Delivery Room Air Room Air Room Air 08/22/19 08/22/19 08/22/19 08/22/19 00:00 00:00 01:00 02:00 Temp 98.7 98.7 Pulse 90 91 79 Resp 14 17 15 B/P (MAP) 97/58 (71) 112/71 (85) 107/66 (80) Pulse Ox 93 91 91 O2 Delivery Room Air Room Air Room Air Room Air 08/22/19 08/22/19 08/22/19 08/22/19 03:00 04:00 04:00 05:00 Temp 98.8 98.8 Pulse 81 77 93 Resp 16 18 25 B/P (MAP) 113/74 (87) 115/72 (86) 140/81 (100) Pulse Ox 91 95 93 O2 Delivery Room Air Room Air Room Air Room Air 08/22/19 08/22/19 08/22/19 08/22/19 06:00 07:00 08:00 08:00 Pulse 68 80 72 Resp 26 18 17 B/P (MAP) 130/79 (96) 115/81 (92) 140/87 (104) Pulse Ox 94 94 94 O2 Delivery Room Air Room Air Room Air Room Air 08/22/19 08/22/19 08/22/19 08/22/19 08:10 09:00 10:00 11:00 Pulse 76 102 86 Resp 15 25 14 B/P (MAP) 140/87 134/65 (88) 117/67 (84) 117/61 (79) Pulse Ox 93 100 96 O2 Delivery Room Air Room Air Room Air 08/22/19 08/22/19 08/22/19 12:00 12:00 13:00 Temp 98.2 98.2 Pulse 76 72 Resp 19 16 B/P (MAP) 113/68 (83) 127/79 (95) Pulse Ox 94 95 O2 Delivery Room Air Room Air Room Air Intake and Output 08/21/19 08/21/19 08/22/19 15:00 23:00 07:00 Intake Total 480 ml 723.3 ml 630.1 ml Output Total 1200 ml 1675 ml 0 ml Balance -720 ml -951.7 ml 630.1 ml HARISH GONZALEZ MD Aug 22, 2019 14:55
--- NOTE | 2019-08-22 17:10 | CARD ---
MR#: [id number] Date of Study: 08/22/2019 Ordering Physician: HARISH VANN, Referring Physician: HARISH VANN Tech: An Armendariz DANYELL APPROVED REPORT EXAM: Two-dimensional and M-mode echocardiogram with Doppler and color Doppler. Other Information Quality : Average INDICATION Chest Pain RISK FACTORS Hypertension Hyperlipidemia 2D DIMENSIONS RVDd3.1 (2.9-3.5cm)Left Atrium(2D)4.5 (1.6-4.0cm) IVSd1.4 (0.7-1.1cm)Aortic Root(2D)3.6 (2.0-3.7cm) LVDd4.0 (3.9-5.9cm)LVOT Diameter2.4 (1.8-2.4cm) PWd1.7 (0.7-1.1cm)LVDs2.7 (2.5-4.0cm) FS (%) 32.9 %SV44.6 ml LVEF(%)61.9 (>50%) Aortic Valve AoV Peak Wyatt.108.6cm/sAoV VTI19.6cm AO Peak GR.4.7mmHgLVOT Peak Wyatt.103.5cm/s AO Mean GR.2mmHgAVA (VMAX)4.42cm2 Mitral Valve MV E Svtssqcg33.5cm/sMV DECEL [id number] MV A Cawxteuw95.4cm/sE/A Ratio0.9 MV A [id number] Pulmonary Vein S1 Cxpiqmnj54.7cm/sD2 Fveuadzp95.9cm/s PVa [id number] LEFT VENTRICLE The left ventricle is normal size. There is mild concentric left ventricular hypertrophy. The left ve ntricular systolic function is normal and the ejection fraction is within normal range. Ejection frac tion 60-65%. There is normal LV segmental wall motion. RIGHT VENTRICLE The right ventricle is normal size. There is normal right ventricular wall thickness. The right ventr icular systolic function is normal. ATRIA The left atrium size is normal. The right atrium size is normal. The interatrial septum is intact wit h no evidence for an atrial septal defect or patent foramen ovale as noted on 2-D or Doppler imaging. AORTIC VALVE The aortic valve is normal in structure and function. Doppler and Color Flow revealed no significant aortic regurgitation. There is no significant aortic valvular stenosis. MITRAL VALVE The mitral valve is normal in structure and function. There is no evidence of mitral valve prolapse. Doppler and Color Flow revealed no mitral valve regurgitation noted. TRICUSPID VALVE The tricuspid valve is normal in structure and function. Doppler and Color Flow revealed no tricuspid valve regurgitation noted. There is no tricuspid valve stenosis. PULMONIC VALVE The pulmonary valve is normal in structure and function. Doppler and Color Flow revealed no pulmonic valvular regurgitation. GREAT VESSELS The aortic root is borderline normal in size. The IVC is normal in size and collapses >50% with inspi ration. PERICARDIAL EFFUSION There is no evidence of significant pericardial effusion. Critical Notification Critical Value: No <Conclusion> The left ventricle is normal size. The left ventricular systolic function is normal and the ejection fraction is within normal range. E jection fraction 60-65%. There is mild concentric left ventricular hypertrophy. There is no significant aortic valvular stenosis. Doppler and Color Flow revealed no significant aortic regurgitation. Doppler and Color Flow revealed no mitral valve regurgitation noted. Doppler and Color Flow revealed no tricuspid valve regurgitation noted. Signed by : Harish Vann MD Electronically Approved : 08/22/2019 17:09:33
[2019-08-22] MEDS ORDERED: ASPI-630 PO (18:28)
[2019-08-22] MEDS ORDERED: POTA10TA12 PO (18:28)
[2019-08-22] MEDS ORDERED: SIMV40TA18 PO (18:28)
[2019-08-22] MEDS ORDERED: CHOL10003 PO (18:28)
[2019-08-22] MEDS ORDERED: METO75TA PO (18:28)
[2019-08-22] MEDS ORDERED: OMEG1CAP38 PO (18:28)
[2019-08-22] MEDS: ZOLPIDEM 5 MG TABLET. PO SCH (21:41)
[2019-08-22] MEDS: ATORVASTATIN CALCIUM 40 MG TABLET. PO SCH (21:41)
[2019-08-23] VITALS (29 sets, daily range): BP systolic 98–153; BP diastolic 53–90
[2019-08-23 04:48] LABS: HEMATOCRIT 41.2 % (39.0-53.0); HEMOGLOBIN 13.7 g/dL (13.0-17.5); RED BLOOD COUNT 4.5 x10^6/uL (4.30-5.70); RED CELL DISTRIBUTION WIDTH 13.7 % (11.5-14.5); WHITE BLOOD COUNT 6.7 x10^3/uL (4.0-11.0)
[2019-08-23] MEDS: TICAGRELOR 90 MG TABLET. PO SCH ×2 (07:50→20:40)
[2019-08-23] MEDS: ASPIRIN ENTERIC COATED 81 MG TABLET.DR. PO SCH (07:50)
[2019-08-23] MEDS: METOPROLOL TART IMMED RELEASE 25 MG TABLET. PO SCH ×2 (07:51→20:40)
[2019-08-23] MEDS: BISMUTH SUBSALICYLATE 262 MG/15 ML ORAL.SUSP 236ML BOTTLE. PO SCH (07:52)
[2019-08-23] MEDS ORDERED: LIDOCAINE 1% PF 2 ML VIAL. ONE (09:45)
[2019-08-23] MEDS ORDERED: IODIXANOL 320 MG/ML 100 ML VIAL. ONE (09:45)
[2019-08-23] MEDS ORDERED: LIDOCAINE 1% Multi-Dose 20 ML VIAL. ONE (09:55)
[2019-08-23] MEDS ORDERED: fentaNYL PF VIAL 100 MCG/2 ML VIAL ONE (10:27)
[2019-08-23] MEDS ORDERED: MIDAZOLAM HCL/PF 2 MG/2 ML VIAL. ONE (10:27)
[2019-08-23] MEDS ORDERED: BIVALIRUDIN 250 MG VIAL. IV ONE ×2 (10:44→11:00)
[2019-08-23] MEDS: IV NORMAL SALINE 1000ML BAG 1,000 ML IV SCH ×2 (11:00→20:41)
[2019-08-23] MEDS ORDERED: CONTRAST GIVEN. MC PRN (11:00)
[2019-08-23] MEDS ORDERED: MIDAZOLAM HCL/PF 2 MG/2 ML VIAL. IV ONE (11:00)
[2019-08-23] MEDS ORDERED: fentaNYL PF VIAL 100 MCG/2 ML VIAL IV ONE (11:00)
[2019-08-23] MEDS ORDERED: IODIXANOL 320 MG/ML 100 ML VIAL. IART ONE (11:00)
[2019-08-23] MEDS ORDERED: LIDOCAINE 1% Multi-Dose 20 ML VIAL. INJ ONE (11:00)
--- NOTE | 2019-08-23 11:14 | PDOC ---
MODERATE SEDATION ASSESSMENT RISKS/ALTERNATIVES Risks/Alternatives Risks and alternatives of this type of sedation and procedure discussed with: RISK/ALTERNATIVES: Patient H & P ON CHART H & P H & P on chart and reviewed for co-morbid conditions and appropriate labs. H&P ON CHART: Yes STATUS PREG STATUS ASSESSED: N/A MEDS/ALLERGIES REVIEWED Meds/Allergies Reviewed Medications and Allergies including time and route of recently administered narcotics and sedatives. MEDS/ALLERGIES REVIEWED: Yes ASA RATING ASA RATING: III AIRWAY ASSESSMENT Airway Assessment Airway patency, oral function limitations, presence of caps, crowns, dentures, partials, and ability to extend neck assessed. AIRWAY ASSESSMENT: Yes MALLAMPATI SCORE MALLAMPATI SCORE: II PRE-SEDATION ASSESSMENT PRE-SEDATION ASSESSMENT: Yes JARROD JOHN MD Aug 23, 2019 11:14
[2019-08-23] MEDS ORDERED: NITROGLYCERIN SUBLINGUAL 0.4 MG BOTTLE OF 25. SL PRN (11:15)
[2019-08-23] MEDS ORDERED: ACETAMINOPHEN 325 MG TABLET. PO PRN (11:15)
--- NOTE | 2019-08-23 11:45 | CARD ---
MR#: [id number] Date of Study: 08/23/2019 Ordering Physician: HARISH GONZALEZ, Referring Physician: HARISH GONZALEZ, Tech: SYED SLATER RTR APPROVED REPORT Technologist: SYED SLATER RTR Nurse: Brenda Smith R.N. Procedure(s) performed: Left heart catheterization, coronary angiography, successful PCI/drug eluting stents placement to the right coronary artery and also the obtuse marginal branch of left circumflex artery Fluoro time: 10.5 Dose: 25Lert7 Contrast: 104cc Moderate sedation: 51 min RCA Pre ROBINSON 2 Post 3 Circ Pre ROBINSON 3 Post 3 INDICATION The indication(s) include : 44-year-old male who presented with non-STEMI was found to have significa nt lesions involving right coronary artery and the obtuse marginal branch of left circumflex artery o n cardiac catheterization on 08/20/19. Due to heavy thrombus burden in the right coronary artery, he w as placed on heparin and Aggrastat infusions. He presented today for PCI/stent placement.. CSHA Clinical Frailty Scale [facility] Clinical Frailty Scale: Mildly Frail Heart Failure Heart Failure: No PROCEDURE NARRATIVE After explaining the risks, benefits and alternative options, informed consent was obtained from vijay ent. Patient was brought to the cardiac [employer] and his left groin was prepped and draped in the usu al fashion. 20 mL of 2% lidocaine was infiltrated into the skin and subcutaneous tissues for local an esthesia. Arterial access was obtained in the left common femoral artery and a 6 [place] sheath was in serted. 6 [place] JR4 guide catheter was used to measure LVEDP and transaortic gradients. The same cat heter was then used to engage the right coronary artery and selective angiography was performed. This confirmed the previously described 90-95% stenosis involving the proximal to midsegment of the right coronary artery. This was crossed with a 0.014 inch snapp.me Pro water guidewire, dilated with a 2.5 x 15 mm trek balloon and successfully treated with a 2.75 x 15 mm resolute [place] drug-eluting stent. Fol low-up angiorrhaphy showed resolution of the stenosis to 0% with ROBINSON-3 distal flow. Subsequently, the left main coronary artery was engaged with a 6 [place] XB 3.5 guide catheter. Select diana angiography confirmed the previously described 70% stenosis involving the midsegment of the obtus e marginal branch of left circumflex artery. This was directly treated with a 2.5 x 12 mm resolute on yx drug-eluting stent. Follow-up angiography showed resolution of the lesion with ROBINSON-3 distal flow. Patient tolerated the procedure well. Hemostasis in the left groin was achieved using Angio-Seal. Th ere were no immediate complications. Conclusion Successful PCI/drug eluting stents placement to the right coronary artery and also the obtuse margina l branch of left circumflex artery. Recommendations 1. Aspirin 81 mg daily 2. Ticagrelor 90 mg BID for preferably one year 3. Cardiovascular risk factor modification Signed by : Adria Gerardo, Electronically Approved : 08/23/2019 11:44:51
[2019-08-23] MEDS: IV 1/2 NORMAL SALINE 1,000 ML IV SCH ×2 (12:00→22:11)
[2019-08-23] MEDS: MORPHINE SULFATE 4 MG/ML VIAL. IV PRN (12:36)
--- NOTE | 2019-08-23 14:43 | PDOC ---
PROGRESS NOTES Chief Complaint Chief Complaint Chest pain - NSTEMI, heparin GTT, dm2 HTN - will cont BP meds, monitor HLD - cont statin, check fasting lipids CAD - with 2 prior stents obese, BMI 32 History of Present Illness History of Present Illness plan to repreat cardiac cath today, stent x2 cont Aggrastat. pt pain is better, feels well pain better slept much better with ambien Vitals Vitals Vital Signs Date Time Temp Pulse Resp B/P (MAP) Pulse Ox O2 Delivery O2 Flow Rate FiO2 08/23/19 13:00 70 12 122/79 (93) 95 Room Air 08/23/19 11:45 98.2 98.2 08/23/19 11:18 2.0 Physical Exam General: No acute distress Heart: Regular rate Abdomen: Normal bowel sounds Extremities: No cyanosis, No edema Skin: No breakdown Labs LABS Laboratory Tests Test 08/23/19 03:30 08/23/19 08:00 White Blood Count 6.7 x10^3/uL (4.0-11.0) Red Blood Count 4.50 x10^6/uL (4.30-5.70) Hemoglobin 13.7 g/dL (13.0-17.5) Hematocrit 41.2 % (39.0-53.0) Mean Corpuscular Volume 92 fL (79-100) Mean Corpuscular Hemoglobin 30 pg (25-35) Mean Corpuscular Hemoglobin Concent 33 g/dL (31-37) Red Cell Distribution Width 13.7 % (11.5-14.5) Platelet Count 187 x10^3/uL (140-400) Heparin Anti-Xa Act, Unfractionated 0.59 IU/mL (0.30-0.70) Assessment and Plan Assessmemt and Plan Problems Medical Problems: (1) Chest pain Status: Acute Comment Review of Relevant I have reviewed the following items hernan (where applicable) has been applied. Labs Laboratory Tests Test 08/21/19 20:40 08/22/19 00:25 08/22/19 05:30 08/23/19 03:30 Heparin Anti-Xa Act, Unfractionated 0.44 IU/mL (0.30-0.70) 0.44 IU/mL (0.30-0.70) 0.51 IU/mL (0.30-0.70) White Blood Count 5.9 x10^3/uL (4.0-11.0) 6.7 x10^3/uL (4.0-11.0) Red Blood Count 4.63 x10^6/uL (4.30-5.70) 4.50 x10^6/uL (4.30-5.70) Hemoglobin 14.0 g/dL (13.0-17.5) 13.7 g/dL (13.0-17.5) Hematocrit 42.8 % (39.0-53.0) 41.2 % (39.0-53.0) Mean Corpuscular Volume 92 fL (79-100) 92 fL (79-100) Mean Corpuscular Hemoglobin 30 pg (25-35) 30 pg (25-35) Mean Corpuscular Hemoglobin Concent 33 g/dL (31-37) 33 g/dL (31-37) Red Cell Distribution Width 14.0 % (11.5-14.5) 13.7 % (11.5-14.5) Platelet Count 194 x10^3/uL (140-400) 187 x10^3/uL (140-400) Neutrophils (%) (Auto) 50 % (31-73) Lymphocytes (%) (Auto) 40 % (24-48) Monocytes (%) (Auto) 7 % (0-9) Eosinophils (%) (Auto) 2 % (0-3) Basophils (%) (Auto) 0 % (0-3) Neutrophils # (Auto) 3.0 x10^3/uL (1.8-7.7) Lymphocytes # (Auto) 2.3 x10^3/uL (1.0-4.8) Monocytes # (Auto) 0.4 x10^3/uL (0.0-1.1) Eosinophils # (Auto) 0.1 x10^3/uL (0.0-0.7) Basophils # (Auto) 0.0 x10^3/uL (0.0-0.2) Sodium Level 143 mmol/L (136-145) Potassium Level 4.0 mmol/L (3.5-5.1) Chloride Level 107 mmol/L (98-107) Carbon Dioxide Level 26 mmol/L (21-32) Anion Gap 10 (6-14) Blood Urea Nitrogen 10 mg/dL (8-26) Creatinine 1.1 mg/dL (0.7-1.3) Estimated GFR (Cockcroft-Gault) 87.6 BUN/Creatinine Ratio 9 (6-20) Glucose Level 176 mg/dL (70-99) Calcium Level 8.9 mg/dL (8.5-10.1) Total Bilirubin 0.2 mg/dL (0.2-1.0) Aspartate Amino Transf (AST/SGOT) 61 U/L (15-37) Alanine Aminotransferase (ALT/SGPT) 39 U/L (16-63) Alkaline Phosphatase 88 U/L (46-116) Total Protein 6.5 g/dL (6.4-8.2) Albumin 3.4 g/dL (3.4-5.0) Albumin/Globulin Ratio 1.1 (1.0-1.7) Test 08/23/19 08:00 Heparin Anti-Xa Act, Unfractionated 0.59 IU/mL (0.30-0.70) Laboratory Tests Test 08/23/19 03:30 08/23/19 08:00 White Blood Count 6.7 x10^3/uL (4.0-11.0) Red Blood Count 4.50 x10^6/uL (4.30-5.70) Hemoglobin 13.7 g/dL (13.0-17.5) Hematocrit 41.2 % (39.0-53.0) Mean Corpuscular Volume 92 fL (79-100) Mean Corpuscular Hemoglobin 30 pg (25-35) Mean Corpuscular Hemoglobin Concent 33 g/dL (31-37) Red Cell Distribution Width 13.7 % (11.5-14.5) Platelet Count 187 x10^3/uL (140-400) Heparin Anti-Xa Act, Unfractionated 0.59 IU/mL (0.30-0.70) Medications Current Medications Sodium Chloride 1,000 ml @ 1,000 mls/hr 1X ONCE IV Last administered on 08/19/19at 16:29; Start 08/19/19 at 16:15; Stop 08/19/19 at 17:14; Status DC Aspirin (Children'S Aspirin) 324 mg 1X ONCE PO ; Start 08/19/19 at 16:15; Stop 08/19/19 at 16:14; Status DC Nitroglycerin (Nitrostat) 0.4 mg PRN Q5MIN STAT SL ; Start 08/19/19 at 16:07; Stop 08/19/19 at 16:14; Status DC Morphine Sulfate (Morphine Sulfate) 4 mg 1X ONCE IV Last administered on 08/19/19at 16:29; Start 08/19/19 at 16:30; Stop 08/19/19 at 16:31; Status DC Ondansetron HCl (Zofran) 4 mg PRN Q8HRS PRN IVP NAUSEA/VOMITING; Start 08/19/19 at 17:30; Stop 08/19/19 at 20:45; Status DC Heparin Sodium (Porcine) (Heparin Sodium) 4,000 unit 1X ONCE IV Last administered on 08/19/19at 18:50; Start 08/19/19 at 18:43; Stop 08/19/19 at 18:46; Status DC Heparin Sodium/ Dextrose 500 ml @ 20 mls/hr CONT PRN IV PER PROTOCOL Last administered on 08/19/19at 18:51; Start 08/19/19 at 18:45; Stop 08/20/19 at 15:59; Status DC Heparin Sodium (Porcine) (Heparin Sodium) 2,850 unit PRN Q6HRS PRN IV FOR UFH LEVEL LESS THAN 0.2; Start 08/19/19 at 18:43 Ondansetron HCl (Zofran) 4 mg PRN Q6HRS PRN IVP NAUSEA/VOMITING; Start 08/19/19 at 20:45 Aspirin (Children'S Aspirin) 81 mg DAILY PO Last administered on 08/20/19at 09:22; Start 08/20/19 at 09:00; Stop 08/20/19 at 17:14; Status DC Atorvastatin Calcium (Lipitor) 40 mg QHS PO Last administered on 08/22/19at 21:41; Start 08/19/19 at 21:00 Calcium Carbonate/ Glycine (Tums) 500 mg PRN BID PRN PO INDIGESTION; Start 08/19/19 at 20:45 Metoprolol Tartrate (Lopressor) 25 mg BID PO Last administered on 08/23/19at 07:51; Start 08/19/19 at 21:00 Nitroglycerin (Nitrostat) 0.4 mg PRN Q5MIN PRN SL chest pain; Start 08/19/19 at 20:45; Stop 08/21/19 at 08:39; Status DC Bismuth Subsalicylate (Pepto-Bismol) 262 mg DAILY PO ; Start 08/20/19 at 09:00; Stop 08/23/19 at 12:48; Status DC Morphine Sulfate (Morphine Sulfate) 4 mg PRN Q2HR PRN IV MODERATE PAIN Last administered on 08/23/19at 12:36; Start 08/19/19 at 20:45 Pantoprazole Sodium (PROTONIX VIAL for IV PUSH) 40 mg 1X ONCE IVP Last administered on 08/19/19at 22:46; Start 08/19/19 at 21:00; Stop 08/19/19 at 21:01; Status DC Insulin Human Lispro (HumaLOG) 0-5 UNITS TIDWMEALS SQ ; Start 08/20/19 at 08:00; Stop 08/20/19 at 11:41; Status DC Dextrose (Dextrose 50%-Water Syringe) 12.5 gm PRN Q15MIN PRN IV SEE COMMENTS; Start 08/19/19 at 21:00; Stop 08/20/19 at 11:41; Status DC Nitroglycerin/ Dextrose 250 ml @ 1.5 mls/hr CONT PRN IV SEE I/O RECORD Last administered on 08/19/19at 23:26; Start 08/19/19 at 23:00 Acetaminophen (Tylenol) 650 mg PRN Q6HRS PRN PO PAIN; Start 08/20/19 at 00:15; Stop 08/20/19 at 17:15; Status DC Info (Anti-Coagulation Monitoring By Pharmacy) 1 each PRN DAILY PRN MC SEE COMMENTS Last administered on 08/22/19at 10:49; Start 08/20/19 at 13:30 Lidocaine HCl (Lidocaine 1% 20ml Vial) 20 ml STK-MED ONCE .ROUTE ; Start 08/20/19 at 14:07; Stop 08/20/19 at 14:07; Status DC Heparin Sodium/ Sodium Chloride 1,000 ml @ As Directed STK-MED ONCE .ROUTE ; Start 08/20/19 at 14:07; Stop 08/20/19 at 14:07; Status DC Iohexol (Omnipaque 300 Mg/ml) 100 ml STK-MED ONCE .ROUTE ; Start 08/20/19 at 14:19; Stop 08/20/19 at 14:20; Status DC Fentanyl Citrate (Fentanyl 2ml Vial) 100 mcg STK-MED ONCE .ROUTE ; Start 08/20/19 at 14:21; Stop 08/20/19 at 14:22; Status DC Midazolam HCl (Versed) 2 mg STK-MED ONCE .ROUTE ; Start 08/20/19 at 14:22; Stop 08/20/19 at 14:22; Status DC Midazolam HCl (Versed) 2 mg STK-MED ONCE .ROUTE ; Start 08/20/19 at 14:53; Stop 08/20/19 at 14:53; Status DC Heparin Sodium/ Dextrose 500 ml @ As Directed STK-MED ONCE IV ; Start 08/20/19 at 15:37; Stop 08/20/19 at 15:37; Status DC Heparin Sodium (Porcine) (Heparin Sodium) 10,000 unit STK-MED ONCE .ROUTE ; Start 08/20/19 at 15:37; Stop 08/20/19 at 15:38; Status DC Tirofiban/Sodium Chloride 250 ml @ As Directed STK-MED ONCE IV ; Start 08/20/19 at 15:48; Stop 08/20/19 at 15:48; Status DC Heparin Sodium/ Dextrose 500 ml @ 0 mls/hr CONT PRN IV PER PROTOCOL Last administered on 08/22/19at 18:40; Start 08/20/19 at 15:45 Heparin Sodium (Porcine) (Heparin Sodium) 3,050 unit PRN Q6HRS PRN IV FOR UFH LEVEL LESS THAN 0.2; Start 08/20/19 at 15:45 Heparin Sodium (Porcine) (Heparin Sodium) 3,000 unit 1X ONCE IV Last administered on 08/20/19at 16:03; Start 08/20/19 at 15:45; Stop 08/20/19 at 16:00; Status DC Tirofiban/Sodium Chloride 250 ml @ 0 mls/hr CONT PRN IV SEE COMMENTS Last administered on 08/21/19at 09:37; Start 08/20/19 at 15:45; Stop 08/21/19 at 09:44; Status DC Heparin Sodium/ Sodium Chloride (HEPARIN for ARTERIAL LINE FLUSH) 1,000 unit 1X ONCE IART Last administered on 08/20/19at 16:04; Start 08/20/19 at 16:00; Stop 08/20/19 at 16:01; Status DC Heparin Sodium/ Sodium Chloride (HEPARIN for ARTERIAL LINE FLUSH) 1,000 unit 1X ONCE IART Last administered on 08/20/19at 16:05; Start 08/20/19 at 16:00; Stop 08/20/19 at 16:01; Status DC Midazolam HCl (Versed) 2 mg 1X ONCE IV Last administered on 08/20/19at 16:06; Start 08/20/19 at 16:00; Stop 08/20/19 at 16:01; Status DC Fentanyl Citrate (Fentanyl 2ml Vial) 100 mcg 1X ONCE IV Last administered on 08/20/19 16:06; Start 08/20/19 at 16:00; Stop 08/20/19 at 16:01; Status DC Iohexol (Omnipaque 300 Mg/ml) 100 ml 1X ONCE IART Last administered on 08/20/19 16:05; Start 08/20/19 at 16:00; Stop 08/20/19 at 16:01; Status DC Lidocaine HCl (Lidocaine 1% 20ml Vial) 20 ml 1X ONCE INJ Last administered on 08/20/19 16:05; Start 08/20/19 at 16:00; Stop 08/20/19 at 16:01; Status DC Sodium Chloride (Normal Saline Flush) 3 ml QSHIFT PRN IV AFTER MEDS AND BLOOD DRAWS; Start 08/20/19 at 17:15 Sodium Chloride 1,000 ml @ 60 mls/hr [id number] IV Last administered on 08/20/19at 19:34; Start 08/20/19 at 17:08; Stop 08/20/19 at 23:07; Status DC Aspirin (Ecotrin) 81 mg [id number] PO Last administered on 08/23/19at 07:50; Start 08/21/19 at 08:00 Acetaminophen (Tylenol) 650 mg PRN Q6HRS PRN PO MILD PAIN 1-3; Start 08/20/19 at 17:15; Stop 08/23/19 at 11:16; Status DC Fentanyl Citrate (Fentanyl 2ml Vial) 50 mcg PRN Q1HR PRN IV Severe pain; Start 08/20/19 at 17:15 Nitroglycerin (Nitrostat) 0.4 mg PRN Q5MIN PRN SL CHEST PAIN; Start 08/20/19 at 17:15 Ticagrelor (Brilinta) 180 mg 1X ONCE PO Last administered on 08/20/19at 18:45; Start 08/20/19 at 17:30; Stop 08/20/19 at 17:31; Status DC Ticagrelor (Brilinta) 90 mg BID PO Last administered on 08/23/19at 07:50; Start 08/21/19 at 09:00 Potassium Chloride (Klor-Con) 20 meq 1X ONCE PO Last administered on 08/21/19at 10:33; Start 08/21/19 at 09:45; Stop 08/21/19 at 09:46; Status DC Zolpidem Tartrate (Ambien) 5 mg HS PO Last administered on 08/22/19at 21:41; Start 08/21/19 at 21:00 Tirofiban/Sodium Chloride 250 ml @ 0 mls/hr CONT PRN IV PER PROTOCOL Last administered on 08/22/19at 19:44; Start 08/21/19 at 17:00 Sodium Chloride 1,000 ml @ 60 mls/hr [id number] IV Last administered on 08/23/19at 11:00; Start 08/23/19 at 08:00 Iodixanol (Visipaque 320) 100 ml STK-MED ONCE .ROUTE ; Start 08/23/19 at 09:45; Stop 08/23/19 at 09:45; Status DC Lidocaine HCl (Xylocaine-Mpf 1% 2ml Vial) 2 ml STK-MED ONCE .ROUTE ; Start 08/23/19 at 09:45; Stop 08/23/19 at 09:45; Status DC Heparin Sodium/ Sodium Chloride 500 ml @ As Directed STK-MED ONCE .ROUTE ; Start 08/23/19 at 09:45; Stop 08/23/19 at 09:45; Status DC Lidocaine HCl (Lidocaine 1% 20ml Vial) 20 ml STK-MED ONCE .ROUTE ; Start 08/23/19 at 09:55; Stop 08/23/19 at 09:56; Status DC Fentanyl Citrate (Fentanyl 2ml Vial) 100 mcg STK-MED ONCE .ROUTE ; Start 08/23/19 at 10:27; Stop 08/23/19 at 10:27; Status DC Midazolam HCl (Versed) 2 mg STK-MED ONCE .ROUTE ; Start 08/23/19 at 10:27; Stop 08/23/19 at 10:28; Status DC Bivalirudin (Angiomax) 250 mg STK-MED ONCE IV ; Start 08/23/19 at 10:44; Stop 08/23/19 at 10:45; Status DC Heparin Sodium/ Sodium Chloride (HEPARIN for ARTERIAL LINE FLUSH) 1,000 unit 1X ONCE IART Last administered on 08/23/19at 11:13; Start 08/23/19 at 11:00; Stop 08/23/19 at 11:03; Status DC Midazolam HCl (Versed) 2 mg 1X ONCE IV Last administered on 08/23/19at 11:15; Start 08/23/19 at 11:00; Stop 08/23/19 at 11:03; Status DC Fentanyl Citrate (Fentanyl 2ml Vial) 100 mcg 1X ONCE IV Last administered on 08/23/19at 11:14; Start 08/23/19 at 11:00; Stop 08/23/19 at 11:03; Status DC Iodixanol (Visipaque 320) 100 ml 1X ONCE IART Last administered on 08/23/19at 11:14; Start 08/23/19 at 11:00; Stop 08/23/19 at 11:03; Status DC Bivalirudin (Angiomax) 250 mg 1X ONCE IV Last administered on 08/23/19at 11:13; Start 08/23/19 at 11:00; Stop 08/23/19 at 11:03; Status DC Lidocaine HCl (Lidocaine 1% 20ml Vial) 20 ml 1X ONCE INJ Last administered on 08/23/19at 11:13; Start 08/23/19 at 11:00; Stop 08/23/19 at 11:03; Status DC Info (CONTRAST GIVEN -- Rx MONITORING) 1 each PRN DAILY PRN MC SEE COMMENTS; Start 08/23/19 at 11:00; Stop 08/25/19 at 10:59 Sodium Chloride 1,000 ml @ 75 mls/hr [id number] IV ; Start 08/23/19 at 12:00 Acetaminophen (Tylenol) 650 mg PRN Q6HRS PRN PO MILD PAIN / TEMP; Start 08/23/19 at 11:15 Nitroglycerin (Nitrostat) 0.4 mg PRN Q5MIN PRN SL CHEST PAIN; Start 08/23/19 at 11:15; Status UNV Cyclobenzaprine HCl (Flexeril) 10 mg PRN Q6HRS PRN PO MUSCLE SPASMS; Start 08/23/19 at 14:45; Status UNV Lorazepam (Ativan Inj) 1 mg 1X ONCE IVP ; Start 08/23/19 at 14:45; Stop 08/23/19 at 14:46; Status UNV Active Scripts Active Vitals/I & O Vital Sign - Last 24 Hours 08/22/19 08/22/19 08/22/19 08/22/19 15:00 16:00 16:00 17:00 Temp 98.5 98.5 Pulse 74 74 74 Resp 17 12 13 B/P (MAP) 129/79 (96) 137/74 (95) 127/83 (98) Pulse Ox 95 98 94 O2 Delivery Room Air Room Air Room Air Room Air 08/22/19 08/22/19 08/22/19 08/22/19 18:00 19:00 20:00 20:00 Temp 98.5 98.5 Pulse 82 82 92 Resp 18 18 35 B/P (MAP) 136/79 (98) 138/88 (105) 152/81 (104) Pulse Ox 94 97 97 O2 Delivery Room Air Room Air Room Air Room Air 08/22/19 08/22/19 08/22/19 08/22/19 21:00 21:42 22:00 23:00 Pulse 80 76 82 78 Resp 17 14 16 B/P (MAP) 128/87 (101) 128/87 136/88 (104) 132/76 (94) Pulse Ox 95 97 95 O2 Delivery Room Air Room Air Room Air 08/23/19 08/23/19 08/23/19 08/23/19 00:00 00:00 01:00 02:00 Temp 98.6 98.6 Pulse 78 82 92 Resp 16 27 18 B/P (MAP) 140/81 (100) 137/72 (93) 137/72 (93) Pulse Ox 95 92 97 O2 Delivery Room Air Room Air Room Air Room Air 08/23/19 08/23/19 08/23/19 08/23/19 03:00 04:00 04:00 05:00 Temp 98.9 98.9 Pulse 76 74 76 Resp 18 14 13 B/P (MAP) 118/75 (89) 118/81 (93) 128/74 (92) Pulse Ox 92 93 93 O2 Delivery Room Air Room Air Room Air Room Air 08/23/19 08/23/19 08/23/19 08/23/19 06:00 07:00 07:51 08:00 Temp 98.4 98.4 Pulse 70 70 70 70 Resp 13 13 14 B/P (MAP) 98/53 (68) 114/77 (89) 114/77 122/83 (96) Pulse Ox 94 94 97 O2 Delivery Room Air Room Air Room Air 08/23/19 08/23/19 08/23/19 08/23/19 08:00 09:00 10:00 11:14 Pulse 66 62 Resp 13 12 15 B/P (MAP) 135/83 (100) 133/82 (99) Pulse Ox 96 96 98 O2 Delivery Room Air Room Air Room Air Nasal Cannula O2 Flow Rate 4.0 08/23/19 08/23/19 08/23/19 08/23/19 11:18 11:45 12:00 12:00 Temp 98.2 98.2 Pulse 66 66 74 Resp 16 10 25 B/P (MAP) 129/81 (97) 144/80 (101) Pulse Ox 94 97 96 O2 Delivery Nasal Cannula Room Air Room Air Room Air O2 Flow Rate 2.0 08/23/19 08/23/19 08/23/19 08/23/19 12:15 12:30 12:45 13:00 Pulse 76 68 72 70 Resp 14 18 11 12 B/P (MAP) 123/80 (94) 153/83 (106) 133/84 (100) 122/79 (93) Pulse Ox 95 96 96 95 O2 Delivery Room Air Room Air Room Air Room Air Intake and Output 08/22/19 08/22/19 08/23/19 15:02 23:02 07:02 Intake Total 480 ml 1360 ml 642 ml Output Total 1200 ml 1550 ml 0 ml Balance -720 ml -190 ml 642 ml YASEMIN ALBERTO MD Aug 23, 2019 14:43
[2019-08-23] MEDS: CYCLOBENZAPRINE 10 MG TABLET. PO PRN ×2 (14:55→20:40)
--- NOTE | 2019-08-23 16:06 | NUR ---
Femostop pressure changes. 1245: 155 mm HG 1330: 125 mm hg 1400: 114 mm hg 1415: 100 mm hg 1430: 85 1445: 65 1500: 50 1530: 40 1515: 25 1530: 15
[2019-08-23] MEDS: ZOLPIDEM 5 MG TABLET. PO SCH (20:40)
[2019-08-23] MEDS: ATORVASTATIN CALCIUM 40 MG TABLET. PO SCH (20:40)
[2019-08-24 03:20] VITALS: BP 141/74
[2019-08-24 05:29] LABS: HEMATOCRIT 42.2 % (39.0-53.0); HEMOGLOBIN 14.2 g/dL (13.0-17.5); RED BLOOD COUNT 4.63 x10^6/uL (4.30-5.70); RED CELL DISTRIBUTION WIDTH 13.8 % (11.5-14.5); WHITE BLOOD COUNT 6.1 x10^3/uL (4.0-11.0)
[2019-08-24 05:43] LABS: CALCIUM 9.1 mg/dL (8.5-10.1); GFR 97.8; POTASSIUM 4.1 mmol/L (3.5-5.1)
[2019-08-24 07:00] VITALS: BP 122/71
[2019-08-24] MEDS: METOPROLOL TART IMMED RELEASE 25 MG TABLET. PO SCH (09:05)
[2019-08-24] MEDS: ASPIRIN ENTERIC COATED 81 MG TABLET.DR. PO SCH (09:05)
[2019-08-24] MEDS: TICAGRELOR 90 MG TABLET. PO SCH (09:06)
--- NOTE | 2019-08-24 10:05 | PDOC ---
[facility] PROGRESS NOTE Chief Complaint Chief Complaint Chest pain HTN HLD CAD - with 2 prior stents Obesity - BMI 32 History of Present Illness History of Present Illness 08/24/19 Pt seen and examined at bedside Stents placed in RCA and obtuse branch of LCX 2 snf guards were present Clean dressing on left groin after stent placement Charts and labs reviewed 08/23/[address] Posada Plan to repreat cardiac cath today, stent x2 Cont Aggrastat. pt pain is better, feels well Pain better Slept much better with ambien Vitals/I&O Vitals/I&O: Vital Signs Date Time Temp Pulse Resp B/P (MAP) Pulse Ox O2 Delivery O2 Flow Rate FiO2 08/24/19 09:05 95 122/71 08/24/19 08:00 Room Air 08/24/19 04:11 2.0 08/24/19 03:20 98.9 18 94 98.9 l I & O 08/23/19 08/23/19 08/24/19 15:00 23:00 07:00 Intake Total 519.78 ml 1034 ml 400 ml Output Total 1200 ml 400 ml 650 ml Balance -680.22 ml 634 ml -250 ml Physical Exam General: Alert, Oriented X3, Cooperative, No acute distress Heart: Regular rate Lungs: Clear Abdomen: Normal bowel sounds Extremities: No clubbing, No cyanosis, No edema Skin: No breakdown Labs Labs: Laboratory Tests Test 08/24/19 05:15 White Blood Count 6.1 x10^3/uL (4.0-11.0) Red Blood Count 4.63 x10^6/uL (4.30-5.70) Hemoglobin 14.2 g/dL (13.0-17.5) Hematocrit 42.2 % (39.0-53.0) Mean Corpuscular Volume 91 fL (79-100) Mean Corpuscular Hemoglobin 31 pg (25-35) Mean Corpuscular Hemoglobin Concent 34 g/dL (31-37) Red Cell Distribution Width 13.8 % (11.5-14.5) Platelet Count 187 x10^3/uL (140-400) Sodium Level 144 mmol/L (136-145) Potassium Level 4.1 mmol/L (3.5-5.1) Chloride Level 109 mmol/L (98-107) Carbon Dioxide Level 25 mmol/L (21-32) Anion Gap 10 (6-14) Blood Urea Nitrogen 11 mg/dL (8-26) Creatinine 1.0 mg/dL (0.7-1.3) Estimated GFR (Cockcroft-Gault) 97.8 Glucose Level 100 mg/dL (70-99) Calcium Level 9.1 mg/dL (8.5-10.1) Review of Systems Review of Systems: No nausea, no vomiting No chest pain, no palpitations Assessment and Plan Assessmemt and Plan Problems Medical Problems: (1) Chest pain Status: Acute Assessment HTN HLD CAD Chest pain Plan Continue BP control Heparin gtt Continue statins ASA daily Cardiac monitoring Discharge when appropriate with cardiology Full code Comment Review of Relevant I have reviewed the following items hernan (where applicable) has been applied. Medications: Current Medications Medications (Trade) Dose Ordered Sig/Elisa Route PRN Reason Start Time Stop Time Status Last Admin Dose Admin Heparin Sodium/ Sodium Chloride (HEPARIN for ARTERIAL LINE FLUSH) 1,000 unit 1X ONCE IART 08/23/19 11:00 08/23/19 11:03 DC 08/23/19 11:13 Midazolam HCl (Versed) 2 mg 1X ONCE IV 08/23/19 11:00 08/23/19 11:03 DC 08/23/19 11:15 Fentanyl Citrate (Fentanyl 2ml Vial) 100 mcg 1X ONCE IV 08/23/19 11:00 08/23/19 11:03 DC 08/23/19 11:14 Iodixanol (Visipaque 320) 100 ml 1X ONCE IART 08/23/19 11:00 08/23/19 11:03 DC 08/23/19 11:14 Bivalirudin (Angiomax) 250 mg 1X ONCE IV 08/23/19 11:00 08/23/19 11:03 DC 08/23/19 11:13 Lidocaine HCl (Lidocaine 1% 20ml Vial) 20 ml 1X ONCE INJ 08/23/19 11:00 08/23/19 11:03 DC 08/23/19 11:13 Cyclobenzaprine HCl (Flexeril) 10 mg PRN Q6HRS PRN PO MUSCLE SPASMS 08/23/19 14:45 08/23/19 20:40 Lorazepam (Ativan Inj) 1 mg 1X ONCE IVP 08/23/19 15:30 08/23/19 15:31 DC 08/23/19 14:55 VICENTA ALONZO III DO Aug 24, 2019 10:05
[2019-08-24 11:00] VITALS: BP 123/79
[2019-08-24] MEDS: IV 1/2 NORMAL SALINE 1,000 ML IV SCH (14:40)
[2019-08-24 15:00] VITALS: BP 115/66
--- NOTE | 2019-08-24 15:58 | PDOC ---
CARDIO Progress Notes Date and Time Date of Service 08/24/2019 Time of Evaluation 1540 Subjective Subjective: No Chest Pain, No shortness of breath, No Palpitations Vitals Vitals Vital Signs Date Time Temp Pulse Resp B/P (MAP) Pulse Ox O2 Delivery O2 Flow Rate FiO2 08/24/19 11:00 98.5 80 18 123/79 (94) 96 Nasal Cannula 98.5 08/24/19 04:11 2.0 Weight Weight [ ] Input and Output Intake and Output Intake and Output 08/24/19 07:00 Intake Total 1953.78 ml Output Total 2250 ml Balance -296.22 ml Intake Oral 1140 ml IV Total 813.78 ml Output Urine Total 2250 ml Laboratory Labs Laboratory Tests Test 08/24/19 05:15 White Blood Count 6.1 x10^3/uL (4.0-11.0) Red Blood Count 4.63 x10^6/uL (4.30-5.70) Hemoglobin 14.2 g/dL (13.0-17.5) Hematocrit 42.2 % (39.0-53.0) Mean Corpuscular Volume 91 fL (79-100) Mean Corpuscular Hemoglobin 31 pg (25-35) Mean Corpuscular Hemoglobin Concent 34 g/dL (31-37) Red Cell Distribution Width 13.8 % (11.5-14.5) Platelet Count 187 x10^3/uL (140-400) Sodium Level 144 mmol/L (136-145) Potassium Level 4.1 mmol/L (3.5-5.1) Chloride Level 109 mmol/L (98-107) Carbon Dioxide Level 25 mmol/L (21-32) Anion Gap 10 (6-14) Blood Urea Nitrogen 11 mg/dL (8-26) Creatinine 1.0 mg/dL (0.7-1.3) Estimated GFR (Cockcroft-Gault) 97.8 Glucose Level 100 mg/dL (70-99) Calcium Level 9.1 mg/dL (8.5-10.1) Physical Exam HEENT: Neck Supple W Full Motion Chest: Symmetric LUNGS: Clear to Auscultation Heart: S1S2, RRR (SR) Abdomen: Soft N/T Extremities: No Edema, No Calf Tenderness Neurology: alert, oriented, follow commands Assessment Assessment 1. NSTEMI: S/P PCI/[place] to RCA and OM with patent previous stent to LAD 2. HTN: controlled. EF nml. 3. HLP 4. CAD 5. Obesity Recommendations 1. ASA/brilinta. If facility does not cover the latter then will switch to ECASA 325 mg and plavix 75 mg 2. Metoprolol. 3. OK to DC to correction[facility] facility. 4. Will arrange outpt f/u with facility 5. cardiac rehab ANA SHARMA APRN Aug 24, 2019 15:58
[2019-08-24] MEDS ORDERED: ASPIRIN ENTERIC COATED 325 MG TABLET.DR. PO ONE (16:00)
[2019-08-24] MEDS ORDERED: CLOPIDOGREL BISULFATE 75 MG TABLET PO ONE (16:00)
[2019-08-24] MEDS ORDERED: CLOP75TA PO (16:53)
[2019-08-24] MEDS ORDERED: ATOR40TA59 PO (16:54)
[2019-08-24] MEDS ORDERED: METO25TA4 PO (16:54)
[2019-08-24] MEDS ORDERED: ASPI325T8 PO (16:54)
[2019-08-24] MEDS: IV NORMAL SALINE 1000ML BAG 1,000 ML IV SCH (17:20)
--- NOTE | 2019-08-24 18:00 | NUR ---
Discharge Note: GUERDA PASTRANA Discharge instructions and discharge home medications reviewed with Other facility and a copy given. All questions have been answered and understanding verbalized. The following instructions and handouts were given: post cardiac catheterization care, metoprolol, lipitor, plavix, and aspirin. Discontinued lines and drains: Peripheral IV intact. Patient discharged to Facility with Law Enforcement via Wheelchair
[2019-08-25] MEDS ORDERED: CLOPIDOGREL BISULFATE 75 MG TABLET PO SCH (08:00)
[2019-08-25] MEDS ORDERED: ASPIRIN ENTERIC COATED 325 MG TABLET.DR. PO SCH (08:00)
--- NOTE | 2019-08-27 08:57 | DS ---
DATE OF DISCHARGE: 08/24/2019 ADMISSION DIAGNOSIS: Chest pain. DISCHARGE DIAGNOSIS: Coronary artery disease with 2 new stents placed, one to the RCA and one to the circumflex. HOSPITAL COURSE: The patient is a pleasant middle-aged male, who presented with chest pain. He was admitted. We consulted Cardiology. He was taken for cardiac catheterization. He did receive 2 new stents, one to the RCA, one to the circumflex. Post-procedure, he did well. We discharged to home with cardiac close followup. DISPOSITION: Home. ACTIVITY: As tolerated. DIET: Cardiac. MEDICATIONS: Please see the MRAD. TOTAL TIME: 34 minutes. VICENTA ALONZO DO DR: MELECIO/guillermo JOB#: [id number] / [id number]
== END 2019-08-24 18:00 | disposition home or self-care (01) | DRG 247 ==
LOC: EEVIPCON 15:38 → ER 15:38 → 2 NORTH 17:19 → 1 WEST ICU 08-20 15:45 → 2 NORTH 08-23 18:25
PROVIDERS: ADMIT Internal Medicine; ATTEND Internal Medicine
PROC: B2111ZZ Fluoroscopy of Multiple Coronary Arteries using Low Osmolar Contrast (ICD-10-PCS; 2019-08-20)
PROC: 4A023N7 Measurement of Cardiac Sampling and Pressure, Left Heart, Percutaneous Approach (ICD-10-PCS; 2019-08-20)
PROC: 027135Z Dilation of Coronary Artery, Two Arteries with Two Drug-eluting Intraluminal Devices, Percutaneous Approach (ICD-10-PCS; principal; 2019-08-23)
DX: I21.4 Non-ST elevation (NSTEMI) myocardial infarction (principal); I25.10 Atherosclerotic heart disease of native coronary artery without angina pectoris; E11.9 Type 2 diabetes mellitus without complications; E66.9 Obesity, unspecified; E78.00 Pure hypercholesterolemia, unspecified; E78.5 Hyperlipidemia, unspecified; I10 Essential (primary) hypertension; I25.2 Old myocardial infarction; Z68.32 Body mass index [BMI] 32.0-32.9, adult; Z82.49 Family history of ischemic heart disease and other diseases of the circulatory system; Z87.891 Personal history of nicotine dependence; Z95.5 Presence of coronary angioplasty implant and graft; Z68.30 Body mass index [BMI] 30.0-30.9, adult
CPT/HCPCS: 92928; 93454; G0269; 36415; 71046; 80048; 80053; 80061; 82553; 82962; 83036; 83735; 83880; 84443; 84484; 85025; 85027; 85520; 85610; 85730; 93005; 93306; 99152; 99153; C1725; C1760; C1769; C1874; C1887; C1892; C9113; J0583; J1644; J1815; J2060; J2250; J2270; J3010; J3490; J7030; Q9967; C1771; G0378; J3246